=== PATIENT | female | born 1995 | race Caucasian/White ===

== ENCOUNTER 2017-03-27 01:25 | Inpatient (IN) | payer OTHER ==
[2017-03-27] MEDS ORDERED: morphine CARPU-JECT 2 MG/1 ML DISP.SYRIN IM ONE (02:07)
--- NOTE | 2017-03-27 02:07 | PDOC ---
History of Present Illness - General History Source: Patient Exam Limitations: No Limitations - History of Present Illness Initial Comments: 03/27/17 02:12 The patient is a 21 year old female with significant past medical history of sickle cell disease diagnosed as a young child, last transfusion summer 2015, and DVT (no longer on lovenox) who presents to the ED for sickle cell crisis. Patient reports she is compliant with her medications, but has had diffuse pain throughout. She also reports chills, but no fever. The patient denies diaphoresis, cough, SOB, chest pain, and palpitations. The patient denies abdominal pain, nausea, vomiting, and diarrhea. Allergies: ceftriaxone, ceftriaxone sodium, hydromorphone HCl, penicillins Social History: No alcohol, tobacco, or drug use reported. Past Surgical History: Cholecystectomy PCP: Dr. Phu Crow <Noy Swenson - Last Filed: 03/27/17 02:12> - General History Source: Patient <Kermit Babcock - Last Filed: 03/27/17 19:16> - General Chief Complaint: Pain, Acute Stated Complaint: PAIN Time Seen by Provider: 03/27/17 02:03 Past History <Noy Swenson - Last Filed: 03/27/17 02:12> - Past Medical History Anemia: Yes (sickle cell) Asthma: No Cancer: No Cardiac Disorders: No CVA: No COPD: No Dementia: No Diabetes: No Dialysis: No GI Disorders: No Disorders: No HTN: No Hypercholesterolemia: No HIV: No Kidney Stones: No Liver Disease: No Suicide Attempt (Hx): No Seizures: No Thyroid Disease: No - Surgical History Abdominal Surgery: No Appendectomy: No Cardiac Surgery: No Cholecystectomy: Yes Lung Surgery: No Neurologic Surgery: No - Reproductive History Spontaneous : 2 - Immunization History Immunization Up to Date: Yes - Psycho/Social/Smoking Cessation Hx Anxiety: No Suicidal Ideation: No Smoking Status: No Smoking History: Current every day smoker Years of Tobacco Use: 0 Have you smoked in the past 12 months: Yes Number of Cigarettes Smoked Daily: 10 Information on smoking cessation initiated: No Hx Alcohol Use: Yes Drug/Substance Use Hx: Yes Substance Use Type: None Hx Substance Use Treatment: No <Kermit Babcock - Last Filed: 03/27/17 19:16> - Past Medical History Allergies/Adverse Reactions: Allergies Allergy/AdvReac Type Severity Reaction Status Date / Time ceftriaxone Allergy Verified 03/27/17 02:05 ceftriaxone sodium Allergy rash Verified 03/27/17 02:05 [From Rocephin] redness hydromorphone HCl Allergy Rash Verified 03/27/17 02:05 [From Dilaudid] Penicillins Allergy Rash Verified 03/27/17 02:05 Home Medications: Ambulatory Orders Hydroxyurea [Hydrea] 1,000 mg PO DAILY 03/13/16 Multivitamins [Multivit ([facility] Formulary)] 1 tab PO DAILY #30 tab 09/02/16 Folic Acid - 1 mg PO DAILY tablet 10/11/16 Gabapentin [Neurontin -] 600 mg PO Q6HPO 30 Days 10/11/16 Levofloxacin [Levaquin -] 500 mg PO DAILY #4 tablet 10/11/16 Oxycodone HCl [Roxicodone -] 5 mg PO Q8H PRN 3 Days MDD 3 10/11/16 Review of Systems - Review of Systems Able to Perform ROS?: Yes Comments:: 03/27/17 02:13 CONSTITUTIONAL: +chills Absent: fever, no fatigue EYES: Absent: visual changes ENT: Absent: ear pain, no sore throat CARDIOVASCULAR: Absent: chest pain, no palpitations RESPIRATORY: Absent: cough, no SOB GI: Absent: abdominal pain, no nausea, no vomiting, no constipation, no diarrhea GENITOURINARY: Absent: dysuria, no frequency, no hematuria MUSCULOSKELETAL: +diffuse pain throughout the body SKIN: Absent: rash NEURO: Absent: headache <Bharrat,Noy - Last Filed: 03/27/17 02:12> *Physical Exam - Vital Signs Last Vital Signs Temp Pulse Resp BP Pulse Ox 98.2 F 89 18 117/64 98 03/27/17 02:01 03/27/17 02:01 03/27/17 02:01 03/27/17 02:01 03/27/17 02:01 - Physical Exam Comments: 03/27/17 02:13 GENERAL: Well-appearing, well-nourished. No apparent distress. HEENT: Normocephalic, atraumatic. PERRL, EOM intact. CARDIOVASCULAR: Normal S1, S2. Regular rate and rhythm. PULMONARY: Clear to auscultation bilaterally. ABDOMEN: Soft, non-distended, non-tender. EXTREMITIES: Normal ROM in all four extremities. No gross deformities. SKIN: Warm, dry. No rash NEUROLOGICAL: No focal neurological deficits. <Noy Swenson - Last Filed: 03/27/17 02:12> - Vital Signs Last Vital Signs Temp Pulse Resp BP Pulse Ox 98.2 F 89 18 117/64 98 03/27/17 02:01 03/27/17 02:01 03/27/17 02:01 03/27/17 02:01 03/27/17 02:01 <Kermit Babcock - Last Filed: 03/27/17 19:16> ED Treatment Course - LABORATORY CBC & Chemistry Diagram: 03/27/17 08:45 03/27/17 08:45 <Kermit Babcock - Last Filed: 03/27/17 19:16> Medical Decision Making - Medical Decision Making 03/27/17 19:16 Dr. Babcock: The scribe's documentation has been prepared under my direction and personally reviewed by me in its entirery. I confirm that the note above accurately reflects all work, treatment, procedures, and medical decision making performed by me. <Kermit Babcock - Last Filed: 03/27/17 19:16> *DC/Admit/Observation/Transfer - Attestations Scribe Attestion: 03/27/17 02:13 Documentation prepared by Noy Swenson, acting as medical specialist for Kermit Babcock MD/. <Noy Swenson - Last Filed: 03/27/17 02:12> - Discharge Dispostion Admit: Yes <Kermit Babcock - Last Filed: 03/27/17 19:16> Diagnosis at time of Disposition: Sickle cell crisis, Sickle cell pain crisis - Discharge Dispostion Condition at time of disposition: Fair - Referrals
[2017-03-27] MEDS ORDERED: SODIUM CHLORIDE 1,000 ML IV STA (02:08)
[2017-03-27] MEDS ORDERED: morphine CARPU-JECT 4 MG/1 ML DISP.SYRIN ONE ×3 (02:15→07:30)
[2017-03-27 02:59] LABS: MCH 30.2 pg (25.7-33.7); MCHC 33.4 g/dl (32.0-36.0); MEAN CELL VOLUME 90.3 fl (80-96); MEAN PLT VOLUME 7.2 fl (7.5-11.1); PLATELET COUNT 638 K/MM3 (134-434); WHITE BLOOD COUNT 21.3 K/mm3 (4.0-10.0)
[2017-03-27 03:13] LABS: INR 1.21 (0.82-1.09); PROTHROMBIN TIME (PATIENT) 13.4 SEC (9.98-11.88)
[2017-03-27 03:17] LABS: ALBUMIN 4.4 g/dl (3.4-5.0); ANION GAP 15 (8-16); BILIRUBIN,TOTAL 2.8 mg/dL (0.2-1.0); CALCIUM 8.9 mg/dL (8.5-10.1); CO2 21 mmol/L (21-32); CREATININE 0.6 mg/dL (0.55-1.02); GLUCOSE,RANDOM 113 mg/dL (74-106); SGPT/ALT 61 U/L (12-78)
[2017-03-27 03:18] LABS: ALK PHOS 127 U/L (45-117)
[2017-03-27 03:21] LABS: SGOT/AST 43 U/L (15-37)
[2017-03-27] MEDS ORDERED: morphine CARPU-JECT 2 MG/1 ML DISP.SYRIN IVPUSH ONE (03:28)
[2017-03-27] MEDS ORDERED: morphine CARPU-JECT 2 MG/1 ML DISP.SYRIN ONE (03:43)
[2017-03-27] MEDS ORDERED: LIDOCAINE 2.5%/PRILOCAINE 2.5% (5 Gram/TUBE) TP ONE (04:02)
[2017-03-27] MEDS ORDERED: DEXTROSE 5%-0.45% SALINE 1,000 ML IV SCH (04:45)
--- NOTE | 2017-03-27 04:49 | HP ---
Addendum entered and electronically signed by Estefani Russell RES 03/27/17 05: 58: A/P -leukocytosis 21.3 likely reactive due to spleninc sequestration (very high retic) -monitor cbc, ua Original Note: CHIEF COMPLAINT: "it hurts to walk" PCP: Dr Crow This is a 20 yo F with PMH of sickle cell disease, multiple crises, acute chest syndrome 10/20 s/p exchange transfusion through port, who presents due to sickle cell crisis with diffuse bone pain. Reports diffuse, worsening body/bone pain x 10 days, flank pain, abd pain, escalated to the point where its it too painful to walk. Denies chest pain, cough or sob. Denies f/c, h/a, dysuria, diarrhea, ocnstipation, melena, hematochezia, easy bleeding or bruising, numbness or paresthesia. ER course was notable for: (1) labs (2) cxr (3) benadryl, 1 L ns, morphine Recent Travel: denies PAST MEDICAL HISTORY: Sickle cell disease diagnosed as a young child, exchange transfusion 10/08/16 h/o DVT (no longer on lovenox) 2 spontaneous abortions PAST SURGICAL HISTORY: Cholecystectomy Social History: Smoking: current smoker Alcohol: denies Drugs: denies Allergies ceftriaxone Allergy (Verified 03/27/17 02:05) ceftriaxone sodium [From Rocephin] Allergy (Verified 03/27/17 02:05) rash redness hydromorphone HCl [From Dilaudid] Allergy (Verified 03/27/17 02:05) Rash Penicillins Allergy (Verified 03/27/17 02:05) Rash HOME MEDICATIONS: Home Medications Medication Instructions Recorded Hydroxyurea [Hydrea] 1,000 mg PO DAILY 03/13/16 Multivitamins [Multivit ([facility] 1 tab PO DAILY #30 tab 09/02/16 Formulary)] Folic Acid - 1 mg PO DAILY tablet 10/11/16 Gabapentin [Neurontin -] 600 mg PO Q6HPO 30 Days 10/11/16 Levofloxacin [Levaquin -] 500 mg PO DAILY #4 tablet 10/11/16 Oxycodone HCl [Roxicodone -] 5 mg PO Q8H PRN 3 Days MDD 3 10/11/16 REVIEW OF SYSTEMS CONSTITUTIONAL: Absent: fever, chills, diaphoresis, generalized weakness HEENT: Absent: rhinorrhea, nasal congestion, throat pain, throat swelling CARDIOVASCULAR: Absent: chest pain, syncope, palpitations, irregular heart rate, lightheadedness , peripheral edema RESPIRATORY: Absent: cough, shortness of breath, dyspnea with exertion, orthopnea, wheezing, stridor, hemoptysis GASTROINTESTINAL: Absent: nausea, vomiting, diarrhea, constipation, melena, hematochezia GENITOURINARY: Absent: dysuria, hematuria MUSCULOSKELETAL: Absent: joint swelling SKIN: Absent: rash, itching, pallor HEMATOLOGIC/IMMUNOLOGIC: Absent: easy bleeding, easy bruising, lymphadenopathy, frequent infections ENDOCRINE: Absent: unexplained weight gain, unexplained weight loss, heat intolerance, cold intolerance NEUROLOGIC: Absent: headache, focal weakness or paresthesias, dizziness PSYCHIATRIC: Absent: anxiety, depression PHYSICAL EXAMINATION Vital Signs - 24 hr 03/27/17 03/27/17 01:45 02:01 Temperature 98.2 F Pulse Rate 89 Respiratory 18 Rate Blood Pressure 117/64 O2 Sat by Pulse 98 98 Oximetry (%) GENERAL: Awake, alert, and fully oriented, in no acute distress. HEAD: Normal with no signs of trauma. EYES: Pupils equal, round and reactive to light, extraocular movements intact, sclera anicteric, conjunctiva clear. No lid lag. EARS, NOSE, THROAT: Moist mucous membranes. NECK: supple without lymphadenopathy, JVD, or masses. LUNGS: Breath sounds equal, clear to auscultation bilaterally. No wheezes, and no crackles. No accessory muscle use. HEART: Regular rate and rhythm, normal S1 and S2 ABDOMEN: Soft, mildly diffusely nontender, not distended, normoactive bowel sounds, no guarding, no rebound, no masses. slight hepatomegaly and splenomegaly. MUSCULOSKELETAL: diffuse tenderness UPPER EXTREMITIES: 2+ pulses, warm, well-perfused. No cyanosis. No clubbing. No peripheral edema. LOWER EXTREMITIES: 2+ pulses, warm, well-perfused. No calf tenderness. No peripheral edema. NEUROLOGICAL: Cranial nerves II-XII grossly intact. Normal speech. PSYCHIATRIC: Cooperative. Good eye contact. Appropriate mood and affect. SKIN: Warm, dry Laboratory Results - last 24 hr 03/27/17 03/27/17 03/27/17 01:45 02:45 02:45 WBC 21.3 H D RBC 3.04 L Hgb 9.2 L Hct 27.4 L MCV 90.3 MCHC 33.4 RDW 21.0 H D Plt Count 638 H D MPV 7.2 L Neutrophils % Y Lymphocytes % Y Retic Count 11.49 H* D INR 1.21 H Sodium 143 Potassium 3.9 Chloride 107 Carbon Dioxide 21 Anion Gap 15 BUN 8 D Creatinine 0.6 Creat Clearance w eGFR > 60 Random Glucose 113 H D Calcium 8.9 Total Bilirubin 2.8 H D AST 43 H ALT 61 D Alkaline Phosphatase 127 H D Total Protein 8.0 D Albumin 4.4 D Serum , Qual 03/27/17 02:45 WBC RBC Hgb Hct MCV MCHC RDW Plt Count MPV Neutrophils % Lymphocytes % Retic Count INR Sodium Potassium Chloride Carbon Dioxide Anion Gap BUN Creatinine Creat Clearance w eGFR Random Glucose Calcium Total Bilirubin AST ALT Alkaline Phosphatase Total Protein Albumin Serum , Qual Negative ASSESSMENT/PLAN: This is a 20 yo F with PMH of sickle cell disease, multiple crises, acute chest syndrome 10/20 s/p exchange transfusion through port, who presents due to sickle cell crisis with diffuse bone pain. Sickle Cell Crisis -hgb drop from 11 baseline to 9.2 -retic 11.49, likely splenic sequestration, LFTs mildly elevated, below baseine , unlikely hepatic sequestration -s/p 1L bolus NS -D51/2NS @125 to avoid hypernatremia in sickle cell patient -morphine 4mg Q4H PNR -continue home Hydroxyurea 1g POd -folic acid, multivitamins -continue home gabapentin 600 q 6 -hold home effexor 5 q 6 -daily AM CXR to monitor for appearance of acute chest up to at lest 48 hr s/p admission -Lovenox to address hypercoagulable state risk -Dr Morrow consult FEN D51/2NS @125 lytes stable regular diet Jax Dispo: admit med kehinde Problem List - Problem (1) Sickle cell crisis Code(s): D57.00 - HB-SS DISEASE WITH CRISIS, UNSPECIFIED (2) Sickle cell pain crisis Code(s): D57.00 - HB-SS DISEASE WITH CRISIS, UNSPECIFIED (3) Sickle cell anemia Code(s): D57.1 - SICKLE-CELL DISEASE WITHOUT CRISIS Qualifiers: Sickle-cell associated disorders: with unspecified crisis Qualified Code(s): D57.00 - Hb-SS disease with crisis, unspecified; D57.0 - Hb-SS disease with crisis Visit type - Emergency Visit Emergency Visit: Yes ED Registration Date: 03/27/17 Care time: The patient presented to the Emergency Department on the above date and was hospitalized for further evaluation of their emergent condition. - New Patient This patient is new to me today: Yes Date on this admission: 03/27/17 - Critical Care Critical Care patient: No
--- NOTE | 2017-03-27 05:49 | PN ---
Teaching Attending Note Name of Resident: Estefani Russell ATTENDING PHYSICIAN STATEMENT I saw and evaluated the patient. I reviewed the resident's note and discussed the case with the resident. I agree with the resident's findings and plan as documented. SUBJECTIVE: 21 year old female with history of SS disease presents c/o 3 day history of generalized pain 10/10 in intensity . PAST MEDICAL HISTORY: Sickle cell disease Acute chest syndrome 2016 Exchange transfusion DVT PAST SURGICAL HISTORY: Cholecystectomy Social History: Smoking: current smoker Alcohol: denies Drugs: denies Allergies ceftriaxone Allergy (Verified 03/27/17 02:05) ceftriaxone sodium [From Rocephin] Allergy (Verified 03/27/17 02:05) rash redness hydromorphone HCl [From Dilaudid] Allergy (Verified 03/27/17 02:05) Rash Penicillins Allergy (Verified 03/27/17 02:05) Rash HOME MEDICATIONS: Home Medications Medication Instructions Recorded Hydroxyurea [Hydrea] 1,000 mg PO DAILY 03/13/16 Multivitamins [Multivit ([facility] 1 tab PO DAILY #30 tab 09/02/16 Formulary)] Folic Acid - 1 mg PO DAILY tablet 10/11/16 Gabapentin [Neurontin -] 600 mg PO Q6HPO 30 Days 10/11/16 Levofloxacin [Levaquin -] 500 mg PO DAILY #4 tablet 10/11/16 Oxycodone HCl [Roxicodone -] 5 mg PO Q8H PRN 3 Days MDD 3 10/11/16 OBJECTIVE: Vital Signs Temperature 98.2 F 03/27/17 02:01 Pulse Rate 89 03/27/17 02:01 Respiratory Rate 18 03/27/17 02:01 Blood Pressure 117/64 03/27/17 02:01 O2 Sat by Pulse Oximetry (%) 98 03/27/17 02:01 LUNGS: Breath sounds equal, clear to auscultation bilaterally. No wheezes, and no crackles. No accessory muscle use. HEART: Regular rate and rhythm, normal S1 and S2 ABDOMEN: Soft, mildly diffusely nontender, not distended, normoactive bowel sounds, no guarding, no rebound, no masses. slight hepatomegaly and splenomegaly. MUSCULOSKELETAL: diffuse tenderness UPPER EXTREMITIES: 2+ pulses, warm, well-perfused. No cyanosis. No clubbing. No peripheral edema. LOWER EXTREMITIES: 2+ pulses, warm, well-perfused. No calf tenderness. No peripheral edema. Abnormal Lab Results 03/27/17 03/27/17 03/27/17 01:45 02:45 02:45 WBC 21.3 H D RBC 3.04 L Hgb 9.2 L Hct 27.4 L RDW 21.0 H D Plt Count 638 H D MPV 7.2 L Retic Count 11.49 H* D INR 1.21 H Random Glucose 113 H D Total Bilirubin 2.8 H D AST 43 H Alkaline Phosphatase 127 H D CXR - no acute pathology ASSESSMENT AND PLAN: 1. Acute SS pain crisis in a patient with SS disease - HB is stable. - IVF - Incentive spirometry - Monitor LDH, Retic count -c/w hydrea and folic acid - PPX Lovenox 2. Leukocytosis - likely reactive however infection can not be excluded - UA - monitor CBC -if no improvement - consider other sources 3. DVT ppx - Lvenox SC
[2017-03-27 07:24] LABS: ANISOCYTOSIS 2+; MICROCYTOSIS 1+; POIKILOCYTOSIS 2+
[2017-03-27] MEDS: morphine CARPU-JECT 4 MG/1 ML DISP.SYRIN IVPUSH PRN ×5 (07:32→22:45)
[2017-03-27 09:07] LABS: BASOPHIL 0.7 % (0-2.0); EOSINOPHIL 1.8 % (0-4.5); MCH 31.1 pg (25.7-33.7); MCHC 34.5 g/dl (32.0-36.0); MEAN PLT VOLUME 7.3 fl (7.5-11.1); NEUTROPHILS 53.8 % (42.8-82.8); PLATELET COUNT 567 K/MM3 (134-434); RDW 21.8 % (11.6-15.6); WHITE BLOOD COUNT 16.1 K/mm3 (4.0-10.0)
[2017-03-27] MEDS ORDERED: FOLIC ACID 1 MG TABLET (FP) ONE (09:19)
[2017-03-27] MEDS ORDERED: ENOXAPARIN NA (PORCINE) 40 MG/0.4 ML DISP.SYRIN SQ ONE (09:20)
[2017-03-27] MEDS: FOLIC ACID 1 MG TABLET (FP) PO SCH (09:23)
[2017-03-27] MEDS: ENOXAPARIN NA (PORCINE) 40 MG/0.4 ML DISP.SYRIN SQ SCH (09:24)
[2017-03-27 09:26] LABS: INR 1.18 (0.82-1.09)
[2017-03-27 09:29] LABS: ACTIVATED PTT 23.3 SECONDS (26.9-34.4)
[2017-03-27 09:34] LABS: ALBUMIN 3.7 g/dl (3.4-5.0); ANION GAP 7 (8-16); BILIRUBIN,TOTAL 6.3 mg/dL (0.2-1.0); CALCIUM 8.1 mg/dL (8.5-10.1); CO2 26 mmol/L (21-32); GLUCOSE,RANDOM 89 mg/dL (74-106); PHOSPHOROUS 4.1 mg/dL (2.5-4.9); SGOT/AST 247 U/L (15-37); TOT PROT 6.7 g/dl (6.4-8.2)
[2017-03-27 09:35] LABS: ALK PHOS 188 U/L (45-117); CREATININE 0.6 mg/dL (0.55-1.02); SGPT/ALT 163 U/L (12-78)
[2017-03-27] MEDS: HYDROXYUREA 500 MG CAPSULE PO SCH (10:16)
[2017-03-27] MEDS: MULTIVITAMINS (DAILY MVI) TABLET (FP) PO SCH (10:16)
[2017-03-27] MEDS: DEXTROSE 5%-0.45% SALINE 1,000 ML IV SCH ×2 (10:34→17:30)
[2017-03-27 11:22] VITALS: BMI 24.3
[2017-03-27 12:39] LABS: POLYCHROMASIA 2+
[2017-03-27 12:40] LABS: ANISOCYTOSIS 3+; HYPOCHROMIA 1+; MICROCYTOSIS 2+; POIKILOCYTOSIS 1+; TARGET CELLS FEW
[2017-03-27] MEDS ORDERED: PT OWN MED DRAWER 7, Y5N ONE (18:31)
--- NOTE | 2017-03-27 21:32 | PN ---
Progress Note (short form) - Note Progress Note: Consult dictated 21 year old followed at [facility] by Dr. Crow. On hydrea 1000 mg daily. Previously monthly transfusions, but states she has not had transfusions since she left [facility] in 10/20 with acute chest syndrome and after exchange transfusion. Prior history includes DVT of LLE. Presents now with 3 days of severe pain especially involving LE's. Has right hip pains. Has negative chest X-ray, but some pain on deep inspiration on left side. Had increase in LFT's including bilirubin with sono revealing hepatomegaly ( prior cholecystectomy) ON IV hydration, analgesics, folate , hydrea. To monitor CBC, retics. To obtain Duplex LE's. To add levoquin.
--- NOTE | 2017-03-27 23:35 | CONS ---
DATE OF CONSULTATION: 03/27/2017 HISTORY OF PRESENT ILLNESS: This is a 21-year-old with sickle cell disease who comes in with several days of sever pain, especially in her lower extremities. The patient has been hospitalized multiple times in the past. In 2016, she underwent exchange transfusion. Previously, she has been followed by Dr. Crow at [facility]. She had been transfused frequently, once monthly, but states that since her exchange transfusion, she only was seen once by Dr. Crow during her hospitalization. PAST MEDICAL HISTORY: Includes DVT of the left lower extremity and cholecystectomy. SOCIAL HISTORY: The patient smokes. ALLERGIES: Include CEFTRIAXONE and PENICILLIN. PENICILLIN causes a rash. HYDROMORPHONE causes a rash. CEFTRIAXONE causes a rash. MEDICINES: Include Hydrea. The patient states she does not take folic acid. The patient states she is on gabapentin 600 q. 6 h and the patient states she is on morphine long-acting 15 mg twice a day. REVIEW OF SYSTEMS: Denies headaches, diplopia, epistaxis, dysphagia. States she has some difficulty with deep inspiration. No chest pain. No nausea, vomiting, diarrhea. No dysuria. Last period March 05. Severe bone pain. Right hip pain. PHYSICAL EXAMINATION: Vital Signs: Currently, BP 103/71, pulse 71, respiratory 16, afebrile. HEENT: [place]. EOM intact. Oropharynx unremarkable. Lungs: Relatively clear. Cardiac: RSR. Breasts: No dominant masses. Abdomen: Mild tenderness in the right upper quadrant. Fullness right upper quadrant. Minimum tenderness in the left upper quadrant. Lower Extremities: Tenderness to palpation. LABORATORY STUDIES: WBC 21,000 and 16,000. Hematocrit 27 and 24. Platelets 638 and 567,000. Reticulocyte count 11.99%. INR 1.18. Chemistry is 142, 4.1, 109, 26. Creatinine 0.6. Bilirubin 6.3. AST 247. ALT 163. Alkaline phosphatase 188. Chest x-ray: No acute infiltrate. Sonogram of right upper quadrant: Nonrevealing. test negative. IMPRESSION: Sickle cell crisis with bone pain. PLAN: Folic acid, morphine, IV hydration, Hydrea, Lovenox. If the pain persists, will add Levaquin. The patient has a history of DVT and has pain in the upper lateral right thigh. Requests Duplex, which we will order. Thank you. JORGE MENG M.D. [id number]
[2017-03-28] MEDS: morphine CARPU-JECT 4 MG/1 ML DISP.SYRIN IVPUSH PRN ×7 (02:31→22:59)
[2017-03-28 07:53] LABS: BASOPHIL 0.7 % (0-2.0); EOSINOPHIL 3.3 % (0-4.5); MCH 31.4 pg (25.7-33.7); MEAN CELL VOLUME 89.9 fl (80-96); MEAN PLT VOLUME 7.6 fl (7.5-11.1); NEUTROPHILS 63.1 % (42.8-82.8); PLATELET COUNT 555 K/MM3 (134-434); RDW 22.8 % (11.6-15.6); WHITE BLOOD COUNT 11.8 K/mm3 (4.0-10.0)
[2017-03-28] MEDS ORDERED: LEVOFLOXACIN 500 MG IVPB 100 ML IVPB ONE (08:00)
[2017-03-28 09:21] LABS: ALBUMIN 3.8 g/dl (3.4-5.0); ALK PHOS 241 U/L (45-117); ANION GAP 9 (8-16); BILIRUBIN,TOTAL 8.4 mg/dL (0.2-1.0); CALCIUM 8.5 mg/dL (8.5-10.1); CO2 23 mmol/L (21-32); CREATININE 0.6 mg/dL (0.55-1.02); GLUCOSE,RANDOM 89 mg/dL (74-106); SGPT/ALT 381 U/L (12-78); TOT PROT 6.7 g/dl (6.4-8.2)
[2017-03-28 09:22] LABS: SGOT/AST 430 U/L (15-37)
[2017-03-28] MEDS: FOLIC ACID 1 MG TABLET (FP) PO SCH (09:57)
[2017-03-28] MEDS: MULTIVITAMINS (DAILY MVI) TABLET (FP) PO SCH (09:57)
[2017-03-28] MEDS: HYDROXYUREA 500 MG CAPSULE PO SCH (10:00)
[2017-03-28] MEDS: ENOXAPARIN NA (PORCINE) 40 MG/0.4 ML DISP.SYRIN SQ SCH (10:04)
[2017-03-28 11:26] LABS: ANISOCYTOSIS 2+; POIKILOCYTOSIS 1+; POLYCHROMASIA 2+; TARGET CELLS 1+
[2017-03-28] MEDS: DEXTROSE 5%-0.45% SALINE 1,000 ML IV SCH ×2 (13:14→16:37)
--- NOTE | 2017-03-28 15:38 | PN ---
Progress Note (short form) - Note Progress Note: Subjective: The patient was seen and examined at the bedside, she has complaints of right hip pain and b/l lower extremity pain. Liver enzymes trending up, f/u GI consult, hepatitis panel panel Current Medications Generic Name Dose Route Start Last Admin Trade Name Freq PRN Reason Stop Dose Admin Enoxaparin Sodium 40 mg 03/27/17 10:00 03/28/17 10:04 Lovenox - SQ 40 mg DAILY MAYELA Administration Folic Acid 1 mg 03/27/17 10:00 03/28/17 09:57 Folic Acid - PO 1 mg DAILY MAYELA Administration Hydroxyurea 1,000 mg 03/27/17 10:00 03/28/17 10:00 Hydrea - PO 1,000 mg DAILY MAYELA Administration Dextrose/Sodium Chloride 1,000 mls @ 150 mls/hr 03/27/17 10:30 03/28/17 13:14 D5-1/2ns - IV 150 mls/hr ASDIR MAYELA Administration Levofloxacin 100 mls @ 100 mls/hr 03/29/17 10:00 Levaquin 500 Mg Premixed Ivpb - IVPB DAILY MAYELA Morphine Sulfate 4 mg 03/27/17 10:27 03/28/17 13:11 Morphine Injection - IVPUSH 4 mg Q3H PRN Administration PAIN Multivitamins/Minerals/Vitamin C 1 tab 03/27/17 10:00 03/28/17 09:57 Tab-A-Vit - PO 1 tab DAILY MAYELA Administration Objective: Vital Signs Period Temp Pulse Resp BP Sys/Oliveira Pulse Ox Last 24 Hr 98.3 F-98.4 F 66-88 16-20 90-103/46-62 Physical Exam: General: NAD, A&Ox3 Lungs: CTA bilaterally Heart: RRR, S1S2 Abd: Soft, non-tender, non-distended. Normoactive bowel sounds Ext: Warm, well-perfused. B/l lower extremity tenderness throughout. Right hip tenderness. Patient refused ROM Neuro: CN 2-12 intact CBCD WBC 11.8 K/mm3 (4.0-10.0) H 03/28/17 06:18 RBC 2.80 M/mm3 (3.60-5.2) L 03/28/17 06:18 Hgb 8.8 GM/dL (10.7-15.3) L 03/28/17 06:18 Hct 25.1 % (32.4-45.2) L 03/28/17 06:18 MCV 89.9 fl (80-96) 03/28/17 06:18 MCHC 35.0 g/dl (32.0-36.0) 03/28/17 06:18 RDW 22.8 % (11.6-15.6) H 03/28/17 06:18 Plt Count 555 K/MM3 (134-434) H 03/28/17 06:18 MPV 7.6 fl (7.5-11.1) 03/28/17 06:18 CMP Sodium 141 mmol/L (136-145) 03/28/17 06:18 Potassium 4.3 mmol/L (3.5-5.1) 03/28/17 06:18 Chloride 109 mmol/L (98-107) H 03/28/17 06:18 Carbon Dioxide 23 mmol/L (21-32) 03/28/17 06:18 Anion Gap 9 (8-16) 03/28/17 06:18 BUN 4 mg/dL (7-18) L D 03/28/17 06:18 Creatinine 0.6 mg/dL (0.55-1.02) 03/28/17 06:18 Creat Clearance w eGFR > 60 (>60) 03/28/17 06:18 Random Glucose 89 mg/dL (74-106) 03/28/17 06:18 Calcium 8.5 mg/dL (8.5-10.1) 03/28/17 06:18 Total Bilirubin 8.4 mg/dL (0.2-1.0) H D 03/28/17 06:18 AST 430 U/L (15-37) H D 03/28/17 06:18 ALT 381 U/L (12-78) H D 03/28/17 06:18 Alkaline Phosphatase 241 U/L (45-117) H D 03/28/17 06:18 Total Protein 6.7 g/dl (6.4-8.2) 03/28/17 06:18 Albumin 3.8 g/dl (3.4-5.0) 03/28/17 06:18 Assessment: This is a 20 year old woman with sickle cell disease (SS type on electrophoresis in 2012), acute chest syndrome 10/20 s/p exchange transfusion, DVT and cholecystectomy who presents to the ED with body/bone pain x10 days, back pain, right hip pain, difficulty ambulating. Plan: 1) Sickle cell crisis: - Previous admission with acute chest syndrome requiring exchange transfusion - Chest X-ray here negative for acute process - No evidence of splenic sequestration, no splenomegaly on exam, no hypovolemia (BP at baseline), Hgb stable and around baseline - Started on Levaquin empirically, will hold now given worsening LFT (discussed with Dr. Lagunas , leukocytosis on admission, now trending down, f/u UA - Hgb stable - Continue IV fluids - Continue folic acid - Continue Hydroxyurea - Continue multivitamin - Continue Morphine - Appreciate hematology consult 2) Transaminitis: - Elevated direct bilirubin - Hepatitis panel pending - Liver ultrasound with hepatomegaly and probable mild diffuse fatty infiltration of the liver - F/u MRCP to r/o biliary stones - F/u GI consult 3) Hx of DVT - Diagnosed in 2015, no long on anticoagulation - Patient complains of b/l lower extremity pain, ed thigh pain - B/l lower extremity doppler negative for DVT 4) F/E/N: - Regular diet - Monitor electrolytes 5) Prophylaxis: - Lovenox 40mg sq daily - OOB ambulating 6) Dispo: - Once condition improves CODE STATUS: FULL CODE Visit type - Emergency Visit Emergency Visit: Yes ED Registration Date: 03/27/17 Care time: The patient presented to the Emergency Department on the above date and was hospitalized for further evaluation of their emergent condition. - New Patient This patient is new to me today: Yes Date on this admission: 03/28/17 - Critical Care Critical Care patient: No
[2017-03-28] MEDS ORDERED: ONDANSETRON *ODT* 4 MG TABLET SL ONE (16:11)
--- NOTE | 2017-03-28 16:49 | CON.GI ---
Consult Consult Specialty:: GI Referred by:: Hospitalist Service Reason for Consultation:: Abnormnal liver chemistries - History of Present Illness Chief Complaint: "I had bone pain in my legs and right hip" History of Present Illness: 21F Admitted for evaluation of pain in legs and right hip. Called because liver chemistries are rising. In review of [facility] her liver chemistries including transaminases, alkaline phosphatase and bilirubin have been mildly elevated in the past. 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 This has led to multiple blood transfusions spanning from 1999. She denies any abdominal pain She denies any recent travel , known exposure to infectious hepatitides and her tattoos were placed at a tattoo parlor. She had a laparoscopic cholecystectomy several years prior and gives a history of gallstones. - History Source History Provided By: Patient, Medical Record Limitations to Obtaining History: No Limitations - Past Medical History ...LMP: 09/07/16 Heme/Onc: Yes: Sickle Cell Disease (with history of Sickle Cell Crisis, Acute Chest Syndrome) - Past Surgical History Past Surgical History: Yes: Cholecystectomy (laparoscopic, x 2) - Alcohol/Substance Use Hx Alcohol Use: No History of Substance Use: reports: None - Smoking History Smoking history: Never smoked Aproximately how many cigarettes per day: 10 - Social History Usual Living Arrangement: Alone ADL: Independent Occupation: Unemploued Place of : [facility] History of Recent Travel: No Home Medications - Allergies Allergies/Adverse Reactions: Allergies Allergy/AdvReac Type Severity Reaction Status Date / Time ceftriaxone Allergy Verified 03/27/17 02:05 ceftriaxone sodium Allergy rash Verified 03/27/17 02:05 [From Rocephin] redness hydromorphone HCl Allergy Rash Verified 03/27/17 02:05 [From Dilaudid] Penicillins Allergy Rash Verified 03/27/17 02:05 - Home Medications Home Medications: Ambulatory Orders Hydroxyurea [Hydrea] 1,000 mg PO DAILY 03/13/16 Multivitamins [Multivit ([facility] Formulary)] 1 tab PO DAILY #30 tab 09/02/16 Folic Acid - 1 mg PO DAILY tablet 10/11/16 Gabapentin [Neurontin -] 600 mg PO Q6HPO 30 Days 10/11/16 Levofloxacin [Levaquin -] 500 mg PO DAILY #4 tablet 10/11/16 Oxycodone HCl [Roxicodone -] 5 mg PO Q8H PRN 3 Days MDD 3 10/11/16 Family Disease History - Family Disease History Family Disease History: Other: Father (alive: sickle cell trait), Mother (alive : asthma, sickle cell trait, schizophrenia, ? liver problem), Brother (1, asthma ), Sister (1 w/ bipolar dz, asthma 1 w/ Sickle Cell Trait), Son ([place], sickle cell trait), Daughter (1 in infancy from necrotizing enterocolitis, sickle cell trait) Other Family History: No family history of colorectal cancer or other GI malignancy Review of Systems - Review of Systems Constitutional: reports: Weakness. denies: Fever Cardiovascular: reports: Chest Pain (pleuritic at bases bilaterally) Respiratory: denies: Cough, SOB Gastrointestinal: denies: Abdominal Pain Musculoskeletal: reports: Joint Pain Physical Exam-GI Vital Signs: Vital Signs Temperature 98.4 F 03/28/17 13:50 Pulse Rate 80 03/28/17 13:50 Respiratory Rate 16 03/28/17 13:50 Blood Pressure 102/54 03/28/17 13:50 O2 Sat by Pulse Oximetry (%) 96 03/28/17 09:00 Constitutional: Yes: Calm Eyes: Yes: Sclera Icterus Cardiovascular: Yes: Regular Rate and Rhythm, Murmur (2/6 systolic murmur) Respiratory: Yes: CTA Bilaterally Gastrointestinal Inspection: Yes: Scars (+ pelvic surgical scar). No: Distention ...Auscultate: Yes: Normoactive Bowel Sounds ...Palpate: Yes: Hepatomegaly, Tenderness (TTP RUQ). No: Splenomegaly ...Percussion: No: Tympanitic Edema: No Neurological: Yes: Alert, Oriented Labs: CBC, BMP 03/28/17 06:18 03/28/17 06:18 INR, PTT INR 1.18 (0.82-1.09) H 03/27/17 08:45 Imaging - Results Ultrasound: Report Reviewed (hepatomegaly, ? fatty liver, no biliary ductal dilatation) Problem List - Problems (1) Abnormal liver function tests Assessment/Plan: Presentation is not primarily RUQ pain, more of a secondary finding on exam and given her abnormal liver chemistries. Do not suspect Acute Hepatic Crisis. Also hepatic sequestration crisis unlikely as her H/H seems to be stable. Intrahepatic cholestasis in the setting of acute crisis is a possibility superimposed on a baseline underlying liver dysfunction, possibly from iron overload given her history. Would continue supportive measures, minimize hepatotoxic agents Screening for infectious hepatitis seems reasonable as well as further evaluation of her biliary and hepatic anatomy / vasculature with triple phase MRI/MRCP of abdomen with and without gadolinium. Check iron studies / ferritin Minimize hepatotoxic agents including antibiotics if feasible Check LDH AM labs Code(s): R79.89 - OTHER SPECIFIED ABNORMAL FINDINGS OF BLOOD CHEMISTRY
[2017-03-28] MEDS: SODIUM CHLORIDE 1,000 ML IV SCH (19:00)
[2017-03-28 19:11] LABS: URINE APPEARANCE CLEAR; URINE BILIRUBIN NEGATIVE (NEGATIVE); URINE BLOOD NEGATIVE (NEGATIVE); URINE COLOR DKYELLOW; URINE GLUCOSE (UA) NEGATIVE (NEGATIVE); URINE KETONE NEGATIVE (NEGATIVE); URINE LEUK ESTERASE NEGATIVE (NEGATIVE); URINE NITRITE NEGATIVE (NEGATIVE); URINE PROTEIN NEGATIVE (NEGATIVE); URINE UROBILINOGEN 4.0 E.U/dl E.U./dl (0.2-1.0)
--- NOTE | 2017-03-28 21:15 | PN ---
Progress Note (short form) - Note Progress Note: patient seen and examined c/o pain, mostly rt. hip and other bones Last Vital Signs Temp Pulse Resp BP Pulse Ox 98.8 F 94 H 18 101/58 96 03/28/17 19:32 03/28/17 19:32 03/28/17 19:32 03/28/17 19:32 03/28/17 09:00 Cor: RSR, No murmurs, No gallops Lungs: Clear to P&A Abd: Soft, Normal bowel sounds, No organomegaly Ext:No significant edema Skin: No rashes, Integument intact Abnormal Lab Results 03/27/17 03/28/17 03/28/17 08:45 06:18 06:18 WBC 11.8 H RBC 2.80 L Hgb 8.8 L Hct 25.1 L RDW 22.8 H Plt Count 555 H Retic Count 14.46 H* D Chloride 109 H BUN 4 L D Total Bilirubin 8.4 H D Direct Bilirubin AST 430 H D ALT 381 H D Alkaline Phosphatase 241 H D Urine Urobilinogen Crossmatch See Detail 03/28/17 03/28/17 03/28/17 11:14 18:30 21:30 WBC 17.3 H D RBC 2.96 L Hgb 9.2 L Hct 27.1 L RDW 21.7 H Plt Count 467 H Retic Count Chloride BUN Total Bilirubin Direct Bilirubin 5.3 H D AST ALT Alkaline Phosphatase Urine Urobilinogen 4.0 e.u/dl H Crossmatch Active Medications Generic Name Dose Route Start Last Admin Trade Name Freq PRN Reason Stop Dose Admin Diphenhydramine HCl 12.5 mg 03/28/17 21:13 Benadryl Injection - IVPB Q8H PRN DRY SKIN Enoxaparin Sodium 40 mg 03/27/17 10:00 03/28/17 10:04 Lovenox - SQ 40 mg DAILY MAYELA Administration Folic Acid 1 mg 03/27/17 10:00 03/28/17 09:57 Folic Acid - PO 1 mg DAILY MAYELA Administration Hydroxyurea 1,000 mg 03/27/17 10:00 03/28/17 10:00 Hydrea - PO 1,000 mg DAILY MAYELA Administration Sodium Chloride 1,000 mls @ 150 mls/hr 03/28/17 17:15 03/28/17 19:00 Normal Saline - IV 150 mls/hr ASDIR MAYELA Administration Morphine Sulfate 4 mg 03/27/17 10:27 03/28/17 22:59 Morphine Injection - IVPUSH 4 mg Q3H PRN Administration PAIN Multivitamins/Minerals/Vitamin C 1 tab 03/27/17 10:00 03/28/17 09:57 Tab-A-Vit - PO 1 tab DAILY MAYELA Administration a/p 21 y/o with sickle cell crisis pain crisis abnormal LFTs--? cholestasis f/u mrcp iv hydration/pain control/folic acid monitor lfts benadryl for iytching incentive spirometry dvt prophylaxis f/u cultures f/u LDH/retic AVN of rt. hip--ortho consult will follow
[2017-03-28 22:07] LABS: BASOPHIL 0.8 % (0-2.0); EOSINOPHIL 2.2 % (0-4.5); MCHC 33.9 g/dl (32.0-36.0); MEAN CELL VOLUME 91.4 fl (80-96); NEUTROPHILS 71.2 % (42.8-82.8); RDW 21.7 % (11.6-15.6); WHITE BLOOD COUNT 17.3 K/mm3 (4.0-10.0)
[2017-03-28 22:41] LABS: MEAN PLT VOLUME 8.3 fl (7.5-11.1); PLATELET COUNT 467 K/MM3 (134-434)
[2017-03-28 22:43] LABS: ANISOCYTOSIS 2+; PLATELET COMMENT2 NO CLUMPING NOTED; PLATELET ESTIMATE SLT INCREASED (NORMAL); POIKILOCYTOSIS 1+; POLYCHROMASIA 1+
[2017-03-28 22:44] LABS: TARGET CELLS 1+
[2017-03-28 22:48] LABS: HOWELL-JOLLY BODIES SEEN
[2017-03-29] MEDS: SODIUM CHLORIDE 1,000 ML IV SCH ×3 (01:35→21:02)
[2017-03-29] MEDS: morphine CARPU-JECT 4 MG/1 ML DISP.SYRIN IVPUSH PRN ×4 (03:01→20:25)
[2017-03-29 07:51] LABS: BASOPHIL 0.6 % (0-2.0); EOSINOPHIL 3.9 % (0-4.5); MCH 31.8 pg (25.7-33.7); MCHC 35.2 g/dl (32.0-36.0); MEAN CELL VOLUME 90.3 fl (80-96); MEAN PLT VOLUME 7.3 fl (7.5-11.1); NEUTROPHILS 57.8 % (42.8-82.8); PLATELET COUNT 453 K/MM3 (134-434); RDW 22.5 % (11.6-15.6); WHITE BLOOD COUNT 12.2 K/mm3 (4.0-10.0)
[2017-03-29 08:29] LABS: ALBUMIN 3.3 g/dl (3.4-5.0); BILIRUBIN,DIRECT 2.6 mg/dL (0.0-0.2); BILIRUBIN,TOTAL 6.1 mg/dL (0.2-1.0); COCKROFT - GAULT 190.6125; CREATININE 0.4 mg/dL (0.55-1.02); TOT PROT 6.1 g/dl (6.4-8.2)
[2017-03-29 08:56] LABS: ACTIVATED PTT 21.1 SECONDS (26.9-34.4)
[2017-03-29 08:57] LABS: INR 1.2 (0.82-1.09); PROTHROMBIN TIME (PATIENT) 13.2 SEC (9.98-11.88)
[2017-03-29] MEDS: MULTIVITAMINS (DAILY MVI) TABLET (FP) PO SCH (09:08)
[2017-03-29] MEDS: HYDROXYUREA 500 MG CAPSULE PO SCH (09:08)
[2017-03-29] MEDS: FOLIC ACID 1 MG TABLET (FP) PO SCH (09:08)
[2017-03-29] MEDS: ENOXAPARIN NA (PORCINE) 40 MG/0.4 ML DISP.SYRIN SQ SCH (09:08)
[2017-03-29] MEDS ORDERED: LEVOFLOXACIN 500 MG IVPB 100 ML IVPB SCH (10:00)
--- NOTE | 2017-03-29 13:15 | PN ---
Progress Note (short form) - Note Progress Note: patient seen and examined c/o pain, mostly rt. hip and other bones Last Vital Signs Temp Pulse Resp BP Pulse Ox 98.3 F 68 20 105/53 95 03/29/17 14:25 03/29/17 14:25 03/29/17 14:25 03/29/17 14:25 03/28/17 21:00 Cor: RSR, No murmurs, No gallops Lungs: Clear to P&A Abd: Soft, Normal bowel sounds, No organomegaly Ext:No significant edema Skin: No rashes, Integument intact Abnormal Lab Results 03/27/17 03/28/17 03/28/17 08:45 18:30 21:30 WBC 17.3 H D RBC 2.96 L Hgb 9.2 L Hct 27.1 L RDW 21.7 H Plt Count 467 H MPV Retic Count INR PTT (Actin FS) Chloride BUN Creatinine Calcium Total Bilirubin Direct Bilirubin AST ALT Alkaline Phosphatase LD Total Total Protein Albumin Urine Urobilinogen 4.0 e.u/dl H Crossmatch See Detail 03/29/17 03/29/17 03/29/17 06:30 06:30 06:30 WBC 12.2 H RBC 2.46 L Hgb 7.8 L D Hct 22.2 L D RDW 22.5 H Plt Count 453 H MPV 7.3 L D Retic Count 14.04 H* INR PTT (Actin FS) Chloride 109 H BUN 5 L D Creatinine 0.4 L D Calcium 8.0 L Total Bilirubin 6.1 H D Direct Bilirubin 2.6 H D AST 149 H D ALT 282 H D Alkaline Phosphatase 237 H LD Total 343 H D Total Protein 6.1 L Albumin 3.3 L Urine Urobilinogen Crossmatch 03/29/17 06:30 WBC RBC Hgb Hct RDW Plt Count MPV Retic Count INR 1.20 H PTT (Actin FS) 21.1 L Chloride BUN Creatinine Calcium Total Bilirubin Direct Bilirubin AST ALT Alkaline Phosphatase LD Total Total Protein Albumin Urine Urobilinogen Crossmatch Home Medication List Medication Instructions Recorded Confirmed Type Hydroxyurea [Hydrea] 1,000 mg PO DAILY 03/13/16 03/27/17 History Active Medications Generic Name Dose Route Start Last Admin Trade Name Freq PRN Reason Stop Dose Admin Diphenhydramine HCl 12.5 mg 03/28/17 21:13 03/29/17 10:59 Benadryl Injection - IVPB 12.5 mg Q8H PRN Administration DRY SKIN Enoxaparin Sodium 40 mg 03/27/17 10:00 03/29/17 09:08 Lovenox - SQ 40 mg DAILY MAYELA Administration Folic Acid 1 mg 03/27/17 10:00 03/29/17 09:08 Folic Acid - PO 1 mg DAILY MAYELA Administration Hydroxyurea 1,000 mg 03/27/17 10:00 03/29/17 09:08 Hydrea - PO 1,000 mg DAILY MAYELA Administration Sodium Chloride 1,000 mls @ 150 mls/hr 03/28/17 17:15 03/29/17 09:08 Normal Saline - IV 150 mls/hr ASDIR MAYELA Administration Morphine Sulfate 4 mg 03/27/17 10:27 03/29/17 13:21 Morphine Injection - IVPUSH 4 mg Q3H PRN Administration PAIN Multivitamins/Minerals/Vitamin C 1 tab 03/27/17 10:00 03/29/17 09:08 Tab-A-Vit - PO 1 tab DAILY MAYELA Administration a/p 21 y/o with sickle cell crisis pain crisis abnormal LFTs--? cholestasis f/u mrcp iv hydration/pain control/folic acid monitor lfts benadryl for iytching incentive spirometry dvt prophylaxis transfuse PRBCs for cholestasis and crisis AVN of rt. hip--ortho consult will follow
--- NOTE | 2017-03-29 15:44 | PN ---
Physical Exam: SUBJECTIVE: Patient seen and examined. She c/o of gross body pain worsening whenever she moves, the morphine doesn't hold with movement OBJECTIVE: Vital Signs Period Temp Pulse Resp BP Sys/[place] Pulse Ox Last 24 Hr 98.2 F-98.8 F 68-94 18-20 90-113/53-66 95 PE Neuro: alert, awake, cn 2-12intact Pulm: distant, clear, catches breath d/t pain CV: s1 s2 rrr no mrg Abd: s nt nd + bs Ext: warm, no le edema Msk: R hip tenderness Laboratory Results - last 24 hr 03/28/17 03/29/17 03/29/17 21:30 06:30 06:30 WBC 17.3 H D 12.2 H RBC 2.96 L 2.46 L Hgb 9.2 L 7.8 L D Hct 27.1 L 22.2 L D MCV 91.4 90.3 MCHC 33.9 35.2 RDW 21.7 H 22.5 H Plt Count 467 H 453 H MPV 8.3 7.3 L D Neutrophils % 71.2 57.8 Lymphocytes % 21.4 D 31.1 D Monocytes % 4.4 6.6 Eosinophils % 2.2 3.9 Basophils % 0.8 0.6 Platelet Estimate Slt increased Platelet Comment No clumping noted Polychromasia 1+ Poikilocytosis 1+ Anisocytosis 2+ Sickle Cells 1+ Target Cells 1+ [place] [employer] Bodies Seen Retic Count INR PTT (Actin FS) Fibrinogen Sodium 140 Potassium 4.3 Chloride 109 H Carbon Dioxide 21 Anion Gap 10 BUN 5 L D Creatinine 0.4 L D Random Glucose 78 Calcium 8.0 L Total Bilirubin 6.1 H D Direct Bilirubin 2.6 H D AST 149 H D ALT 282 H D Alkaline Phosphatase 237 H LD Total 343 H D Total Protein 6.1 L Albumin 3.3 L Urine Color Urine Appearance Urine pH Ur Specific [place] Urine Protein Urine Glucose (UA) Urine Ketones Urine Blood Urine Nitrite Urine Bilirubin Urine Urobilinogen Ur Leukocyte Esterase Hepatitis A IgM Ab Hep Bs Antigen Hep B Core IgM Ab Hepatitis C Ab (EIA) Blood Type Antibody Screen Crossmatch 03/29/17 03/29/17 03/29/17 06:30 06:30 06:30 WBC RBC Hgb Hct MCV MCHC RDW Plt Count MPV Neutrophils % Lymphocytes % Monocytes % Eosinophils % Basophils % Platelet Estimate Platelet Comment Polychromasia Poikilocytosis Anisocytosis Sickle Cells Target Cells [place] Bodies Retic Count 14.04 H* INR 1.20 H PTT (Actin FS) 21.1 L Fibrinogen 342.0 Sodium Potassium Chloride Carbon Dioxide Anion Gap BUN Creatinine Random Glucose Calcium Total Bilirubin Cancelled Direct Bilirubin Cancelled AST Cancelled ALT Cancelled Alkaline Phosphatase Cancelled LD Total Total Protein Cancelled Albumin Cancelled Urine Color Urine Appearance Urine pH Ur Specific [place] Urine Protein Urine Glucose (UA) Urine Ketones Urine Blood Urine Nitrite Urine Bilirubin Urine Urobilinogen Ur Leukocyte Esterase Hepatitis A IgM Ab Hep Bs Antigen Hep B Core IgM Ab Hepatitis C Ab (EIA) Blood Type Antibody Screen Crossmatch Active Medications Generic Name Dose Route Start Last Admin Trade Name Freq PRN Reason Stop Dose Admin Diphenhydramine HCl 12.5 mg 03/28/17 21:13 03/29/17 10:59 Benadryl Injection - IVPB 12.5 mg Q8H PRN Administration DRY SKIN Enoxaparin Sodium 40 mg 03/27/17 10:00 03/29/17 09:08 Lovenox - SQ 40 mg DAILY MAYELA Administration Folic Acid 1 mg 03/27/17 10:00 03/29/17 09:08 Folic Acid - PO 1 mg DAILY MAYELA Administration Hydroxyurea 1,000 mg 03/27/17 10:00 03/29/17 09:08 Hydrea - PO 1,000 mg DAILY MAYELA Administration Sodium Chloride 1,000 mls @ 150 mls/hr 03/28/17 17:15 03/29/17 09:08 Normal Saline - IV 150 mls/hr ASDIR MAYELA Administration Morphine Sulfate 4 mg 03/27/17 10:27 03/29/17 13:21 Morphine Injection - IVPUSH 4 mg Q3H PRN Administration PAIN Multivitamins/Minerals/Vitamin C 1 tab 03/27/17 10:00 03/29/17 09:08 Tab-A-Vit - PO 1 tab DAILY MAYELA Administration Imaging: - Liver ultrasound with hepatomegaly and probable mild diffuse fatty infiltration of the liver Assessment: 20 year old woman with sickle cell disease (SS type on electrophoresis in 2012), acute chest syndrome 10/20 s/p exchange transfusion, DVT and cholecystectomy admitted with body/bone pain x10 days, back pain, right hip pain, difficulty ambulating. Plan: 1. Sickle cell crisis - No evidence of splenic sequestration - Retic count essentially unchanged - Continue to hold levaquin, wbc down trending, UA negative - Continue IV fluids - Continue folic acid - Continue Hydroxyurea - Continue multivitamin - Continue Morphine q3 2. Transaminitis - Abd MRI shows iron deposition of liver and spleen, no hepatic lesions to suggest HCC, no pancreaticobiliary dilation - Direct bili, LFT's and alk phos improved today 3. Avascular necrosis of R femoral head - MRI to further evaluate injury - Appreciate ortho consult 4. Hx of DVT - Diagnosed in 2016, no long on anticoagulation - B/l lower extremity doppler negative for DVT 5. Ppx - Lovenox 40mg sq daily - OOB ambulating/PT WBAT Visit type - Emergency Visit Emergency Visit: Yes ED Registration Date: 03/27/17 Care time: The patient presented to the Emergency Department on the above date and was hospitalized for further evaluation of their emergent condition. - New Patient This patient is new to me today: No - Critical Care Critical Care patient: No
--- NOTE | 2017-03-29 15:46 | CON.ORTH ---
Consult Consult Specialty:: Orthopedics Reason for Consultation:: R hip pain - History of Present Illness Chief Complaint: Right hip pain History of Present Illness: 21 y/o female with a history of sickle cell anemia admitted for evaluation of right hip pain. The patient states that she has been having pain to the lateral and posterior hip for several months, worsened over the past few weeks. The patient denies trauma/falls/injury. No back pain, paresthesias, saddle anesthesia, fever, chills. No other complaints. - History Source History Provided By: Patient Limitations to Obtaining History: No Limitations - Past Medical History ...LMP: 09/07/16 Heme/Onc: Yes: Sickle Cell Disease - Past Surgical History Past Surgical History: Yes: Cholecystectomy (laparoscopic, x 2) - Alcohol/Substance Use Hx Alcohol Use: No History of Substance Use: reports: None - Smoking History Smoking history: Never smoked Have you smoked in the past 12 months: Yes Aproximately how many cigarettes per day: 10 - Social History Usual Living Arrangement: Alone ADL: Independent Occupation: Unemploued History of Recent Travel: No Home Medications - Allergies Allergies/Adverse Reactions: Allergies Allergy/AdvReac Type Severity Reaction Status Date / Time ceftriaxone Allergy Verified 03/27/17 02:05 ceftriaxone sodium Allergy rash Verified 03/27/17 02:05 [From Rocephin] redness hydromorphone HCl Allergy Rash Verified 03/27/17 02:05 [From Dilaudid] Penicillins Allergy Rash Verified 03/27/17 02:05 - Home Medications Home Medications: Ambulatory Orders Hydroxyurea [Hydrea] 1,000 mg PO DAILY 03/13/16 Multivitamins [Multivit ([facility] Formulary)] 1 tab PO DAILY #30 tab 09/02/16 Folic Acid - 1 mg PO DAILY tablet 10/11/16 Gabapentin [Neurontin -] 600 mg PO Q6HPO 30 Days 10/11/16 Levofloxacin [Levaquin -] 500 mg PO DAILY #4 tablet 10/11/16 Oxycodone HCl [Roxicodone -] 5 mg PO Q8H PRN 3 Days MDD 3 10/11/16 Family Disease History - Family Disease History Family Disease History: Other: Father (alive: sickle cell trait), Mother (alive : asthma, sickle cell trait, schizophrenia, ? liver problem), Brother (1, asthma ), Sister (1 w/ bipolar dz, asthma 1 w/ Sickle Cell Trait), Son ([place], sickle cell trait), Daughter (1 in infancy from necrotizing enterocolitis, sickle cell trait) Other Family History: No family history of colorectal cancer or other GI malignancy Review of Systems - Review of Systems Constitutional: reports: No Symptoms Eyes: reports: No Symptoms HENT: reports: No Symptoms Neck: reports: No Symptoms Cardiovascular: reports: No Symptoms Respiratory: reports: No Symptoms Gastrointestinal: reports: No Symptoms Genitourinary: reports: No Symptoms Musculoskeletal: reports: Joint Pain (Right hip pain) Neurological: reports: No Symptoms Physical Exam for Ortho Vital Signs: Vital Signs Temperature 98.3 F 03/29/17 14:25 Pulse Rate 68 03/29/17 14:25 Respiratory Rate 20 03/29/17 14:25 Blood Pressure 105/53 03/29/17 14:25 O2 Sat by Pulse Oximetry (%) 95 03/28/17 21:00 Constitutional: Yes: Well Nourished, No Distress, Calm Neck: Yes: WNL, Supple, Trachea Midline Cardiovascular: Yes: WNL, Regular Rate and Rhythm Respiratory: Yes: WNL, Regular Extremities: Yes: WNL Integumentary: Yes: WNL Neurological: Yes: WNL, Alert, Oriented Psychiatric: Yes: WNL, Alert, Oriented Labs: CBC, BMP 03/29/17 06:30 03/29/17 06:30 INR, PTT INR 1.20 (0.82-1.09) H 03/29/17 06:30 Fibrinogen 342.0 mg/dL (238-498) 03/29/17 06:30 - Lower Extremity Hip: Yes: Right, Decreased ROM, Pain, Other (Tender over the greater trochanter. No tenderness anteriorly over the hip. Decreased ROM secondary to pain. Negative impingement. Negative MAHIN. 5/5 hip flexion, abduction, adduction. EHL/FHL intact. NVID.). No: Ecchymosis, Swelling - Affected Extremity Motor Strength: 5/5: Right Leg Peripheral Pulses: 2+ Left Doralis Pedis, 2+ Right Dorsalis Pedis Neuro/Vascular Assessment: Yes: Warm, [place], Normal Sensation Imaging - Results X-ray: Report Reviewed, Image Reviewed, Other (Right hip radiographs suggestive of chronic AVN) Problem List - Problems (1) Avascular necrosis of right femoral head Code(s): M87.051 - IDIOPATHIC ASEPTIC NECROSIS OF RIGHT FEMUR Assessment/Plan 21 y/o female with a h/o sickle cell disease admitted with right AVN of the femoral head -reviewed today's findings with the patient -we will obtain an MRI to further assess the degree of injury -will follow up on results -recommend PT and protective weight bearing
[2017-03-29] MEDS ORDERED: ACETAMINOPHEN 325 MG TABLET (FP) PO ONE (17:05)
--- NOTE | 2017-03-29 17:25 | PN ---
GI Progress Note Subjective: No acute events + diffuse pain complaints some RUQ discomfort - Objective Vital Signs: Vital Signs Temperature 98.3 F 03/29/17 14:25 Pulse Rate 68 03/29/17 14:25 Respiratory Rate 20 03/29/17 14:25 Blood Pressure 105/53 03/29/17 14:25 O2 Sat by Pulse Oximetry (%) 95 03/28/17 21:00 Constitutional: Calm Eyes: Yes: Sclera Icterus Cardiovascular: Yes: Regular Rate and Rhythm Respiratory: Yes: CTA Bilaterally Gastrointestinal Inspection: No: Distention ...Auscultate: Yes: Normoactive Bowel Sounds ...Palpate: No: Tenderness Edema: No Neurological: Yes: Alert, Oriented Labs: CBC, BMP 03/29/17 06:30 03/29/17 06:30 INR, PTT INR 1.20 (0.82-1.09) H 03/29/17 06:30 Fibrinogen 342.0 mg/dL (238-498) 03/29/17 06:30 Hepatic Panel Total Bilirubin 6.1 mg/dL (0.2-1.0) H D 03/29/17 06:30 Direct Bilirubin 2.6 mg/dL (0.0-0.2) H D 03/29/17 06:30 AST 149 U/L (15-37) H D 03/29/17 06:30 ALT 282 U/L (12-78) H D 03/29/17 06:30 Alkaline Phosphatase 237 U/L (45-117) H 03/29/17 06:30 Albumin 3.3 g/dl (3.4-5.0) L 03/29/17 06:30 Laboratory Tests 03/29/17 06:30 LD Total 343 H D Laboratory Tests 03/28/17 10:00 Hepatitis A IgM Ab Negative Hep Bs Antigen Negative Hep B Core IgM Ab Negative Hepatitis C Ab (EIA) <0.1 - ....Imaging MRI: Report Reviewed (No dilated ducts however poor MRCP images. signal changes in liver c/w iron overload) Problem List - Problems (1) Abnormal liver function tests Assessment/Plan: Some improvement. would think that if biliary obstruction causing this LFT abnormality there would be some ductal dilatation. Suspect secondary to sickle crisis, possibly cholestasis Check parvovirus B19 If further LFT elevation, further serologic w/u Monitor coags Code(s): R79.89 - OTHER SPECIFIED ABNORMAL FINDINGS OF BLOOD CHEMISTRY
[2017-03-29] MEDS ORDERED: ACETAMINOPHEN 325 MG TABLET (FP) ONE (20:52)
[2017-03-30] MEDS: morphine CARPU-JECT 4 MG/1 ML DISP.SYRIN IVPUSH PRN ×5 (01:10→21:34)
[2017-03-30] MEDS: SODIUM CHLORIDE 1,000 ML IV SCH ×3 (05:45→18:19)
[2017-03-30 08:55] LABS: BASOPHIL 0.9 % (0-2.0); EOSINOPHIL 4.9 % (0-4.5); MCH 31.7 pg (25.7-33.7); MCHC 35.1 g/dl (32.0-36.0); MEAN CELL VOLUME 90.3 fl (80-96); MEAN PLT VOLUME 7.3 fl (7.5-11.1); NEUTROPHILS 42.9 % (42.8-82.8); PLATELET COUNT 457 K/MM3 (134-434); RDW 22.8 % (11.6-15.6); WHITE BLOOD COUNT 11.1 K/mm3 (4.0-10.0)
[2017-03-30] MEDS: HYDROXYUREA 500 MG CAPSULE PO SCH (09:26)
[2017-03-30] MEDS: FOLIC ACID 1 MG TABLET (FP) PO SCH (09:26)
[2017-03-30] MEDS: MULTIVITAMINS (DAILY MVI) TABLET (FP) PO SCH ×2 (09:26→09:36)
[2017-03-30] MEDS: ENOXAPARIN NA (PORCINE) 40 MG/0.4 ML DISP.SYRIN SQ SCH (09:26)
[2017-03-30 09:50] LABS: ALBUMIN 3.4 g/dl (3.4-5.0); ALK PHOS 289 U/L (45-117); ANION GAP 10 (8-16); BILIRUBIN,TOTAL 4.6 mg/dL (0.2-1.0); CALCIUM 8.1 mg/dL (8.5-10.1); CO2 23 mmol/L (21-32); CREATININE 0.5 mg/dL (0.55-1.02); GLUCOSE,RANDOM 88 mg/dL (74-106); LDH 285 U/L (84-246); SGOT/AST 112 U/L (15-37); SGPT/ALT 220 U/L (12-78); TOT PROT 6.6 g/dl (6.4-8.2)
[2017-03-30 10:01] LABS: FERRITIN 2199.059 ng/ml (6.9-282.5)
[2017-03-30] MEDS ORDERED: morphine CARPU-JECT 2 MG/1 ML DISP.SYRIN IVPUSH ONE (11:58)
--- NOTE | 2017-03-30 14:16 | PN ---
Physical Exam: SUBJECTIVE: Patient seen and examined. She complaints of bone pain and wants pain medication. She did stand briefly with PT Events: - Unable to receive blood, access lost/pt hard stick - Liver enzymes improving OBJECTIVE: Vital Signs Period Temp Pulse Resp BP Sys/Oliveira Pulse Ox Last 24 Hr 97.7 F-98.5 F 67-83 18-22 100-110/46-63 95 PE Gen: weak appearing Neuro: alert, awake, cn 2-12intact Pulm: distant, + NC CV: s1 s2 rrr no mrg Abd: s nt nd + bs Ext: warm, no le edema Msk: R hip tenderness/ bone tenderness Laboratory Results - last 24 hr 03/27/17 03/29/17 03/30/17 08:45 06:30 08:37 WBC RBC Hgb Hct MCV MCHC RDW Plt Count MPV Neutrophils % Lymphocytes % Monocytes % Eosinophils % Basophils % Retic Count Haptoglobin < 10 L Sodium 141 Potassium 3.8 Chloride 108 H Carbon Dioxide 23 Anion Gap 10 BUN 7 D Creatinine 0.5 L D Creat Clearance w eGFR > 60 Random Glucose 88 Calcium 8.1 L Ferritin 2199.059 H Total Bilirubin 4.6 H D AST 112 H D ALT 220 H D Alkaline Phosphatase 289 H D LD Total 285 H Total Protein 6.6 Albumin 3.4 Blood Type B POSITIVE Antibody Screen Negative Crossmatch See Detail 03/30/17 08:37 WBC 11.1 H RBC 2.41 L Hgb 7.7 L Hct 21.8 L MCV 90.3 MCHC 35.1 RDW 22.8 H Plt Count 457 H MPV 7.3 L Neutrophils % 42.9 D Lymphocytes % 41.7 H D Monocytes % 9.6 Eosinophils % 4.9 H Basophils % 0.9 Retic Count 9.99 H D Haptoglobin Sodium Potassium Chloride Carbon Dioxide Anion Gap BUN Creatinine Creat Clearance w eGFR Random Glucose Calcium Ferritin Total Bilirubin AST ALT Alkaline Phosphatase LD Total Total Protein Albumin Blood Type Antibody Screen Crossmatch Active Medications Generic Name Dose Route Start Last Admin Trade Name Freq PRN Reason Stop Dose Admin Diphenhydramine HCl 12.5 mg 03/28/17 21:13 03/30/17 13:41 Benadryl Injection - IVPB 12.5 mg Q8H PRN Administration DRY SKIN Enoxaparin Sodium 40 mg 03/27/17 10:00 03/30/17 09:26 Lovenox - SQ 40 mg DAILY MAYELA Administration Folic Acid 1 mg 03/27/17 10:00 03/30/17 09:26 Folic Acid - PO 1 mg DAILY MAYELA Administration Hydroxyurea 1,000 mg 03/27/17 10:00 03/30/17 09:26 Hydrea - PO 1,000 mg DAILY MAYELA Administration Sodium Chloride 1,000 mls @ 150 mls/hr 03/28/17 17:15 03/30/17 13:45 Normal Saline - IV 150 mls/hr ASDIR MAYELA Administration Morphine Sulfate 4 mg 03/27/17 10:27 03/30/17 09:32 Morphine Injection - IVPUSH 4 mg Q3H PRN Administration PAIN Multivitamins/Minerals/Vitamin C 1 tab 03/27/17 10:00 03/30/17 09:36 Tab-A-Vit - PO Not Given DAILY MAYELA Imaging: - Liver ultrasound with hepatomegaly and probable mild diffuse fatty infiltration of the liver Microbiology 03/28/17 18:30 Urine Culture - Final Urine - Urine Clean Catch NO GROWTH OBTAINED 03/28/17 21:15 Blood Culture - Preliminary Blood - Peripheral Venous NO GROWTH OBTAINED AFTER 24 HOURS, INCUBATION TO CONTINUE FOR 4 DAYS. 03/28/17 19:20 Blood Culture - Preliminary Blood - Peripheral Venous NO GROWTH OBTAINED AFTER 24 HOURS, INCUBATION TO CONTINUE FOR 4 DAYS. 03/28/17 19:30 Blood Culture - Preliminary Blood - Peripheral Venous NO GROWTH OBTAINED AFTER 24 HOURS, INCUBATION TO CONTINUE FOR 4 DAYS. Assessment: 20 year old female with sickle cell disease (SS type on electrophoresis in 2012), acute chest syndrome 10/20 s/p exchange transfusion, DVT and cholecystectomy admitted with body/bone pain x10 days, back pain, right hip pain, difficulty ambulating. Plan: 1. Sickle cell crisis - Retic count improved - Haptaglobin low - WBC near baseline - Continue IV fluids - Continue folic acid - Continue Hydroxyurea - Continue multivitamin - Continue Morphine q3 - Awaiting port culture - Avoid picc line until r/o infection - Once obtain line EJ vs PIV in IR, give 1unit packed cells 2. Transaminitis - Improving - Abd MRI shows iron deposition of liver and spleen, no hepatic lesions to suggest HCC, no pancreaticobiliary dilation 3. Avascular necrosis of R femoral head - MRI shows small right hip joint effusion, and avascular necrosis - Awaiting ortho input and recs 4. Hx of DVT - Diagnosed in 2016, no longer on anticoagulation - B/l lower extremity doppler negative for DVT 5. Ppx - Lovenox 40mg sq daily - OOB ambulating/PT WBAT Visit type - Emergency Visit Emergency Visit: Yes ED Registration Date: 03/27/17 Care time: The patient presented to the Emergency Department on the above date and was hospitalized for further evaluation of their emergent condition. - New Patient This patient is new to me today: No - Critical Care Critical Care patient: No
[2017-03-30] MEDS ORDERED: PORTA CATH FLUSH 10 ML IVPUSH PRN (16:00)
--- NOTE | 2017-03-30 16:27 | PN ---
GI Progress Note Subjective: GI NOte: Still with abdominal pain but LFTs are dropping. Does not want me to scale down her diet. - Objective Vital Signs: Vital Signs Temperature 98.3 F 03/30/17 15:23 Pulse Rate 70 03/30/17 15:23 Respiratory Rate 18 03/30/17 15:23 Blood Pressure 103/42 03/30/17 15:23 O2 Sat by Pulse Oximetry (%) 95 03/30/17 09:00 CBC,CMP WBC 11.1 K/mm3 (4.0-10.0) H 03/30/17 08:37 RBC 2.41 M/mm3 (3.60-5.2) L 03/30/17 08:37 Hgb 7.7 GM/dL (10.7-15.3) L 03/30/17 08:37 Hct 21.8 % (32.4-45.2) L 03/30/17 08:37 MCV 90.3 fl (80-96) 03/30/17 08:37 MCHC 35.1 g/dl (32.0-36.0) 03/30/17 08:37 RDW 22.8 % (11.6-15.6) H 03/30/17 08:37 Plt Count 457 K/MM3 (134-434) H 03/30/17 08:37 MPV 7.3 fl (7.5-11.1) L 03/30/17 08:37 Neutrophils % 42.9 % (42.8-82.8) D 03/30/17 08:37 Lymphocytes % 41.7 % (8-40) H D 03/30/17 08:37 Monocytes % 9.6 % (3.8-10.2) 03/30/17 08:37 Eosinophils % 4.9 % (0-4.5) H 03/30/17 08:37 Basophils % 0.9 % (0-2.0) 03/30/17 08:37 Band Neutrophils 2.0 % (0-10) D 03/27/17 02:45 Platelet Estimate Slt increased (NORMAL) 03/28/17 21:30 Platelet Comment Few giant plts 03/28/17 21:30 Platelet Comment No clumping noted 03/28/17 21:30 Polychromasia 1+ 03/28/17 21:30 Hypochromic-Microcytic 1+ 03/27/17 08:45 Poikilocytosis 1+ 03/28/17 21:30 Anisocytosis 2+ 03/28/17 21:30 Microcytosis 2+ 03/27/17 08:45 Macrocytosis 1+ 03/27/17 08:45 Sickle Cells 1+ 03/28/17 21:30 Target Cells 1+ 03/28/17 21:30 [place] Bodies Seen 03/28/17 21:30 Retic Count 9.99 % (0.5-1.5) H D 03/30/17 08:37 Haptoglobin < 10 mg/dL (34-200) L 03/29/17 06:30 Sodium 141 mmol/L (136-145) 03/30/17 08:37 Potassium 3.8 mmol/L (3.5-5.1) 03/30/17 08:37 Chloride 108 mmol/L (98-107) H 03/30/17 08:37 Carbon Dioxide 23 mmol/L (21-32) 03/30/17 08:37 Anion Gap 10 (8-16) 03/30/17 08:37 BUN 7 mg/dL (7-18) D 03/30/17 08:37 Creatinine 0.5 mg/dL (0.55-1.02) L D 03/30/17 08:37 Creat Clearance w eGFR > 60 (>60) 03/30/17 08:37 Random Glucose 88 mg/dL (74-106) 03/30/17 08:37 Calcium 8.1 mg/dL (8.5-10.1) L 03/30/17 08:37 Phosphorus 4.1 mg/dL (2.5-4.9) D 03/27/17 08:45 Magnesium 2.0 mg/dL (1.8-2.4) 03/27/17 08:45 Ferritin 2199.059 ng/ml (6.9-282.5) H 03/30/17 08:37 Total Bilirubin 4.6 mg/dL (0.2-1.0) H D 03/30/17 08:37 Direct Bilirubin 2.6 mg/dL (0.0-0.2) H D 03/29/17 06:30 AST 112 U/L (15-37) H D 03/30/17 08:37 ALT 220 U/L (12-78) H D 03/30/17 08:37 Alkaline Phosphatase 289 U/L (45-117) H D 03/30/17 08:37 LD Total 285 U/L (84-246) H 03/30/17 08:37 Total Protein 6.6 g/dl (6.4-8.2) 03/30/17 08:37 Albumin 3.4 g/dl (3.4-5.0) 03/30/17 08:37 Serum , Qual Negative 03/27/17 02:45 Constitutional: Anxious Eyes: Yes: Sclera Icterus ...Auscultate: Yes: Normoactive Bowel Sounds ...Palpate: Yes: Soft, Other (nontender) Labs: CBC, BMP 03/30/17 08:37 03/30/17 08:37 INR, PTT INR 1.20 (0.82-1.09) H 03/29/17 06:30 Fibrinogen 342.0 mg/dL (238-498) 03/29/17 06:30 Laboratory Tests 03/30/17 03/30/17 08:37 08:37 WBC 11.1 H Hgb 7.7 L Total Bilirubin 4.6 H D AST 112 H D ALT 220 H D Alkaline Phosphatase 289 H D LD Total 285 H Assessment/Plan Abdominal pain and elevated LFTs related to sickle cell crisis. Dr Bae will be covering this weekend. Please call him as needed. Case discussed with Dr Lagunas.
[2017-03-30] MEDS ORDERED: ACETAMINOPHEN 325 MG TABLET (FP) PO PRN (16:50)
--- NOTE | 2017-03-30 23:27 | PN ---
Progress Note (short form) - Note Progress Note: patient seen and examined c/o pain, all over worst painc crisis ever per patient pain in the chest, RUQ Last Vital Signs Temp Pulse Resp BP Pulse Ox 98.0 F 72 18 103/50 95 03/31/17 06:00 03/31/17 06:00 03/31/17 06:00 03/31/17 06:00 03/30/17 21:00 Cor: RSR, No murmurs, No gallops Lungs: Clear to P&A Abd: Soft, Normal bowel sounds, No organomegaly Ext:No significant edema Skin: No rashes, Integument intact Abnormal Lab Results 03/27/17 03/30/17 03/31/17 08:45 08:37 08:42 RBC 3.18 L D Hgb 10.2 L D Hct 27.9 L D MCHC 36.5 H RDW 20.3 H D Plt Count 460 H MPV 7.4 L TIBC 202 L Crossmatch See Detail a/p 21 y/o with sickle cell crisis pain crisis abnormal LFTs--? benign cholestasis ? sicle crisis in the liver transfuse 2units PRBCs today PORT accessed by IR iv hydration/pain control/folic acid monitor lfts benadryl for itching incentive spirometry dvt prophylaxis f/u cultures f/u LDH/retic decrease iv fluids AVN of rt. hip--ortho consult will follow
[2017-03-31] MEDS: SODIUM CHLORIDE 1,000 ML IV SCH ×4 (03:37→20:03)
[2017-03-31 08:10] LABS: SERUM IRON 96 ug/dL (27-159); TOTAL IRON BINDING CAPACITY 202 ug/dL (250-450); UIBC 106 ug/dL (131-425)
[2017-03-31 09:08] LABS: BASOPHIL 1.1 % (0-2.0); EOSINOPHIL 3.8 % (0-4.5); MCH 32.1 pg (25.7-33.7); MCHC 36.5 g/dl (32.0-36.0); MEAN CELL VOLUME 87.8 fl (80-96); MEAN PLT VOLUME 7.4 fl (7.5-11.1); NEUTROPHILS 57.4 % (42.8-82.8); PLATELET COUNT 460 K/MM3 (134-434); RDW 20.3 % (11.6-15.6); WHITE BLOOD COUNT 9.7 K/mm3 (4.0-10.0)
[2017-03-31] MEDS ORDERED: PT OWN MED DRAWER 7, Y5N ONE (09:18)
[2017-03-31] MEDS: MULTIVITAMINS (DAILY MVI) TABLET (FP) PO SCH (09:20)
[2017-03-31] MEDS: FOLIC ACID 1 MG TABLET (FP) PO SCH (09:20)
[2017-03-31] MEDS: morphine CARPU-JECT 4 MG/1 ML DISP.SYRIN IVPUSH PRN ×3 (09:21→18:55)
[2017-03-31] MEDS: ENOXAPARIN NA (PORCINE) 40 MG/0.4 ML DISP.SYRIN SQ SCH (09:21)
[2017-03-31] MEDS: HYDROXYUREA 500 MG CAPSULE PO SCH (09:21)
[2017-03-31 11:31] LABS: ALBUMIN 3.6 g/dl (3.4-5.0); ANION GAP 8 (8-16); BILIRUBIN,TOTAL 3.8 mg/dL (0.2-1.0); CALCIUM 8.7 mg/dL (8.5-10.1); CO2 24 mmol/L (21-32); CREATININE 0.5 mg/dL (0.55-1.02); GLUCOSE,RANDOM 86 mg/dL (74-106); SGPT/ALT 183 U/L (12-78); TOT PROT 6.8 g/dl (6.4-8.2)
[2017-03-31 11:39] LABS: ALK PHOS 289 U/L (45-117); SGOT/AST 78 U/L (15-37)
--- NOTE | 2017-03-31 12:34 | PN ---
Physical Exam: SUBJECTIVE: Patient seen and examined. She appears improved today. She still complains of bone pain. She is watching TV and laughing. States her port was placed when she was 12 and has had an attack every 2 weeks to 1 month since then. OBJECTIVE: Vital Signs Period Temp Pulse Resp BP Sys/Oliveira Pulse Ox Last 24 Hr 98.0 F-98.6 F 60-73 18-18 94-120/42-62 95 PE Neuro: alert, awake, cn 2-12intact Pulm: distant, no cough no sob CV: s1 s2 rrr no mrg, RCW port dressing cdi Abd: s nt nd + bs Ext: warm, no le edema Msk: R hip tenderness/ bone tenderness Laboratory Results - last 24 hr 03/27/17 03/30/17 03/31/17 08:45 08:37 08:42 WBC 9.7 RBC 3.18 L D Hgb 10.2 L D Hct 27.9 L D MCV 87.8 MCHC 36.5 H RDW 20.3 H D Plt Count 460 H MPV 7.4 L Neutrophils % 57.4 D Lymphocytes % 29.2 D Monocytes % 8.5 Eosinophils % 3.8 Basophils % 1.1 Sodium Potassium Chloride Carbon Dioxide Anion Gap BUN Creatinine Creat Clearance w eGFR Random Glucose Calcium Iron 96 TIBC 202 L Iron Saturation 48 Total Bilirubin AST ALT Alkaline Phosphatase Total Protein Albumin Blood Type B POSITIVE Antibody Screen Negative Crossmatch See Detail 03/31/17 08:42 WBC RBC Hgb Hct MCV MCHC RDW Plt Count MPV Neutrophils % Lymphocytes % Monocytes % Eosinophils % Basophils % Sodium 142 Potassium 4.4 Chloride 110 H Carbon Dioxide 24 Anion Gap 8 BUN 7 Creatinine 0.5 L Creat Clearance w eGFR > 60 Random Glucose 86 Calcium 8.7 Iron TIBC Iron Saturation Total Bilirubin 3.8 H AST 78 H D ALT 183 H Alkaline Phosphatase 289 H Total Protein 6.8 Albumin 3.6 Blood Type Antibody Screen Crossmatch Active Medications Generic Name Dose Route Start Last Admin Trade Name Freq PRN Reason Stop Dose Admin Acetaminophen 325 mg 03/30/17 16:50 03/30/17 16:57 Tylenol - PO 325 mg Q6H PRN Administration FEVER OR PAIN Diphenhydramine HCl 12.5 mg 03/28/17 21:13 03/31/17 11:49 Benadryl Injection - IVPB 12.5 mg Q8H PRN Administration DRY SKIN Enoxaparin Sodium 40 mg 03/27/17 10:00 03/31/17 09:21 Lovenox - SQ 40 mg DAILY MAYELA Administration Folic Acid 1 mg 03/27/17 10:00 03/31/17 09:20 Folic Acid - PO 1 mg DAILY MAYELA Administration Hydroxyurea 1,000 mg 03/27/17 10:00 03/31/17 09:21 Hydrea - PO 1,000 mg DAILY MAYELA Administration IV Flush 10 ml 03/30/17 16:00 Elvis-Cath Flush IVPUSH PRN PRN FLUSH Sodium Chloride 1,000 mls @ 75 mls/hr 03/31/17 10:47 03/31/17 11:49 Normal Saline - IV 75 mls/hr ASDIR MAYELA Administration Morphine Sulfate 4 mg 03/27/17 10:27 03/31/17 09:21 Morphine Injection - IVPUSH 4 mg Q3H PRN Administration PAIN Multivitamins/Minerals/Vitamin C 1 tab 03/27/17 10:00 03/31/17 09:20 Tab-A-Vit - PO Not Given DAILY MAYELA Imaging: - Abd MRI shows iron deposition of liver and spleen, no hepatic lesions to suggest HCC, no pancreaticobiliary dilation Assessment: 20 year old female with sickle cell disease (SS type on electrophoresis in 2012), acute chest syndrome 10/20 s/p exchange transfusion, DVT and cholecystectomy admitted with body/bone pain x10 days, back pain, right hip pain, difficulty ambulating. Plan: 1. Sickle cell crisis - Transfused 2uprbc 03/30 with appropriate rise - Continue IV fluids 75cc/hr - Continue folic acid - Continue Hydroxyurea - Continue multivitamin - Continue Morphine q3 - Pre giles port cx no growth - Child port re fastened by IR, will need adult port in future 2. Transaminitis - d/t possible hepatic sequestration - Improving, alk phos no change 3. Avascular necrosis of R femoral head - MRI shows small right hip joint effusion, and avascular necrosis - Awaiting ortho input and recs 4. Hx of DVT - Diagnosed in 2015, no longer on anticoagulation - B/l lower extremity doppler negative for DVT 5. Ppx - Lovenox 40mg sq daily - OOB ambulating/PT WBAT Visit type - Emergency Visit Emergency Visit: Yes ED Registration Date: 03/27/17 Care time: The patient presented to the Emergency Department on the above date and was hospitalized for further evaluation of their emergent condition. - New Patient This patient is new to me today: No - Critical Care Critical Care patient: No
--- NOTE | 2017-03-31 15:08 | PN ---
Progress Note (short form) - Note Progress Note: Pt comf in bed states pain with any ambulation PE AFVSS RLE mild pain with ROM hip no pain at knee, ankle calves soft NT NVID MRI images and report reviewed. 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 AP R Hip avascular necrosis -I had an extended discussion with Cuca about her hip problem -we reviewed what AVN is and how it is related to sickle cell disease -discussed that this can lead to early degeneration of the hip joint and need for hip replacement -that being said, too early for surgery at this point -discussed that the younger she is at the time of hip replacement, the earlier she will need revision -recommend PT, TTWB to minimize stress on the hip joint -given that there is already collapse, generally core decompression surgery is not helpful -may follow up in the office as an outpatient
[2017-03-31 16:15] LABS: PARV B19 IGG 4.3 index (0.0-0.8); PARV B19 IGM 0.2 index (0.0-0.8)
--- NOTE | 2017-03-31 21:29 | PN ---
Progress Note (short form) - Note Progress Note: Patient seen in follow up. No events overnight. Ongoing diffuse pain - predominantly knees. Red cells 2 units yesterday. Meds reviewed. Acetaminophen (Tylenol -) 325 mg PO Q6H PRN PRN Reason: FEVER OR PAIN Last Admin: 03/30/17 16:57 Dose: 325 mg Diphenhydramine HCl (Benadryl Injection -) 12.5 mg IVPB Q8H PRN PRN Reason: DRY SKIN Last Admin: 03/31/17 20:00 Dose: 12.5 mg Enoxaparin Sodium (Lovenox -) 40 mg SQ DAILY [facility] Last Admin: 03/31/17 09:21 Dose: 40 mg Folic Acid (Folic Acid -) 1 mg PO DAILY [facility] Last Admin: 03/31/17 09:20 Dose: 1 mg Hydroxyurea (Hydrea -) 1,000 mg PO DAILY [facility] Last Admin: 03/31/17 09:21 Dose: 1,000 mg IV Flush (Elvis-Cath Flush) 10 ml IVPUSH PRN PRN PRN Reason: FLUSH Sodium Chloride (Normal Saline -) 1,000 mls @ 75 mls/hr IV ASDIR [facility] Last Admin: 03/31/17 20:03 Dose: 75 mls/hr Morphine Sulfate (Morphine Injection -) 4 mg IVPUSH Q3H PRN PRN Reason: PAIN Last Admin: 03/31/17 18:55 Dose: 4 mg Multivitamins/Minerals/Vitamin C (Tab-A-Vit -) 1 tab PO DAILY [facility] Last Admin: 03/31/17 09:20 Dose: Not Given On examination: Last Vital Signs Temp Pulse Resp BP Pulse Ox 98.2 F 63 20 104/67 95 03/31/17 14:37 03/31/17 14:37 03/31/17 14:37 03/31/17 14:37 03/30/17 21:00 General: In no acute distress. Oropharyngeal: No signs mucosal hemorrhage, no mucosal lesions. Extremities: Mild pallor and icterus, no pedal edema. Chest:good air entry bilaterally, clear. Abdomen: Soft, not distended, no palpable organomegaly, no masses. Neuro: Alert and oriented, non-focal. CVS: Normal sinus rhythm, S1, S2, no gallop or murmur. Skin: No rash. Labs reviewed: CBC, BMP 03/31/17 08:42 03/31/17 08:42 Assessment: SSD with crisis. Hepatopathy previously with elevated ALP and transaminases - now resolving. (S/ p cholecystectomy) S/P 2 units RBC yesterday. Continue present management - analagesia/hydration. Monitor liver enzymes.
[2017-04-01] MEDS: morphine CARPU-JECT 4 MG/1 ML DISP.SYRIN IVPUSH PRN ×6 (00:25→21:49)
[2017-04-01] MEDS: FOLIC ACID 1 MG TABLET (FP) PO SCH (09:22)
[2017-04-01] MEDS: HYDROXYUREA 500 MG CAPSULE PO SCH (09:22)
[2017-04-01] MEDS: ENOXAPARIN NA (PORCINE) 40 MG/0.4 ML DISP.SYRIN SQ SCH (09:22)
[2017-04-01] MEDS: MULTIVITAMINS (DAILY MVI) TABLET (FP) PO SCH (09:23)
[2017-04-01 09:25] LABS: BASOPHIL 1.2 % (0-2.0); EOSINOPHIL 4.3 % (0-4.5); MCH 31.5 pg (25.7-33.7); MCHC 35.6 g/dl (32.0-36.0); MEAN CELL VOLUME 88.4 fl (80-96); MEAN PLT VOLUME 7.1 fl (7.5-11.1); NEUTROPHILS 45.8 % (42.8-82.8); PLATELET COUNT 500 K/MM3 (134-434); RDW 20.5 % (11.6-15.6); WHITE BLOOD COUNT 11.8 K/mm3 (4.0-10.0)
[2017-04-01] MEDS: SODIUM CHLORIDE 1,000 ML IV SCH ×2 (10:26→23:28)
[2017-04-01 10:48] LABS: ANISOCYTOSIS 2+; HYPOCHROMIA FEW; PLATELET ESTIMATE INCREASED (NORMAL); POIKILOCYTOSIS 1+; POLYCHROMASIA FEW
[2017-04-01 10:49] LABS: MICROCYTOSIS 1+; TARGET CELLS 1+
--- NOTE | 2017-04-01 14:02 | PN ---
Progress Note (short form) - Note Progress Note: Patient seen in follow up. No events overnight. Ongoing diffuse pain - predominantly knees - but improved since yesterday. Meds reviewed. Current Medications Generic Name Dose Route Start Last Admin Trade Name Freq PRN Reason Stop Dose Admin Acetaminophen 325 mg 03/30/17 16:50 03/30/17 16:57 Tylenol - PO 325 mg Q6H PRN Administration FEVER OR PAIN Diphenhydramine HCl 12.5 mg 03/28/17 21:13 04/01/17 13:01 Benadryl Injection - IVPB 12.5 mg Q8H PRN Administration DRY SKIN Enoxaparin Sodium 40 mg 03/27/17 10:00 04/01/17 09:22 Lovenox - SQ 40 mg DAILY MAYELA Administration Folic Acid 1 mg 03/27/17 10:00 04/01/17 09:22 Folic Acid - PO 1 mg DAILY MAYELA Administration Hydroxyurea 1,000 mg 03/27/17 10:00 04/01/17 09:22 Hydrea - PO 1,000 mg DAILY MAYELA Administration IV Flush 10 ml 03/30/17 16:00 Elvis-Cath Flush IVPUSH PRN PRN FLUSH Sodium Chloride 1,000 mls @ 75 mls/hr 03/31/17 10:47 04/01/17 10:26 Normal Saline - IV 75 mls/hr ASDIR MAYELA Administration Morphine Sulfate 4 mg 03/27/17 10:27 04/01/17 12:23 Morphine Injection - IVPUSH 4 mg Q3H PRN Administration PAIN Multivitamins/Minerals/Vitamin C 1 tab 03/27/17 10:00 04/01/17 09:23 Tab-A-Vit - PO Not Given DAILY MAYELA On examination: Last Vital Signs Temp Pulse Resp BP Pulse Ox 97.7 F 92 H 16 134/72 95 04/01/17 10:00 04/01/17 10:00 04/01/17 10:00 04/01/17 10:00 03/30/17 21:00 General: In no acute distress. Oropharyngeal: No signs mucosal hemorrhage, no mucosal lesions. Extremities: Mild pallor and icterus, no pedal edema. Chest:good air entry bilaterally, clear. Abdomen: Soft, not distended, no palpable organomegaly, no masses. Neuro: Alert and oriented, non-focal. CVS: Normal sinus rhythm, S1, S2, no gallop or murmur. Skin: No rash. Labs reviewed: CBC, BMP 04/01/17 08:40 03/31/17 08:42 Assessment: SSD with crisis. Hepatopathy previously with elevated ALP and transaminases - now resolving. (S/ p cholecystectomy - remote) S/P 2 units RBC 2 days ago - Hb stable - and retic count coming down. Continue present management - analagesia/hydration. Monitor liver enzymes.
--- NOTE | 2017-04-01 15:57 | PN ---
Physical Exam: SUBJECTIVE: Patient seen and examined. She states her pain is mostly her chest, hip and knees. Although she is breathing with more east today. OBJECTIVE: Vital Signs Period Temp Pulse Resp BP Sys/Oliveira Pulse Ox Last 24 Hr 97.7 F-98.5 F 58-92 16-20 102-134/65-72 PE Neuro: alert, awake, cn 2-12intact Pulm: CTAB CV: s1 s2 rrr no mrg, RCW port dressing cdi Abd: s nt nd + bs Ext: warm, no le edema Msk: knee tenderness Laboratory Results - last 24 hr 03/30/17 04/01/17 08:37 08:40 WBC 11.8 H RBC 3.33 L Hgb 10.5 L Hct 29.4 L MCV 88.4 MCHC 35.6 RDW 20.5 H Plt Count 500 H MPV 7.1 L Neutrophils % 45.8 D Lymphocytes % 42.5 H D Monocytes % 6.2 Eosinophils % 4.3 Basophils % 1.2 Platelet Estimate Increased Platelet Comment No clumping noted Polychromasia Few Hypochromic-Microcytic Few Poikilocytosis 1+ Anisocytosis 2+ Microcytosis 1+ Sickle Cells 2+ Target Cells 1+ Retic Count 7.05 H D Parvovirus B19 IgG Ab 4.3 H Parvovirus B19 IgM Ab 0.2 Active Medications Generic Name Dose Route Start Last Admin Trade Name Freq PRN Reason Stop Dose Admin Acetaminophen 325 mg 03/30/17 16:50 03/30/17 16:57 Tylenol - PO 325 mg Q6H PRN Administration FEVER OR PAIN Diphenhydramine HCl 12.5 mg 03/28/17 21:13 04/01/17 13:01 Benadryl Injection - IVPB 12.5 mg Q8H PRN Administration DRY SKIN Enoxaparin Sodium 40 mg 03/27/17 10:00 04/01/17 09:22 Lovenox - SQ 40 mg DAILY MAYELA Administration Folic Acid 1 mg 03/27/17 10:00 04/01/17 09:22 Folic Acid - PO 1 mg DAILY MAYELA Administration Hydroxyurea 1,000 mg 03/27/17 10:00 04/01/17 09:22 Hydrea - PO 1,000 mg DAILY MAYELA Administration IV Flush 10 ml 03/30/17 16:00 Elvis-Cath Flush IVPUSH PRN PRN FLUSH Sodium Chloride 1,000 mls @ 75 mls/hr 03/31/17 10:47 04/01/17 10:26 Normal Saline - IV 75 mls/hr ASDIR MAYELA Administration Morphine Sulfate 3 mg 04/01/17 15:09 Morphine Injection - IVPUSH Q3H PRN PAIN Multivitamins/Minerals/Vitamin C 1 tab 03/27/17 10:00 04/01/17 09:23 Tab-A-Vit - PO Not Given DAILY MAYELA Microbiology 03/29/17 22:14 Blood Culture - Preliminary Blood - Elvis Cath NO GROWTH OBTAINED AFTER 48 HOURS, INCUBATION TO CONTINUE FOR 3 DAYS. 03/28/17 21:15 Blood Culture - Preliminary Blood - Peripheral Venous NO GROWTH OBTAINED AFTER 72 HOURS, INCUBATION TO CONTINUE FOR 2 DAYS. 03/28/17 19:20 Blood Culture - Preliminary Blood - Peripheral Venous NO GROWTH OBTAINED AFTER 72 HOURS, INCUBATION TO CONTINUE FOR 2 DAYS. 03/28/17 19:30 Blood Culture - Preliminary Blood - Peripheral Venous NO GROWTH OBTAINED AFTER 72 HOURS, INCUBATION TO CONTINUE FOR 2 DAYS. 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 Assessment: 20 year old female with sickle cell disease (SS type on electrophoresis in 2012), acute chest syndrome 10/20 s/p exchange transfusion, DVT and cholecystectomy admitted with body/bone pain x10 days, back pain, right hip pain, difficulty ambulating. Plan: 1. Sickle cell crisis - Hgb stable - 2uprbc 03/30 - Continue IVF 75cc/hr - Continue folic acid - Continue Hydroxyurea - Continue multivitamin - Decrease Morphine 3mg q3 - Child port re fastened by IR, will need adult port in future 2. Transaminitis - Likely d/t hepatic sequestration - Continues to improve, alk phos same - Will trend 3. Acute on chroinic AVN of R femoral head - Per Ortho WBAT, crutches, too early for surgery at this time - Follow up as outpt, if in 2 months no improvement consider replacement 4. Hx of DVT - Diagnosed in 2015, no longer on anticoagulation - B/l lower extremity doppler negative for DVT 5. Ppx - Lovenox 40mg sq daily - OOB ambulating/PT WBAT Visit type - Emergency Visit Emergency Visit: Yes ED Registration Date: 03/27/17 Care time: The patient presented to the Emergency Department on the above date and was hospitalized for further evaluation of their emergent condition. - New Patient This patient is new to me today: No - Critical Care Critical Care patient: No
[2017-04-02] MEDS: morphine CARPU-JECT 4 MG/1 ML DISP.SYRIN IVPUSH PRN ×5 (05:42→23:50)
[2017-04-02 09:17] LABS: EOSINOPHIL 5.2 % (0-4.5); MCH 31.6 pg (25.7-33.7); MCHC 35.2 g/dl (32.0-36.0); MEAN CELL VOLUME 89.9 fl (80-96); MEAN PLT VOLUME 7.8 fl (7.5-11.1); NEUTROPHILS 50.9 % (42.8-82.8); PLATELET COUNT 512 K/MM3 (134-434); RDW 20.1 % (11.6-15.6); WHITE BLOOD COUNT 12.8 K/mm3 (4.0-10.0)
[2017-04-02 09:21] LABS: ALBUMIN 3.8 g/dl (3.4-5.0); ALK PHOS 235 U/L (45-117); ANION GAP 8 (8-16); BILIRUBIN,TOTAL 2.9 mg/dL (0.2-1.0); CALCIUM 8.8 mg/dL (8.5-10.1); CO2 26 mmol/L (21-32); CREATININE 0.5 mg/dL (0.55-1.02); GLUCOSE,RANDOM 94 mg/dL (74-106); SGOT/AST 49 U/L (15-37); SGPT/ALT 117 U/L (12-78)
[2017-04-02] MEDS: MULTIVITAMINS (DAILY MVI) TABLET (FP) PO SCH (10:05)
[2017-04-02] MEDS: FOLIC ACID 1 MG TABLET (FP) PO SCH (10:05)
[2017-04-02] MEDS: HYDROXYUREA 500 MG CAPSULE PO SCH (10:05)
[2017-04-02] MEDS: ENOXAPARIN NA (PORCINE) 40 MG/0.4 ML DISP.SYRIN SQ SCH (10:06)
[2017-04-02] MEDS: SODIUM CHLORIDE 1,000 ML IV SCH ×3 (10:18→22:14)
--- NOTE | 2017-04-02 15:20 | PN ---
Physical Exam: SUBJECTIVE: Patient seen and examined. She is smiling today. She says she is finally feeling better. It took her some time to move this AM d/t leg and hip pain, but she is wanting to walk with crutches and go home. Denies chest pain OBJECTIVE: Vital Signs Period Temp Pulse Resp BP Sys/Oliveira Pulse Ox Last 24 Hr 98.0 F-98.4 F 60-82 18-18 105-112/60-77 95 PE Neuro: alert, awake, cn 2-12intact Pulm: CTAB CV: s1 s2 rrr no mrg, RCW port dressing cdi Abd: s nt nd + bs Ext: warm, no le edema Msk: knee tenderness, R hip tenderness Laboratory Results - last 24 hr 04/02/17 04/02/17 08:38 08:38 WBC 12.8 H RBC 3.23 L Hgb 10.2 L Hct 29.0 L MCV 89.9 MCHC 35.2 RDW 20.1 H Plt Count 512 H MPV 7.8 Neutrophils % 50.9 Lymphocytes % 36.4 Monocytes % 6.5 Eosinophils % 5.2 H Basophils % 1.0 Sodium 140 Potassium 4.0 Chloride 106 Carbon Dioxide 26 Anion Gap 8 BUN 7 Creatinine 0.5 L Creat Clearance w eGFR > 60 Random Glucose 94 Calcium 8.8 Total Bilirubin 2.9 H D AST 49 H D ALT 117 H D Alkaline Phosphatase 235 H Total Protein 7.0 Albumin 3.8 Active Medications Generic Name Dose Route Start Last Admin Trade Name Freq PRN Reason Stop Dose Admin Acetaminophen 325 mg 03/30/17 16:50 03/30/17 16:57 Tylenol - PO 325 mg Q6H PRN Administration FEVER OR PAIN Diphenhydramine HCl 12.5 mg 03/28/17 21:13 04/02/17 08:55 Benadryl Injection - IVPB 12.5 mg Q8H PRN Administration DRY SKIN Enoxaparin Sodium 40 mg 03/27/17 10:00 04/02/17 10:06 Lovenox - SQ 40 mg DAILY MAYELA Administration Folic Acid 1 mg 03/27/17 10:00 04/02/17 10:05 Folic Acid - PO 1 mg DAILY MAYELA Administration Hydroxyurea 1,000 mg 03/27/17 10:00 04/02/17 10:05 Hydrea - PO 1,000 mg DAILY MAYELA Administration IV Flush 10 ml 03/30/17 16:00 Elvis-Cath Flush IVPUSH PRN PRN FLUSH Sodium Chloride 1,000 mls @ 75 mls/hr 03/31/17 10:47 04/02/17 10:18 Normal Saline - IV 75 mls/hr ASDIR AMYELA Administration Morphine Sulfate 3 mg 04/01/17 15:09 04/02/17 13:28 Morphine Injection - IVPUSH 3 mg Q3H PRN Administration PAIN Multivitamins/Minerals/Vitamin C 1 tab 03/27/17 10:00 04/02/17 10:05 Tab-A-Vit - PO Not Given DAILY MAYELA Imaging: - Abd MRI shows iron deposition of liver and spleen, no hepatic lesions to suggest HCC, no pancreaticobiliary dilation - R hip MRI: 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 Assessment: 20 year old female with sickle cell disease (SS type on electrophoresis in 2012), acute chest syndrome 10/20 s/p exchange transfusion, DVT and cholecystectomy admitted with body/bone pain x10 days, back pain, right hip pain, difficulty ambulating. Plan: 1. Sickle cell crisis - Continue IVF 75cc/hr - Continue folic acid - Continue Hydroxyurea - Continue multivitamin - Morphine 3mg q3 - 2uprbc 03/30 - Hgb stable - Per Dr. Lemon, pt to follow up at [facility] with MD who placed child port 2. Transaminitis - Likely d/t hepatic sequestration - Resolving 3. 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 Hx of DVT in 2016 - Not on home AC, no DVT here 5. Ppx - Lovenox 40mg sq daily - OOB ambulating/PT WBAT Dispo: - Pending PT tomorrow, hopeful for DC home Visit type - Emergency Visit Emergency Visit: Yes ED Registration Date: 03/27/17 Care time: The patient presented to the Emergency Department on the above date and was hospitalized for further evaluation of their emergent condition. - New Patient This patient is new to me today: No - Critical Care Critical Care patient: No
--- NOTE | 2017-04-02 17:57 | PN ---
Progress Note (short form) - Note Progress Note: patient seen and examined feels better anxious to go home Last Vital Signs Temp Pulse Resp BP Pulse Ox 98.4 F 60 18 105/60 95 04/02/17 10:00 04/02/17 10:00 04/02/17 10:00 04/02/17 10:00 04/02/17 09:00 Cor: RSR, No murmurs, No gallops Lungs: Clear to P&A Abd: Soft, Normal bowel sounds, No organomegaly Ext:No significant edema Skin: No rashes, Integument intact Abnormal Lab Results 03/27/17 04/02/17 04/02/17 08:45 08:38 08:38 WBC 12.8 H RBC 3.23 L Hgb 10.2 L Hct 29.0 L RDW 20.1 H Plt Count 512 H Eosinophils % 5.2 H Creatinine 0.5 L Total Bilirubin 2.9 H D AST 49 H D ALT 117 H D Alkaline Phosphatase 235 H Crossmatch See Detail Home Medication List Medication Instructions Recorded Confirmed Type Hydroxyurea [Hydrea] 1,000 mg PO DAILY 03/13/16 03/27/17 History Active Medications Generic Name Dose Route Start Last Admin Trade Name Freq PRN Reason Stop Dose Admin Acetaminophen 325 mg 03/30/17 16:50 03/30/17 16:57 Tylenol - PO 325 mg Q6H PRN Administration FEVER OR PAIN Diphenhydramine HCl 12.5 mg 03/28/17 21:13 04/02/17 08:55 Benadryl Injection - IVPB 12.5 mg Q8H PRN Administration DRY SKIN Enoxaparin Sodium 40 mg 03/27/17 10:00 04/02/17 10:06 Lovenox - SQ 40 mg DAILY MAYELA Administration Folic Acid 1 mg 03/27/17 10:00 04/02/17 10:05 Folic Acid - PO 1 mg DAILY MAYELA Administration Hydroxyurea 1,000 mg 03/27/17 10:00 04/02/17 10:05 Hydrea - PO 1,000 mg DAILY MAYELA Administration IV Flush 10 ml 03/30/17 16:00 Elvis-Cath Flush IVPUSH PRN PRN FLUSH Sodium Chloride 1,000 mls @ 75 mls/hr 03/31/17 10:47 04/02/17 10:35 Normal Saline - IV Not Given ASDIR MAYELA Morphine Sulfate 3 mg 04/01/17 15:09 04/02/17 17:03 Morphine Injection - IVPUSH 3 mg Q3H PRN Administration PAIN Multivitamins/Minerals/Vitamin C 1 tab 03/27/17 10:00 04/02/17 10:05 Tab-A-Vit - PO Not Given DAILY MAYELA a/p 21 y/o with sickle cell crisis pain crisis abnormal LFTs--? cholestasis s/p PRBCs 03/30 iv hydration/pain control/folic acid monitor lfts benadryl for iytching incentive spirometry dvt prophylaxis AVN of rt. hip--pain control/crutches/ortho f/u d/c planning out patient close f/u with primary camera mechanic Dr. Crow
[2017-04-03] MEDS: morphine CARPU-JECT 4 MG/1 ML DISP.SYRIN IVPUSH PRN ×2 (05:04→10:15)
[2017-04-03] MEDS: MULTIVITAMINS (DAILY MVI) TABLET (FP) PO SCH ×2 (10:17→10:31)
[2017-04-03] MEDS: FOLIC ACID 1 MG TABLET (FP) PO SCH (10:17)
[2017-04-03] MEDS: HYDROXYUREA 500 MG CAPSULE PO SCH (10:17)
[2017-04-03] MEDS: ENOXAPARIN NA (PORCINE) 40 MG/0.4 ML DISP.SYRIN SQ SCH (10:18)
[2017-04-03] MEDS: SODIUM CHLORIDE 1,000 ML IV SCH (10:50)
--- NOTE | 2017-04-03 14:43 | DS ---
Physical Exam: SUBJECTIVE: Patient seen and examined. She is feeling better today. She is ready to go home, pain tolerable. OBJECTIVE: Vital Signs Period Temp Pulse Resp BP Sys/Oliveira Pulse Ox Last 24 Hr 97.6 F-98.5 F 57-61 18-20 113-114/55-67 96 PE Neuro: alert, awake, cn 2-12intact Pulm: CTAB CV: s1 s2 rrr no mrg, RCW port dressing cdi Abd: s nt nd + bs Ext: warm, no le edema Msk: knee tenderness, R hip tenderness - improved Laboratory Results - last 24 hr 03/27/17 08:45 Blood Type B POSITIVE Antibody Screen Negative Crossmatch See Detail HOSPITAL COURSE: Date of Admission:03/27/17 Date of Discharge: 04/03/17 Minutes to complete discharge: 35 Discharge Summary Reason For Visit: SICKLE CELL CRISIS SICKLE CELL PAIN Current Active Problems Abnormal liver function tests (Acute) Avascular necrosis of right femoral head (Acute) Sickle cell crisis (Acute) Sickle cell pain crisis (Acute) Hospital Course: Initial Hospital Course: Briefly, this 20 year old female with PMH of sickle cell disease, multiple crises, acute chest syndrome 10/20 s/p exchange transfusion through port, presented with sickle cell crisis with diffuse bone pain. Reported diffuse, worsening body/bone pain x 10 days, flank pain, abd pain, escalated to the point where its it too painful to walk. 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 Subsequent Hospital Course/Progress Note/Discharge Summary by a/p: Assessment: 20 year old female with sickle cell disease (SS type on electrophoresis in 2012), acute chest syndrome 10/20 s/p exchange transfusion, DVT and cholecystectomy admitted with body/bone pain x10 days, back pain, right hip pain, difficulty ambulating. Plan: 1. Sickle cell crisis - Received continues fluids - Continue folic acid - Continue Hydroxyurea - Continue multivitamin - Morphine 3mg q3 - 2uprbc 03/30 - Hgb stable on discharge - Per Dr. Lemon, pt to follow up at [facility] with who placed child port, pt aware, Dr. Crow does her port care - Follow up this Friday 04/[address] Crow 2. Transaminitis - Likely d/t hepatic sequestration - Resolving 3. 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 Hx of DVT in 2016 - Not on home AC, no DVT here Dispo: - Home with family, above meds, and follow up - Pt aware and agree to above plan Condition: Fair - Instructions Diet, Activity, Other Instructions: Please return to the ED for any new, persistent, or worsening symptoms. Follow up with your engineering technical specialist this Sunday as scheduled Make sure he assess your port and flushes it as needed and gives you a pain management referral You will also need to discuss changing it to an adult port due to the fact it is not fastened to the chest wall, as discussed by Dr. Oconnor in IR The referral information for Ortho Dr. Harevy is enclosed however due to your sickle cell disease it will be better to have it done at at [facility]. Continue medications as directed and regularly Continue ambulating with crutches Referrals: Murphy Mares MD [Staff Physician] - Phu Crow MD [Primary Care Provider] - - Home Medications Comprehensive Discharge Medication List: Ambulatory Orders Hydroxyurea [Hydrea] 1,000 mg PO DAILY 03/13/16 Multivitamins [Multivit ([facility])] 1 tab PO DAILY #30 tab 09/02/16 Folic Acid - 1 mg PO DAILY tablet 10/11/16 Gabapentin [Neurontin -] 600 mg PO Q6HPO 30 Days 10/11/16 Oxycodone HCl 10 mg PO BID PRN #20 tablet MDD 2 04/03/17 This patient is new to me today: No Emergency Visit: Yes ED Registration Date: 03/27/17 Care time: The patient presented to the Emergency Department on the above date and was hospitalized for further evaluation of their emergent condition. Critical Care patient: No - Discharge Referral Referred to [facility] Med [facility].: No
[2017-04-03 19:57] VITALS: BP 115/61; PULSE 69; TEMP 98.2
== END 2017-04-03 16:32 | disposition home or self-care (01) | DRG 662 ==
LOC: JER 01:25 → JERBED 03:29 → J5S 09:54
PROVIDERS: ADMIT Internal Medicine; ATTEND Nurse Practitioner Acute Care
PROC: 30233N1 Transfusion of Nonautologous Red Blood Cells into Peripheral Vein, Percutaneous Approach (ICD-10-PCS; principal; 2017-03-30)
PROC: B518YZA Fluoroscopy of Superior Vena Cava using Other Contrast, Guidance (ICD-10-PCS; 2017-03-30)
DX: D57.00 Hb-SS disease with crisis, unspecified (principal); R74.0 Nonspecific elevation of levels of transaminase and lactic acid dehydrogenase [LDH]; M87.051 Idiopathic aseptic necrosis of right femur; R79.89 Other specified abnormal findings of blood chemistry; D72.829 Elevated white blood cell count, unspecified; K83.1 Obstruction of bile duct; E83.111 Hemochromatosis due to repeated red blood cell transfusions; R16.2 Hepatomegaly with splenomegaly, not elsewhere classified
CPT/HCPCS: 36415; 36430; 36598; 71010-TC; 73502-TC-RT; 73721-RT-TC; 74183-TC; 76705-TC; 80048; 80053; 80074; 80076; 81003; 82248; 82728; 83010; 83540; 83550; 83615; 83735; 84100; 84703; 85025; 85044; 85384; 85610; 85730; 86747; 86850; 86900; 86901; 86922; 87040; 87086; 93970-TC; 94010; 97116-GP; 97161-GP; 99282-25; A9576; J8999; P9038; P9058

== ENCOUNTER 2017-11-12 09:17 | Inpatient (IN) | payer OTHER ==
[2017-11-12] MEDS ORDERED: morphine SULFATE 4 MG/ML VIAL IVPUSH ONE (09:33)
--- NOTE | 2017-11-12 09:37 | PDOC ---
History of Present Illness - General History Source: Patient Exam Limitations: No Limitations - History of Present Illness Initial Comments: 11/12/17 10:15 The patient is a 22 year old female, with a significant past medical history of Sickle Cell Disease, DVT (on Lovenox), AVN of R femoral head who presents to the emergency department for sickle cell crisis. Patient reports diffuse acute pain in her bones, 10/10 in severity which began last night. Patient reports pain is exacerbated with movement and has worsened this morning. Patient also endorses sharp, midsternal chest pain, 10/10 in severity with no associated symptoms. Patient has been compliant with multivitamins. Patient notes last sickle cell crisis in September 2017. Patient denies headache or dizziness. Patient denies fever, chills, abdominal pain, nausea, vomit, diarrhea or constipation. Patient denies dysuria, frequency , urgency or hematuria. Patient denies sick contacts or recent travel. Allergies: ceftriaxone, ceftriaxone sodium, hydromorphone HCl, penicillins Past surgical history: Cholecystectomy Social history: No alcohol, tobacco, or drug use reported. PCP: Dr. Phu Crow <Shannan Lowery - Last Filed: 11/12/17 10:47> - General History Source: Patient Exam Limitations: No Limitations <Anant Aguiar - Last Filed: 11/12/17 11:54> - General Stated Complaint: SICKLE CELL CRISI Time Seen by Provider: 11/12/17 09:25 Past History <Shannan Lowery - Last Filed: 11/12/17 10:47> - Past Medical History Anemia: Yes (sickle cell) Asthma: No Cancer: No Cardiac Disorders: No CVA: No COPD: No Dementia: No Diabetes: No Dialysis: No GI Disorders: No Disorders: No HTN: No Hypercholesterolemia: No Kidney Stones: No Liver Disease: No Seizures: No Thyroid Disease: No - Surgical History Abdominal Surgery: No Appendectomy: No Cardiac Surgery: No Cholecystectomy: Yes Lung Surgery: No Neurologic Surgery: No - Reproductive History Spontaneous : 2 - Immunization History Immunization Up to Date: Yes - Suicide/Smoking/Psychosocial Hx Smoking Status: No Smoking History: Never smoked Years of Tobacco Use: 0 Have you smoked in the past 12 months: Yes Number of Cigarettes Smoked Daily: 10 Hx Alcohol Use: No Drug/Substance Use Hx: Yes Substance Use Type: None Hx Substance Use Treatment: No <Anant Aguiar - Last Filed: 11/12/17 11:54> - Past Medical History Allergies/Adverse Reactions: Allergies Allergy/AdvReac Type Severity Reaction Status Date / Time ceftriaxone Allergy Verified 11/12/17 09:41 ceftriaxone sodium Allergy rash Verified 11/12/17 09:41 [From Rocephin] redness hydromorphone HCl Allergy Rash Verified 11/12/17 09:41 [From Dilaudid] Penicillins Allergy Rash Verified 11/12/17 09:41 Home Medications: Ambulatory Orders Hydroxyurea [Hydrea] 1,000 mg PO DAILY 03/13/16 Gabapentin [Neurontin -] 600 mg PO Q6HPO 30 Days capsule 10/11/16 Oxycodone HCl 10 mg PO BID PRN #20 tablet MDD 2 04/03/17 Aspirin [ASA -] 81 mg PO DAILY 11/12/17 Cyclobenzaprine HCl 10 mg PO QID 11/12/17 Enoxaparin Sodium [Lovenox] 40 mg SQ BID 11/12/17 Review of Systems - Review of Systems Able to Perform ROS?: Yes Comments:: 11/12/17 10:15 GENERAL/CONSTITUTIONAL: No fever or chills. +Diffuse pain. HEAD, EYES, EARS, NOSE AND THROAT: No change in vision. No ear pain or discharge. No sore throat. CARDIOVASCULAR: No chest pain or shortness of breath. RESPIRATORY: No cough, wheezing, or hemoptysis. GASTROINTESTINAL: No nausea, vomiting, diarrhea or constipation. GENITOURINARY: No dysuria, frequency, or change in urination. MUSCULOSKELETAL: No joint or muscle swelling or pain. No neck or back pain. SKIN: No rash NEUROLOGIC: No headache, vertigo, loss of consciousness, or change in strength/ sensation. ENDOCRINE: No increased thirst. No abnormal weight change. HEMATOLOGIC/LYMPHATIC: No anemia, easy bleeding, or history of blood clots. ALLERGIC/IMMUNOLOGIC: No hives or skin allergy. <Shannan Lowery - Last Filed: 11/12/17 10:47> *Physical Exam - Vital Signs Last Vital Signs Temp Pulse Resp BP Pulse Ox 97.8 F 86 22 107/57 100 11/12/17 09:41 11/12/17 09:41 11/12/17 09:41 11/12/17 09:41 11/12/17 09:41 - Physical Exam Comments: 11/12/17 10:15 GENERAL: Awake, alert, and fully oriented, in no acute distress HEAD: No signs of trauma EYES: PERRLA, EOMI, sclera anicteric, conjunctiva clear ENT: Auricles normal inspection, hearing grossly normal, nares patent, oropharynx clear without exudates. Moist mucosa NECK: Normal ROM, supple, no lymphadenopathy, JVD, or masses LUNGS: Breath sounds equal, clear to auscultation bilaterally. No wheezes, and no crackles HEART: Regular rate and rhythm, normal S1 and S2, no murmurs, rubs or gallops ABDOMEN: Soft, nontender, normoactive bowel sounds. No guarding, no rebound. No masses EXTREMITIES: Normal range of motion, no edema. No clubbing or cyanosis. No cords, erythema, or tenderness NEUROLOGICAL: Cranial nerves II through XII intact. 5/5 strength in upper and lower extremities. No pronator drift. Sensation intact. No dysmetria. Rapid alternating movements intact. Heel to fiore intact. Normal speech, normal gait SKIN: Warm, Dry, normal turgor, no rashes or lesions noted. <Shannan Lowery - Last Filed: 11/12/17 10:47> Heart Score/ECG Review #1 ECG reviewed & interpreted by me at: 10:50 11/12/17 10:57 NSR 84, T wave flat III, avf, no std/dann, normal axis, normal intervals, QTC 475 msec <Anant Aguiar - Last Filed: 11/12/17 11:54> ED Treatment Course - LABORATORY CBC & Chemistry Diagram: 11/12/17 09:44 11/12/17 09:44 - Medications Given in the ED: ED Medications Discontinued Medications Generic Name Dose Route Start Last Admin Trade Name Freq PRN Reason Stop Dose Admin Diphenhydramine HCl 25 mg 11/12/17 09:50 11/12/17 10:00 Benadryl Injection - IVPB 11/12/17 09:51 25 mg ONCE ONE Administration Morphine Sulfate 4 mg 11/12/17 09:33 11/12/17 10:00 Morphine Sulfate IVPUSH 11/12/17 09:34 4 mg ONCE ONE Administration <Shannan Lowery - Last Filed: 11/12/17 10:47> - LABORATORY CBC & Chemistry Diagram: 11/12/17 09:44 11/12/17 09:44 - RADIOLOGY Radiology Studies Ordered: Category Date Time Status CHEST X-RAY PORTABLE* [RAD] Stat Radiology 11/12/17 09:33 Ordered <Anant Aguiar - Last Filed: 11/12/17 11:54> Medical Decision Making - Medical Decision Making 11/12/17 10:01 A portion of this note was documented by scribe services under my direction. I have reviewed the details of the note, within reason, and agree with the documentation with the following case summary and management plan written by me. Patient treated in the ED. Nursing notes are reviewed and incorporated into the medical decision-making. Vital signs reviewed. Peripheral IV access obtained by the nurse, laboratory studies are drawn and sent, reviewed and interpreted by myself. Vital Signs Temp Pulse Resp BP Pulse Ox 97.8 F 86 22 107/57 100 11/12/17 09:41 11/12/17 09:41 11/12/17 09:41 11/12/17 09:41 11/12/17 09:41 22-year-old female with past medical history of sickle cell disease, avascular necrosis of the right hip, prior DVT on lifelong Lovenox twice a day brought in by EMS for sickle cell crisis. Patient reports since yesterday of having diffuse bony pains consistent with her prior sickle cell crisis. Patient denies any fevers, shortness of breath or wheezing. Reports sternal pain and chest pain. States that the cold weather is likely exacerbating her sickle cell crisis. I have low suspicion for acute chest syndrome but given the chest pain, we'll obtain a chest x-ray. Labs, pain control and IV fluids. If the patient's pain is not improved, we'll need to consider admission to the hospital for sickle cell crisis. 11/12/17 11:53 CBC, BMP 11/12/17 09:44 11/12/17 09:44 CMP Sodium 141 mmol/L (136-145) 11/12/17 09:44 Potassium 4.0 mmol/L (3.5-5.1) 11/12/17 09:44 Chloride 110 mmol/L (98-107) H 11/12/17 09:44 Carbon Dioxide 24 mmol/L (21-32) 11/12/17 09:44 Anion Gap 7 (8-16) L 11/12/17 09:44 BUN 8 mg/dL (7-18) 11/12/17 09:44 Creatinine 0.5 mg/dL (0.55-1.02) L 11/12/17 09:44 Creat Clearance w eGFR > 60 (>60) 11/12/17 09:44 Random Glucose 87 mg/dL (74-106) 11/12/17 09:44 Calcium 8.3 mg/dL (8.5-10.1) L 11/12/17 09:44 Phosphorus 3.5 mg/dL (2.5-4.9) 11/12/17 09:44 Magnesium 2.4 mg/dL (1.8-2.4) 11/12/17 09:44 Total Bilirubin 2.9 mg/dL (0.2-1.0) H 11/12/17 09:44 AST 15 U/L (15-37) D 11/12/17 09:44 ALT 27 U/L (12-78) D 11/12/17 09:44 Alkaline Phosphatase 100 U/L (45-117) D 11/12/17 09:44 Creatine Kinase 29 IU/L (26-192) 11/12/17 09:44 Troponin I < 0.02 ng/ml (0.00-0.05) 11/12/17 09:44 Total Protein 7.3 g/dl (6.4-8.2) 11/12/17 09:44 Albumin 3.9 g/dl (3.4-5.0) 11/12/17 09:44 Serum , Qual Negative 11/12/17 09:44 Chest xray reviewed. No infiltrates. Pt continues to have pain. Will admit for sickle cell crisis. Case discussed with [facility] hospitalist. Case admitted to med/surg observation. Case discussed in detail with admitting physician including history, physical exam and ancillary studies. Admitting physician has assumed care for the patient, will follow all pending diagnostics and will complete the evaluation and treatment. <Anant Aguiar - Last Filed: 11/12/17 11:54> *DC/Admit/Observation/Transfer - Attestations Scribe Attestion: 11/12/17 10:15 Documentation prepared by Shannan Lowery, acting as medical records analyst for Anant Aguiar MD <Shannan Lowery - Last Filed: 11/12/17 10:47> - Discharge Dispostion Admit: Yes <Anant Aguiar - Last Filed: 11/12/17 11:54> Diagnosis at time of Disposition: Sickle cell crisis - Discharge Dispostion Condition at time of disposition: Stable - Referrals Referrals: Phu Crow MD [Primary Care Provider] - - Patient Instructions - Post Discharge Activity
[2017-11-12] MEDS ORDERED: morphine CARPU-JECT 10 MG/1 ML DISP.SYRIN ONE ×5 (09:48→17:42)
[2017-11-12] MEDS: SODIUM CHLORIDE 1,000 ML IV SCH ×2 (10:00→14:41)
[2017-11-12 10:21] LABS: BASO % 1.1 % (0-2.0); EOS % 2.1 % (0-4.5); HEMATOCRIT 28.8 % (32.4-45.2); HEMOGLOBIN 9.7 GM/dL (10.7-15.3); MCH 37.2 pg (25.7-33.7); MCHC 33.7 g/dl (32.0-36.0); MEAN CELL VOLUME 110.4 fl (80-96); MEAN PLT VOLUME 7.5 fl (7.5-11.1); MONO % 8.3 % (3.8-10.2); NEUT % 66.5 % (42.8-82.8); PLATELET COUNT 411 K/MM3 (134-434); RBC 2.61 M/mm3 (3.60-5.2); RDW 16.5 % (11.6-15.6); WHITE BLOOD COUNT 12.1 K/mm3 (4.0-10.0)
[2017-11-12 10:28] LABS: ADD RBC MORPHOLOGY YES
[2017-11-12 10:33] LABS: INR 1.07 (0.82-1.09); PROTHROMBIN TIME (PATIENT) 12.1 SEC (9.98-11.88)
[2017-11-12 10:35] LABS: ACTIVATED PTT 24.6 SECONDS (26.9-34.4)
[2017-11-12 10:39] LABS: ALBUMIN 3.9 g/dl (3.4-5.0); ANION GAP 7 (8-16); BLOOD UREA NITROGEN 8 mg/dL (7-18); CALCIUM 8.3 mg/dL (8.5-10.1); CHLORIDE 110 mmol/L (98-107); CO2 24 mmol/L (21-32); CREATININE 0.5 mg/dL (0.55-1.02); GLUCOSE,RANDOM 87 mg/dL (74-106); MAGNESIUM 2.4 mg/dL (1.8-2.4); PHOSPHOROUS 3.5 mg/dL (2.5-4.9); SGOT/AST 15 U/L (15-37); SGPT/ALT 27 U/L (12-78); SODIUM 141 mmol/L (136-145)
[2017-11-12 10:43] LABS: ALK PHOS 100 U/L (45-117); BILIRUBIN,TOTAL 2.9 mg/dL (0.2-1.0); TOT PROT 7.3 g/dl (6.4-8.2)
[2017-11-12] MEDS ORDERED: morphine CARPU-JECT 4 MG/1 ML DISP.SYRIN IVPUSH ONE ×2 (10:48→11:35)
[2017-11-12 11:13] LABS: ANISOCYTOSIS 1+; MACROCYTOSIS 2+
[2017-11-12 11:14] LABS: PLATELET ESTIMATE ADEQUATE; TARGET CELLS 1+
--- NOTE | 2017-11-12 12:13 | EKG ---
Test Reason : Blood Pressure : / mmHG Vent. Rate : 084 BPM Atrial Rate : 084 BPM P-R Int : 166 ms QRS Dur : 086 ms QT Int : 402 ms P-R-T Axes : 018 047 017 degrees QTc Int : 475 ms NORMAL SINUS RHYTHM NONSPECIFIC T WAVE ABNORMALITY PROLONGED QT ABNORMAL ECG WHEN COMPARED WITH ECG OF 08-OCT-2016 23:40, NO SIGNIFICANT CHANGE WAS FOUND Confirmed by TIGRE ROWLEY MD ([id number]) on 11/12/2017 12:13:06 PM Referred By: Confirmed By:TIGRE ROWLEY MD
--- NOTE | 2017-11-12 13:35 | HP ---
CHIEF COMPLAINT: sickle cell crisis PCP: Dr. 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 The patient reports that the pain started last night and has progressively worsened and this morning she was not able to get out of bed. The patient reports the pain to be similar to her sickle cell pain in the past. She denies any chest pain, cough, fever, chills, urinary symptoms, dizziness, headache. ER course was notable for: (1) WBC 12.1, Hgb 9.7, Hct 28.8 (2) Retic count 7.45 (3) 97.8, pulse 86, bp 107/57, resp 22, O2 on RA 100% (4) Chest X-ray with no evidence of active pulmonary disease Recent Travel: denies PAST MEDICAL HISTORY: as above PAST SURGICAL HISTORY: as above Social History: Smoking: denies Alcohol: denies Drugs: denies Family History: Allergies ceftriaxone Allergy (Verified 11/12/17 09:41) ceftriaxone sodium [From Rocephin] Allergy (Verified 11/12/17 09:41) rash redness hydromorphone HCl [From Dilaudid] Allergy (Verified 11/12/17 09:41) Rash Penicillins Allergy (Verified 11/12/17 09:41) Rash HOME MEDICATIONS: Home Medications Medication Instructions Recorded Hydroxyurea [Hydrea] 1,000 mg PO DAILY 03/13/16 Gabapentin [Neurontin -] 600 mg PO Q6HPO 30 Days capsule 10/11/16 Oxycodone HCl 10 mg PO BID PRN #20 tablet MDD 2 04/03/17 Aspirin [ASA -] 81 mg PO DAILY 11/12/17 Cyclobenzaprine HCl 10 mg PO QID 11/12/17 Enoxaparin Sodium [Lovenox] 40 mg SQ BID 11/12/17 REVIEW OF SYSTEMS CONSTITUTIONAL: Absent: fever, chills, diaphoresis, generalized weakness, malaise, loss of appetite, weight change HEENT: Absent: rhinorrhea, nasal congestion, throat pain, throat swelling, difficulty swallowing, mouth swelling, ear pain, eye pain, visual changes CARDIOVASCULAR: Absent: chest pain, syncope, palpitations, irregular heart rate , lightheadedness, peripheral edema RESPIRATORY: Absent: cough, shortness of breath, dyspnea with exertion, orthopnea, wheezing, stridor, hemoptysis GASTROINTESTINAL:Absent: abdominal pain, abdominal distension, nausea, vomiting , diarrhea, constipation, melena, hematochezia GENITOURINARY: Absent: dysuria, frequency, urgency, hesitancy, hematuria, flank pain, genital pain MUSCULOSKELETAL: b/l lower extremity and upper extremity pain and lower back pain that started yesterday evening. Absent: joint swelling, neck pain SKIN: Absent: rash, itching, pallor HEMATOLOGIC/IMMUNOLOGIC: Absent: easy bleeding, easy bruising, lymphadenopathy, frequent infections ENDOCRINE:Absent: unexplained weight gain, unexplained weight loss, heat intolerance, cold intolerance NEUROLOGIC: Absent: headache, focal weakness or paresthesias, dizziness, unsteady gait, seizure, mental status changes, bladder or bowel incontinence PSYCHIATRIC: Absent: anxiety, depression, suicidal or homicidal ideation, hallucinations. PHYSICAL EXAMINATION Vital Signs - 24 hr 11/12/17 11/12/17 11/12/17 09:41 11:19 12:53 Temperature 97.8 F Pulse Rate 86 Pulse Rate [ 87 Radial] Respiratory 22 20 Rate Blood Pressure 107/57 Blood Pressure 121/72 [Right Arm] O2 Sat by Pulse 100 100 98 Oximetry (%) GENERAL: Awake, alert, and fully oriented, in no acute distress. HEAD: Normal with no signs of trauma. EYES: Pupils equal, round and reactive to light, extraocular movements intact, sclera anicteric, conjunctiva clear. No lid lag. EARS, NOSE, THROAT: Ears normal, nares patent, oropharynx clear without exudates. Moist mucous membranes. NECK: Normal range of motion, supple without lymphadenopathy, JVD, or masses. LUNGS: Breath sounds equal, clear to auscultation bilaterally. No wheezes, and no crackles. No accessory muscle use. HEART: Regular rate and rhythm, normal S1 and S2 without murmur, rub or gallop. ABDOMEN: Soft, nontender, not distended, normoactive bowel sounds, no guarding, no rebound, no masses. No hepatomegaly or splenomegaly. MUSCULOSKELETAL: Normal range of motion at all joints. No bony deformities or tenderness. No CVA tenderness. UPPER EXTREMITIES: 2+ pulses, warm, well-perfused. No cyanosis. No clubbing. No peripheral edema. LOWER EXTREMITIES: 2+ pulses, warm, well-perfused. No calf tenderness. No peripheral edema. NEUROLOGICAL: Cranial nerves II-XII intact. Normal speech. Normal gait. PSYCHIATRIC: Cooperative. Good eye contact. Appropriate mood and affect. SKIN: Warm, dry, normal turgor, no rashes or lesions noted, normal capillary refill. Laboratory Results - last 24 hr 11/12/17 11/12/17 11/12/17 09:44 09:44 09:44 WBC 12.1 H RBC 2.61 L Hgb 9.7 L Hct 28.8 L MCV 110.4 H MCH 37.2 H D MCHC 33.7 RDW 16.5 H D Plt Count 411 MPV 7.5 Neutrophils % 66.5 D Lymphocytes % 22.0 D Monocytes % 8.3 Eosinophils % 2.1 Basophils % 1.1 Platelet Estimate Adequate Polychromasia 1+ Anisocytosis 1+ Macrocytosis 2+ Target Cells 1+ Retic Count PT with INR 12.10 H INR 1.07 PTT (Actin FS) 24.6 L Sodium Potassium Chloride Carbon Dioxide Anion Gap BUN Creatinine Creat Clearance w eGFR Random Glucose Calcium Phosphorus Magnesium Total Bilirubin AST ALT Alkaline Phosphatase Creatine Kinase Troponin I Total Protein Albumin Serum , Qual Negative 11/12/17 11/12/17 09:44 10:05 WBC RBC Hgb Hct MCV MCH MCHC RDW Plt Count MPV Neutrophils % Lymphocytes % Monocytes % Eosinophils % Basophils % Platelet Estimate Polychromasia Anisocytosis Macrocytosis Target Cells Retic Count 7.45 H PT with INR INR PTT (Actin FS) Sodium 141 Potassium 4.0 Chloride 110 H Carbon Dioxide 24 Anion Gap 7 L BUN 8 Creatinine 0.5 L Creat Clearance w eGFR > 60 Random Glucose 87 Calcium 8.3 L Phosphorus 3.5 Magnesium 2.4 Total Bilirubin 2.9 H AST 15 D ALT 27 D Alkaline Phosphatase 100 D Creatine Kinase 29 Troponin I < 0.02 Total Protein 7.3 Albumin 3.9 Serum , Qual Assessment: This is a 22 year old female with PMHx of 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 Plan: 1) Sickle cell crisis: - Chest X-ray here negative for acute process - No evidence of splenic sequestration, no splenomegaly on exam, no hypovolemia (BP at baseline), Hgb stable and around baseline - Retic count noted - Continue IV fluids - Continue folic acid - Continue Hydroxyurea - Continue multivitamin - Continue Morphine - Continue Gabapentin - Continue ASA - F/u hematology consult 3) Hx of DVT - Diagnosed in 2009, 2015, patient reports she is on Lovenox 40mg sq bid 4) F/E/N: - Regular diet - Monitor electrolytes 5) Prophylaxis: - Lovenox 40mg sq bid (home dosing) - OOB ambulating 6) Dispo: - Once condition improves CODE STATUS: FULL CODE Visit type - Emergency Visit Emergency Visit: Yes ED Registration Date: 11/13/17 Care time: The patient presented to the Emergency Department on the above date and was hospitalized for further evaluation of their emergent condition. - New Patient This patient is new to me today: Yes Date on this admission: 11/13/17 - Critical Care Critical Care patient: No
[2017-11-12] MEDS: FOLIC ACID 1 MG TABLET (FP) PO SCH (14:42)
[2017-11-12] MEDS: morphine CARPU-JECT 10 MG/1 ML DISP.SYRIN IVPUSH PRN ×3 (15:01→22:05)
[2017-11-12] MEDS ORDERED: CYCLOBENZAPRINE HCL 10 MG TABLET (FP) ONE (16:03)
[2017-11-12] MEDS: CYCLOBENZAPRINE HCL 10 MG TABLET (FP) PO SCH ×3 (16:12→21:12)
--- NOTE | 2017-11-12 18:21 | CONSULT ---
Consult - text type - Consultation Consultation Note: This is a 22 year old female with PMHx of 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 The patient reports that the pain started last night and has progressively worsened and this morning she was not able to get out of bed. The patient reports the pain to be similar to her sickle cell pain in the past. She denies any chest pain, cough, fever, chills, urinary symptoms, dizziness, headache. ER course was notable for: (1) WBC 12.1, Hgb 9.7, Hct 28.8 (2) Retic count 7.45 (3) 97.8, pulse 86, bp 107/57, resp 22, O2 on RA 100% (4) Chest X-ray with no evidence of active pulmonary disease Recent Travel: denies PAST MEDICAL HISTORY: as above PAST SURGICAL HISTORY: as above Social History: Smoking: denies Alcohol: denies Drugs: denies Family History: Allergies ceftriaxone Allergy (Verified 11/12/17 09:41) ceftriaxone sodium [From Rocephin] Allergy (Verified 11/12/17 09:41) rash redness hydromorphone HCl [From Dilaudid] Allergy (Verified 11/12/17 09:41) Rash Penicillins Allergy (Verified 11/12/17 09:41) Rash HOME MEDICATIONS: Home Medications Medication Instructions Recorded Hydroxyurea [Hydrea] 1,000 mg PO DAILY 03/13/16 Gabapentin [Neurontin -] 600 mg PO Q6HPO 30 Days capsule 10/11/16 Oxycodone HCl 10 mg PO BID PRN #20 tablet MDD 2 04/03/17 Aspirin [ASA -] 81 mg PO DAILY 11/12/17 Cyclobenzaprine HCl 10 mg PO QID 11/12/17 Enoxaparin Sodium [Lovenox] 40 mg SQ BID 11/12/17 PHYSICAL EXAMINATION Last Vital Signs Temp Pulse Resp BP Pulse Ox 98.2 F 104 H 18 121/73 97 11/12/17 14:49 11/12/17 18:56 11/12/17 18:56 11/12/17 18:56 11/12/17 18:56 Cor: RSR, No murmurs, No gallops Lungs: Clear to P&A Abd: Soft, Normal bowel sounds, No organomegaly Ext:No significant edema Abnormal Lab Results 11/12/17 11/12/17 11/12/17 09:44 09:44 09:44 WBC 12.1 H RBC 2.61 L Hgb 9.7 L Hct 28.8 L MCV 110.4 H MCH 37.2 H D RDW 16.5 H D Retic Count PT with INR 12.10 H PTT (Actin FS) 24.6 L Chloride 110 H Anion Gap 7 L Creatinine 0.5 L Calcium 8.3 L Total Bilirubin 2.9 H 11/12/17 10:05 WBC RBC Hgb Hct MCV MCH RDW Retic Count 7.45 H PT with INR PTT (Actin FS) Chloride Anion Gap Creatinine Calcium Total Bilirubin Home Medication List Medication Instructions Recorded Confirmed Type Hydroxyurea [Hydrea] 1,000 mg PO DAILY 03/13/16 11/12/17 History Aspirin [ASA -] 81 mg PO DAILY 11/12/17 11/12/17 History Cyclobenzaprine HCl 10 mg PO QID 11/12/17 11/12/17 History Enoxaparin Sodium [Lovenox] 40 mg SQ BID 11/12/17 11/12/17 History Active Medications Generic Name Dose Route Start Last Admin Trade Name Freq PRN Reason Stop Dose Admin Aspirin 81 mg 11/13/17 10:00 Asa - PO DAILY MAYELA Cyclobenzaprine HCl 10 mg 11/12/17 14:00 11/12/17 21:12 Flexeril - PO 10 mg QID MAYELA Administration Enoxaparin Sodium 40 mg 11/12/17 22:00 11/12/17 21:12 Lovenox - SQ 40 mg BID MAYELA Administration Folic Acid 1 mg 11/12/17 13:00 11/12/17 14:42 Folic Acid - PO 1 mg DAILY MAYELA Administration Gabapentin 600 mg 11/12/17 18:00 11/12/17 18:58 Neurontin - PO 600 mg Q6HPO MAYELA Administration Hydroxyurea 1,000 mg 11/13/17 10:00 Hydrea - PO DAILY MAYELA Sodium Chloride 1,000 mls @ 125 mls/hr 11/12/17 09:45 11/12/17 10:00 Normal Saline - IV 125 mls/hr ASDIR MAYELA Administration Sodium Chloride 1,000 mls @ 150 mls/hr 11/12/17 12:30 11/12/17 14:41 Normal Saline - IV 150 mls/hr ASDIR MAYELA Administration Morphine Sulfate 3 mg 11/12/17 12:30 11/12/17 22:05 Morphine Injection - IVPUSH 3 mg Q4H PRN Administration PAIN Multivitamins/Minerals/Vitamin C 1 tab 11/13/17 10:00 Tab-A-Vit - PO DAILY MAYELA Assessment: This is a 22 year old female with PMHx of 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 Plan: 1) Sickle cell crisis: - Chest X-ray here negative for acute process Hgb 9.7 agree with fluids/pain control/spirometry/folic acid f/u with Dr. Crow as outpatient monitor clinical course/ CBC 2 Hx of DVT - Diagnosed in 2015, patient reports she is on Lovenox 40mg sq bid
[2017-11-12] MEDS: GABAPENTIN 300 MG CAPSULE (FP) PO SCH ×2 (18:58→23:19)
[2017-11-12 19:00] VITALS: BMI 26.4
[2017-11-12] MEDS: ENOXAPARIN NA (PORCINE) 40 MG/0.4 ML DISP.SYRIN SQ SCH (21:12)
[2017-11-12] MEDS ORDERED: ONDANSETRON 4 MG/2 ML VIAL IVPUSH ONE (23:15)
[2017-11-13] MEDS: morphine CARPU-JECT 10 MG/1 ML DISP.SYRIN IVPUSH PRN ×6 (01:40→21:46)
[2017-11-13] MEDS: SODIUM CHLORIDE 1,000 ML IV SCH ×3 (02:30→17:38)
[2017-11-13] MEDS: GABAPENTIN 300 MG CAPSULE (FP) PO SCH ×4 (06:12→17:38)
[2017-11-13 08:18] LABS: BASO % 0.9 % (0-2.0); EOS % 2.2 % (0-4.5); LYMPH % 43.7 % (8-40); MCH 36.8 pg (25.7-33.7); MCHC 33.2 g/dl (32.0-36.0); MEAN CELL VOLUME 111.1 fl (80-96); MEAN PLT VOLUME 7.3 fl (7.5-11.1); MONO % 7.7 % (3.8-10.2); NEUT % 45.5 % (42.8-82.8); PLATELET COUNT 377 K/MM3 (134-434); RBC 2.43 M/mm3 (3.60-5.2); RDW 18.4 % (11.6-15.6); WHITE BLOOD COUNT 12.3 K/mm3 (4.0-10.0)
[2017-11-13 08:34] LABS: ALBUMIN 3.6 g/dl (3.4-5.0); ANION GAP 6 (8-16); BLOOD UREA NITROGEN 6 mg/dL (7-18); CHLORIDE 110 mmol/L (98-107); CO2 25 mmol/L (21-32); CREATININE 0.5 mg/dL (0.55-1.02); GLUCOSE,RANDOM 85 mg/dL (74-106); MAGNESIUM 2.2 mg/dL (1.8-2.4); POTASSIUM 4.3 mmol/L (3.5-5.1); SGOT/AST 31 U/L (15-37); SGPT/ALT 43 U/L (12-78); SODIUM 141 mmol/L (136-145)
[2017-11-13 08:36] LABS: ALK PHOS 89 U/L (45-117); BILIRUBIN,TOTAL 3.1 mg/dL (0.2-1.0); PHOSPHOROUS 4.2 mg/dL (2.5-4.9); TOT PROT 6.3 g/dl (6.4-8.2)
[2017-11-13] MEDS: ENOXAPARIN NA (PORCINE) 40 MG/0.4 ML DISP.SYRIN SQ SCH ×2 (09:48→21:46)
[2017-11-13] MEDS: HYDROXYUREA 500 MG CAPSULE PO SCH (09:48)
[2017-11-13] MEDS: CYCLOBENZAPRINE HCL 10 MG TABLET (FP) PO SCH ×4 (09:48→21:46)
[2017-11-13] MEDS: ASPIRIN 81 MG CHEWABLE TABLETS PO SCH (09:48)
[2017-11-13] MEDS: FOLIC ACID 1 MG TABLET (FP) PO SCH (09:48)
[2017-11-13] MEDS: MULTIVITAMINS (DAILY MVI) TABLET (FP) PO SCH (09:48)
[2017-11-13] MEDS ORDERED: ENOXAPARIN NA (PORCINE) 40 MG/0.4 ML DISP.SYRIN SQ SCH (10:00)
[2017-11-13 11:06] LABS: URINE APPEARANCE SLCLOUDY; URINE BILIRUBIN NEGATIVE (NEGATIVE); URINE BLOOD 2+ (NEGATIVE); URINE COLOR YELLOW; URINE GLUCOSE (UA) NEGATIVE (NEGATIVE); URINE KETONE NEGATIVE (NEGATIVE); URINE NITRITE NEGATIVE (NEGATIVE); URINE PROTEIN NEGATIVE (NEGATIVE); URINE UROBILINOGEN NEGATIVE mg/dL (0.2-1.0)
[2017-11-13 11:15] LABS: URINE LEUK ESTERASE 2+ (NEGATIVE)
[2017-11-13 11:21] LABS: EPI CELLS RARE /HPF (FEW); URINE MUCUS RARE
--- NOTE | 2017-11-13 12:27 | PN ---
Progress Note (short form) - Note Progress Note: Patient seen and examined this am. She feels a little bit better than yesterday but continues to have intermittent pain in the right hip. Labs reviewed, stable. Cor: RSR, No murmurs, No gallops Lungs: Clear to P&A Abd: Soft, Normal bowel sounds, No organomegaly Ext:No significant edema Temp Pulse Resp BP Pulse Ox 98.1 F 77 18 101/59 96 11/13/17 05:20 11/13/17 05:20 11/13/17 05:20 11/13/17 05:20 11/13/17 04:00 CBC, BMP 11/13/17 07:30 11/13/17 07:30 Current Medications Generic Name Dose Route Start Last Admin Trade Name Freq PRN Reason Stop Dose Admin Aspirin 81 mg 11/13/17 10:00 11/13/17 09:48 Asa - PO 81 mg DAILY MAYELA Administration Cyclobenzaprine HCl 10 mg 11/12/17 14:00 11/13/17 09:48 Flexeril - PO 10 mg QID MAYELA Administration Enoxaparin Sodium 40 mg 11/12/17 22:00 11/13/17 09:48 Lovenox - SQ 40 mg BID MAYELA Administration Folic Acid 1 mg 11/12/17 13:00 11/13/17 09:48 Folic Acid - PO 1 mg DAILY MAYELA Administration Gabapentin 600 mg 11/12/17 18:00 11/13/17 12:11 Neurontin - PO 600 mg Q6HPO MAYELA Administration Hydroxyurea 1,000 mg 11/13/17 10:00 11/13/17 09:48 Hydrea - PO 1,000 mg DAILY MAYELA Administration Sodium Chloride 1,000 mls @ 125 mls/hr 11/12/17 09:45 11/13/17 09:49 Normal Saline - IV Not Given ASDIR MAYELA Sodium Chloride 1,000 mls @ 150 mls/hr 11/12/17 12:30 11/13/17 02:30 Normal Saline - IV 150 mls/hr ASDIR MAYELA Administration Morphine Sulfate 3 mg 11/12/17 12:30 11/13/17 09:46 Morphine Injection - IVPUSH 3 mg Q4H PRN Administration PAIN Multivitamins/Minerals/Vitamin C 1 tab 11/13/17 10:00 01/09/18 09:48 Tab-A-Vit - PO 1 tab DAILY MAYELA Administration Sickle cell crisis: agree with fluids/pain control/spirometry/folic acid/hydrea decrease the fluid rate to 100 f/u with Dr. Crow as outpatient Monitor hemolysis labs has OP f.u with ortho for AVN and also has an upcoming SCT evaluation at [facility] Hx of DVT Diagnosed in 2009, 2015, patient reports she is on Lovenox 40mg sq bid
--- NOTE | 2017-11-13 14:22 | PN ---
Progress Note (short form) - Note Progress Note: Subjective: The patient was seen and examined at the bedside, she now reports left lower chest pain. F/u EKG, cardiac profile, chest x-ray Patient reports her pain is "under control" Current Medications Generic Name Dose Route Start Last Admin Trade Name Freq PRN Reason Stop Dose Admin Aspirin 81 mg 11/13/17 10:00 11/13/17 09:48 Asa - PO 81 mg DAILY MAYELA Administration Cyclobenzaprine HCl 10 mg 11/12/17 14:00 11/13/17 09:48 Flexeril - PO 10 mg QID MAYELA Administration Enoxaparin Sodium 40 mg 11/12/17 22:00 11/13/17 09:48 Lovenox - SQ 40 mg BID MAYELA Administration Folic Acid 1 mg 11/12/17 13:00 11/13/17 09:48 Folic Acid - PO 1 mg DAILY MAYELA Administration Gabapentin 600 mg 11/12/17 18:00 11/13/17 12:11 Neurontin - PO 600 mg Q6HPO MAYELA Administration Hydroxyurea 1,000 mg 11/13/17 10:00 11/13/17 09:48 Hydrea - PO 1,000 mg DAILY MAYELA Administration Sodium Chloride 1,000 mls @ 125 mls/hr 11/12/17 09:45 11/13/17 09:49 Normal Saline - IV Not Given ASDIR MAYELA Sodium Chloride 1,000 mls @ 150 mls/hr 11/12/17 12:30 11/13/17 02:30 Normal Saline - IV 150 mls/hr ASDIR MAYELA Administration Morphine Sulfate 3 mg 11/12/17 12:30 11/13/17 13:31 Morphine Injection - IVPUSH 3 mg Q4H PRN Administration PAIN Multivitamins/Minerals/Vitamin C 1 tab 11/13/17 10:00 11/13/17 09:48 Tab-A-Vit - PO 1 tab DAILY MAYELA Administration Objective: Vital Signs Period Temp Pulse Resp BP Sys/Oliveira Pulse Ox Last 24 Hr 98.1 F-98.5 F 77-104 14-18 101-121/58-74 96-97 Physical Exam: General: NAD, A&Ox3 Lungs: CTA bilaterally Heart: RRR, S1S2 Abd: Soft, non-tender, non-distended. Normoactive bowel sounds Ext: Warm, well-perfused. 2+ DP/PT bilaterally Neuro: CN 2-12 intact CBCD WBC 12.3 K/mm3 (4.0-10.0) H 11/13/17 07:30 RBC 2.43 M/mm3 (3.60-5.2) L 11/13/17 07:30 Hgb 9.0 GM/dL (10.7-15.3) L 11/13/17 07:30 Hct 27.0 % (32.4-45.2) L 11/13/17 07:30 MCV 111.1 fl (80-96) H 11/13/17 07:30 MCHC 33.2 g/dl (32.0-36.0) 11/13/17 07:30 RDW 18.4 % (11.6-15.6) H D 11/13/17 07:30 Plt Count 377 K/MM3 (134-434) 11/13/17 07:30 MPV 7.3 fl (7.5-11.1) L 11/13/17 07:30 CMP Sodium 141 mmol/L (136-145) 11/13/17 07:30 Potassium 4.3 mmol/L (3.5-5.1) 11/13/17 07:30 Chloride 110 mmol/L (98-107) H 11/13/17 07:30 Carbon Dioxide 25 mmol/L (21-32) 11/13/17 07:30 Anion Gap 6 (8-16) L 11/13/17 07:30 BUN 6 mg/dL (7-18) L D 11/13/17 07:30 Creatinine 0.5 mg/dL (0.55-1.02) L 11/13/17 07:30 Creat Clearance w eGFR > 60 (>60) 11/13/17 07:30 Random Glucose 85 mg/dL (74-106) 11/13/17 07:30 Calcium 8.0 mg/dL (8.5-10.1) L 11/13/17 07:30 Total Bilirubin 3.1 mg/dL (0.2-1.0) H 11/13/17 07:30 AST 31 U/L (15-37) D 11/13/17 07:30 ALT 43 U/L (12-78) D 11/13/17 07:30 Alkaline Phosphatase 89 U/L (45-117) 11/13/17 07:30 Total Protein 6.3 g/dl (6.4-8.2) L 11/13/17 07:30 Albumin 3.6 g/dl (3.4-5.0) 11/13/17 07:30 CARDIAC ENZYMES Creatine Kinase 29 IU/L (26-192) 11/12/17 09:44 Troponin I < 0.02 ng/ml (0.00-0.05) 11/12/17 09:44 Assessment: This is a 22 year old female with PMHx of 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 Plan: 1) Sickle cell crisis: - Chest X-ray here negative for acute process - No evidence of splenic sequestration, no splenomegaly on exam, no hypovolemia (BP at baseline) - Continue to monitor Hgb - Continue IV fluids - Continue folic acid - Continue Hydroxyurea - Continue multivitamin - Continue Morphine - Continue Gabapentin - Continue ASA - Appreciate hematology consult 2) Chest pain: - New onset, patient reports intermitted, sharp, left lower chest pain - F/u cardiac profile - F/u EKG - F/u repeat chest x-ray 3) Hx of DVT - Diagnosed in 2009, 2015, patient reports she is on Lovenox 40mg sq bid - Lower extremity doppler negative for DVT 4) F/E/N: - Regular diet - Monitor electrolytes 5) Prophylaxis: - Lovenox 40mg sq bid (home dosing) - OOB ambulating 6) Dispo: - Requires continued inpatient care CODE STATUS: FULL CODE Visit type - Emergency Visit Emergency Visit: Yes ED Registration Date: 11/13/17 Care time: The patient presented to the Emergency Department on the above date and was hospitalized for further evaluation of their emergent condition. - New Patient This patient is new to me today: No - Critical Care Critical Care patient: No
--- NOTE | 2017-11-13 15:10 | EKG ---
Test Reason : Blood Pressure : / mmHG Vent. Rate : 088 BPM Atrial Rate : 088 BPM P-R Int : 164 ms QRS Dur : 084 ms QT Int : 378 ms P-R-T Axes : 034 050 040 degrees QTc Int : 457 ms NORMAL SINUS RHYTHM NONSPECIFIC T WAVE ABNORMALITY ABNORMAL ECG WHEN COMPARED WITH ECG OF 12-NOV-2017 10:48, NO SIGNIFICANT CHANGE WAS FOUND Confirmed by Charles Metzger MD ([id number]) on 11/13/2017 3:10:26 PM Referred By: Walter LOVE Confirmed By:Charles Metzger MD
[2017-11-14] MEDS: GABAPENTIN 300 MG CAPSULE (FP) PO SCH ×4 (01:00→18:12)
[2017-11-14] MEDS: morphine CARPU-JECT 10 MG/1 ML DISP.SYRIN IVPUSH PRN ×5 (01:01→23:56)
[2017-11-14] MEDS: SODIUM CHLORIDE 1,000 ML IV SCH ×5 (01:55→18:41)
[2017-11-14 09:07] LABS: ALBUMIN 3.5 g/dl (3.4-5.0); CHLORIDE 109 mmol/L (98-107); POTASSIUM 4.5 mmol/L (3.5-5.1); SODIUM 141 mmol/L (136-145)
[2017-11-14 09:12] LABS: EOS % 3.3 % (0-4.5); HEMATOCRIT 28.6 % (32.4-45.2); HEMOGLOBIN 9.5 GM/dL (10.7-15.3); LYMPH % 33.6 % (8-40); MCH 37.3 pg (25.7-33.7); MCHC 33.2 g/dl (32.0-36.0); MEAN CELL VOLUME 112.3 fl (80-96); MEAN PLT VOLUME 8.2 fl (7.5-11.1); MONO % 6.6 % (3.8-10.2); NEUT % 55.5 % (42.8-82.8); PLATELET COUNT 334 K/MM3 (134-434); RBC 2.55 M/mm3 (3.60-5.2); RDW 18.5 % (11.6-15.6); WHITE BLOOD COUNT 13.6 K/mm3 (4.0-10.0)
[2017-11-14 09:13] LABS: ALK PHOS 95 U/L (45-117); ANION GAP 8 (8-16); BLOOD UREA NITROGEN 6 mg/dL (7-18); CALCIUM 8.5 mg/dL (8.5-10.1); CO2 24 mmol/L (21-32); CREATININE 0.5 mg/dL (0.55-1.02); GLUCOSE,RANDOM 79 mg/dL (74-106); LDH 260 U/L (84-246); SGOT/AST 32 U/L (15-37); SGPT/ALT 47 U/L (12-78); TOT PROT 6.5 g/dl (6.4-8.2)
[2017-11-14] MEDS: HYDROXYUREA 500 MG CAPSULE PO SCH (10:05)
[2017-11-14] MEDS: FOLIC ACID 1 MG TABLET (FP) PO SCH (10:05)
[2017-11-14] MEDS: CYCLOBENZAPRINE HCL 10 MG TABLET (FP) PO SCH ×5 (10:05→21:36)
[2017-11-14] MEDS: MULTIVITAMINS (DAILY MVI) TABLET (FP) PO SCH (10:05)
[2017-11-14] MEDS: ASPIRIN 81 MG CHEWABLE TABLETS PO SCH (10:05)
[2017-11-14] MEDS: ENOXAPARIN NA (PORCINE) 40 MG/0.4 ML DISP.SYRIN SQ SCH ×2 (10:06→21:36)
[2017-11-14] MEDS ORDERED: PT OWN MED DRAWER 7, Y5N ONE (13:50)
[2017-11-14] MEDS: LEVOFLOXACIN 500 MG IVPB 500 MG/100 ML BAG IVPB SCH (16:13)
--- NOTE | 2017-11-14 18:02 | PN ---
Progress Note (short form) - Note Progress Note: Subjective: The patient was seen and examined at the bedside, she now reports left lower chest pain. F/u EKG, cardiac profile, chest x-ray Patient reports her pain is "under control" Current Medications Generic Name Dose Route Start Last Admin Trade Name Freq PRN Reason Stop Dose Admin Aspirin 81 mg 11/13/17 10:00 11/13/17 09:48 Asa - PO 81 mg DAILY MAYELA Administration Cyclobenzaprine HCl 10 mg 11/12/17 14:00 11/13/17 09:48 Flexeril - PO 10 mg QID MAYELA Administration Enoxaparin Sodium 40 mg 11/12/17 22:00 11/13/17 09:48 Lovenox - SQ 40 mg BID MAYELA Administration Folic Acid 1 mg 11/12/17 13:00 11/13/17 09:48 Folic Acid - PO 1 mg DAILY MAYELA Administration Gabapentin 600 mg 11/12/17 18:00 11/13/17 12:11 Neurontin - PO 600 mg Q6HPO MAYELA Administration Hydroxyurea 1,000 mg 11/13/17 10:00 11/13/17 09:48 Hydrea - PO 1,000 mg DAILY MAYELA Administration Sodium Chloride 1,000 mls @ 125 mls/hr 11/12/17 09:45 11/13/17 09:49 Normal Saline - IV Not Given ASDIR MAYELA Sodium Chloride 1,000 mls @ 150 mls/hr 11/12/17 12:30 11/13/17 02:30 Normal Saline - IV 150 mls/hr ASDIR MAYELA Administration Morphine Sulfate 3 mg 11/12/17 12:30 11/13/17 13:31 Morphine Injection - IVPUSH 3 mg Q4H PRN Administration PAIN Multivitamins/Minerals/Vitamin C 1 tab 11/13/17 10:00 11/13/17 09:48 Tab-A-Vit - PO 1 tab DAILY MAYELA Administration Objective: Vital Signs Period Temp Pulse Resp BP Sys/Oliveira Pulse Ox Last 24 Hr 98.1 F-98.5 F 77-104 14-18 101-121/58-74 96-97 Physical Exam: General: NAD, A&Ox3 Lungs: CTA bilaterally Heart: RRR, S1S2 Abd: Soft, non-tender, non-distended. Normoactive bowel sounds Ext: Warm, well-perfused. 2+ DP/PT bilaterally Neuro: CN 2-12 intact CBCD WBC 13.6 K/mm3 (4.0-10.0) H 11/14/17 06:30 RBC 2.55 M/mm3 (3.60-5.2) L 11/14/17 06:30 Hgb 9.5 GM/dL (10.7-15.3) L 11/14/17 06:30 Hct 28.6 % (32.4-45.2) L 11/14/17 06:30 MCV 112.3 fl (80-96) H 11/14/17 06:30 MCHC 33.2 g/dl (32.0-36.0) 11/14/17 06:30 RDW 18.5 % (11.6-15.6) H 11/14/17 06:30 Plt Count 334 K/MM3 (134-434) 11/14/17 06:30 MPV 8.2 fl (7.5-11.1) D 11/14/17 06:30 CMP Sodium 141 mmol/L (136-145) 11/14/17 06:30 Potassium 4.5 mmol/L (3.5-5.1) 11/14/17 06:30 Chloride 109 mmol/L (98-107) H 11/14/17 06:30 Carbon Dioxide 24 mmol/L (21-32) 11/14/17 06:30 Anion Gap 8 (8-16) 11/14/17 06:30 BUN 6 mg/dL (7-18) L 11/14/17 06:30 Creatinine 0.5 mg/dL (0.55-1.02) L 11/14/17 06:30 Creat Clearance w eGFR > 60 (>60) 11/14/17 06:30 Random Glucose 79 mg/dL (74-106) 11/14/17 06:30 Calcium 8.5 mg/dL (8.5-10.1) 11/14/17 06:30 Total Bilirubin 3.0 mg/dL (0.2-1.0) H 11/14/17 06:30 AST 32 U/L (15-37) 11/14/17 06:30 ALT 47 U/L (12-78) 11/14/17 06:30 Alkaline Phosphatase 95 U/L (45-117) 11/14/17 06:30 Total Protein 6.5 g/dl (6.4-8.2) 11/14/17 06:30 Albumin 3.5 g/dl (3.4-5.0) 11/14/17 06:30 CARDIAC ENZYMES Creatine Kinase 31 IU/L (26-192) 11/14/17 06:30 Troponin I < 0.02 ng/ml (0.00-0.05) 11/14/17 06:30 Vital Signs Period Temp Pulse Resp BP Sys/Oliveira Pulse Ox Last 24 Hr 97.8 F-99.1 F 79-102 18-20 94-111/47-60 95-96 Assessment: This is a 22 year old female with PMHx of 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 Plan: 1) Sickle cell crisis: - Chest X-ray here negative for acute process - No evidence of splenic sequestration, no splenomegaly on exam, no hypovolemia (BP at baseline) - Continue to monitor Hgb - Continue IV fluids - Continue folic acid - Continue Hydroxyurea - Continue multivitamin - Continue Morphine - Continue Gabapentin - Continue ASA - Appreciate hematology consult 2) Chest pain: - New onset, patient reports intermitted, sharp, left lower chest pain - F/u cardiac profile - F/u EKG - F/u repeat chest x-ray 3) Hx of DVT - Diagnosed in 2015, patient reports she is on Lovenox 40mg sq bid - Lower extremity doppler negative for DVT 4) F/E/N: - Regular diet - Monitor electrolytes 5) Prophylaxis: - Lovenox 40mg sq bid (home dosing) - OOB ambulating 6) Dispo: - Requires continued inpatient care CODE STATUS: FULL CODE
--- NOTE | 2017-11-14 18:47 | PN ---
Progress Note (short form) - Note Progress Note: Patient seen and examined this am. loosk and feels better than yesterday Labs reviewed, stable. Cor: RSR, No murmurs, No gallops Lungs: Clear to P&A Abd: Soft, Normal bowel sounds, No organomegaly Ext:No significant edema Last Vital Signs Temp Pulse Resp BP Pulse Ox 99.1 F 98 H 20 108/60 95 11/14/17 14:59 11/14/17 15:59 11/14/17 15:59 11/14/17 15:59 11/14/17 10:00 CBC, BMP 11/14/17 06:30 11/14/17 06:30 Current Medications Generic Name Dose Route Start Last Admin Trade Name Freq PRN Reason Stop Dose Admin Aspirin 81 mg 11/13/17 10:00 11/14/17 10:05 Asa - PO 81 mg DAILY MAYELA Administration Cyclobenzaprine HCl 10 mg 11/12/17 14:00 11/14/17 18:12 Flexeril - PO 10 mg QID MAYELA Administration Enoxaparin Sodium 40 mg 11/12/17 22:00 11/14/17 10:06 Lovenox - SQ 40 mg BID MAYELA Administration Folic Acid 1 mg 11/12/17 13:00 11/14/17 10:05 Folic Acid - PO 1 mg DAILY MAYELA Administration Gabapentin 600 mg 11/12/17 18:00 11/14/17 18:12 Neurontin - PO 600 mg Q6HPO MAYELA Administration Hydroxyurea 1,000 mg 11/13/17 10:00 11/14/17 10:05 Hydrea - PO 1,000 mg DAILY MAYELA Administration Sodium Chloride 1,000 mls @ 150 mls/hr 11/12/17 12:30 11/14/17 18:41 Normal Saline - IV 150 mls/hr ASDIR MAYELA Administration Levofloxacin 500 mg in 100 mls @ 100 mls/hr 11/14/17 16:00 11/14/17 16:13 Levaquin 500 Mg Premixed Ivpb - IVPB 100 mls/hr DAILY MAYELA Administration Morphine Sulfate 3 mg 11/14/17 15:00 11/14/17 16:07 Morphine Injection - IVPUSH 3 mg Q3H PRN Administration PAIN Multivitamins/Minerals/Vitamin C 1 tab 11/13/17 10:00 11/14/17 10:05 Tab-A-Vit - PO 1 tab DAILY MAYELA Administration Sickle cell crisis: agree with fluids/pain control/spirometry/folic acid/hydrea f/u with Dr. Crow as outpatient Monitor hemolysis labs , monitor vitakls has OP f.u with ortho for AVN and also has an upcoming SCT evaluation at [facility] Hx of DVT Diagnosed in 2009, 2015, patient reports she is on Lovenox 40mg sq bid requesting HIV to be tested.
[2017-11-14] MEDS ORDERED: ALBUTEROL SO4 2.5/IPRATROPIUM 0.5 INH SOL 3 ML VIAL.NEB. NEB ONE (20:17)
[2017-11-15] MEDS: GABAPENTIN 300 MG CAPSULE (FP) PO SCH ×5 (00:09→23:47)
[2017-11-15] MEDS: SODIUM CHLORIDE 1,000 ML IV SCH ×3 (01:10→14:34)
[2017-11-15] MEDS: morphine CARPU-JECT 10 MG/1 ML DISP.SYRIN IVPUSH PRN ×7 (03:27→23:46)
[2017-11-15 08:09] LABS: ALBUMIN 3.5 g/dl (3.4-5.0); ANION GAP 7 (8-16); BLOOD UREA NITROGEN 7 mg/dL (7-18); CALCIUM 8.1 mg/dL (8.5-10.1); CHLORIDE 109 mmol/L (98-107); CO2 24 mmol/L (21-32); CREATININE 0.6 mg/dL (0.55-1.02); GLUCOSE,RANDOM 94 mg/dL (74-106); LDH 215 U/L (84-246); POTASSIUM 4.1 mmol/L (3.5-5.1); SGOT/AST 31 U/L (15-37); SGPT/ALT 55 U/L (12-78); SODIUM 140 mmol/L (136-145)
[2017-11-15 08:11] LABS: ALK PHOS 104 U/L (45-117); BILIRUBIN,TOTAL 2.8 mg/dL (0.2-1.0); TOT PROT 6.7 g/dl (6.4-8.2)
[2017-11-15 08:29] LABS: HEMATOCRIT 26.4 % (32.4-45.2); HEMOGLOBIN 8.8 GM/dL (10.7-15.3); MCH 37.5 pg (25.7-33.7); MCHC 33.4 g/dl (32.0-36.0); MEAN CELL VOLUME 112.4 fl (80-96); MEAN PLT VOLUME 7.8 fl (7.5-11.1); PLATELET COUNT 370 K/MM3 (134-434); RBC 2.35 M/mm3 (3.60-5.2); RDW 17.8 % (11.6-15.6); RETICULOCYTES 10.72 % (0.5-1.5); WHITE BLOOD COUNT 13.2 K/mm3 (4.0-10.0)
[2017-11-15] MEDS: FOLIC ACID 1 MG TABLET (FP) PO SCH (10:13)
[2017-11-15] MEDS: LEVOFLOXACIN 500 MG IVPB 500 MG/100 ML BAG IVPB SCH (10:13)
[2017-11-15] MEDS: CYCLOBENZAPRINE HCL 10 MG TABLET (FP) PO SCH ×4 (10:13→21:55)
[2017-11-15] MEDS: HYDROXYUREA 500 MG CAPSULE PO SCH (10:13)
[2017-11-15] MEDS: ASPIRIN 81 MG CHEWABLE TABLETS PO SCH (10:13)
[2017-11-15] MEDS: MULTIVITAMINS (DAILY MVI) TABLET (FP) PO SCH (10:13)
[2017-11-15] MEDS: ENOXAPARIN NA (PORCINE) 40 MG/0.4 ML DISP.SYRIN SQ SCH ×2 (10:13→21:56)
--- NOTE | 2017-11-15 13:11 | PN ---
Progress Note (short form) - Note Progress Note: Patient seen and examined this am. appears comfortable than the past few days, continues to complain of pain.. Noted for a pain mgmt consult by primary [facility] O/E: General: NAD Cor: RSR, No murmurs, No gallops Lungs: Clear to P&A Abd: Soft, Normal bowel sounds, No organomegaly Ext:No significant edema Last Vital Signs Temp Pulse Resp BP Pulse Ox 98.0 F 84 18 100/54 97 11/15/17 05:56 11/15/17 05:56 11/15/17 05:56 11/15/17 05:56 11/14/17 21:00 CBC, BMP 11/15/17 06:50 11/15/17 06:50 Current Medications Generic Name Dose Route Start Last Admin Trade Name Freq PRN Reason Stop Dose Admin Aspirin 81 mg 11/13/17 10:00 11/15/17 10:13 Asa - PO 81 mg DAILY MAYELA Administration Cyclobenzaprine HCl 10 mg 11/12/17 14:00 11/15/17 10:13 Flexeril - PO 10 mg QID MAYELA Administration Enoxaparin Sodium 40 mg 11/12/17 22:00 11/15/17 10:13 Lovenox - SQ 40 mg BID MAYELA Administration Folic Acid 1 mg 11/12/17 13:00 11/15/17 10:13 Folic Acid - PO 1 mg DAILY MAYELA Administration Gabapentin 600 mg 11/12/17 18:00 11/15/17 07:09 Neurontin - PO 600 mg Q6HPO MAYELA Administration Hydroxyurea 1,000 mg 11/13/17 10:00 11/15/17 10:13 Hydrea - PO 1,000 mg DAILY MAYELA Administration Sodium Chloride 1,000 mls @ 150 mls/hr 11/12/17 12:30 11/15/17 07:10 Normal Saline - IV 150 mls/hr ASDIR MAYELA Administration Levofloxacin 500 mg in 100 mls @ 100 mls/hr 11/14/17 16:00 11/15/17 10:13 Levaquin 500 Mg Premixed Ivpb - IVPB 100 mls/hr DAILY MAYELA Administration Morphine Sulfate 3 mg 11/14/17 15:00 11/15/17 10:29 Morphine Injection - IVPUSH 3 mg Q3H PRN Administration PAIN Multivitamins/Minerals/Vitamin C 1 tab 11/13/17 10:00 11/15/17 10:13 Tab-A-Vit - PO 1 tab DAILY MAYELA Administration Sickle cell crisis: simple VOC crisis continue supportive care noted Hgb slightly down trended, will continue to monitor, rest of the parameters acceptable c/w hydrea f/u with Dr. Crow as outpatient pain mgmt to see her. has OP f.u with ortho for AVN and also has an upcoming SCT evaluation at [facility] Hx of DVT Diagnosed in 2009, 2015, patient reports she is on Lovenox 40mg sq bid
--- NOTE | 2017-11-15 19:59 | PN ---
Physical Exam: SUBJECTIVE: Patient seen and examined at bedside. Pain is concentrated mainly in legs. OBJECTIVE: Vital Signs Period Temp Pulse Resp BP Sys/Oliveira Pulse Ox Last 24 Hr 98.0 F-98.9 F 84-103 18-22 100-124/54-66 97-97 GENERAL: The patient is awake, alert, and fully oriented, in mild distress secondary to pain. LUNGS: Breath sounds equal, clear to auscultation bilaterally, no wheezes, no crackles, no accessory muscle use. HEART: Regular rate and rhythm, S1, S2 without murmur, rub or gallop. ABDOMEN: Soft, nontender, nondistended, normoactive bowel sounds, no guarding, no rebound. Palpable spleen. EXTREMITIES: 2+ pulses, warm, well-perfused, no edema. NEUROLOGICAL: Cranial nerves II through XII grossly intact. Normal speech, moves all extremities freely. Positions in bed without difficulty. SKIN: Warm, dry, normal turgor Laboratory Results - last 24 hr 11/15/17 11/15/17 11/15/17 06:50 06:50 06:50 WBC 13.2 H RBC 2.35 L Hgb 8.8 L Hct 26.4 L MCV 112.4 H MCH 37.5 H MCHC 33.4 RDW 17.8 H Plt Count 370 MPV 7.8 Retic Count 10.72 H* D Sodium 140 Potassium 4.1 Chloride 109 H Carbon Dioxide 24 Anion Gap 7 L BUN 7 Creatinine 0.6 Creat Clearance w eGFR > 60 Random Glucose 94 Calcium 8.1 L Total Bilirubin 2.8 H AST 31 ALT 55 Alkaline Phosphatase 104 LD Total 215 Total Protein 6.7 Albumin 3.5 HIV 1&2 Antibody Screen Negative HIV P24 Antigen Negative Active Medications Generic Name Dose Route Start Last Admin Trade Name Freq PRN Reason Stop Dose Admin Aspirin 81 mg 11/13/17 10:00 11/15/17 10:13 Asa - PO 81 mg DAILY [facility] Administration Cyclobenzaprine HCl 10 mg 11/12/17 14:00 11/15/17 18:06 Flexeril - PO 10 mg QID MAYELA Administration Enoxaparin Sodium 40 mg 11/12/17 22:00 11/15/17 10:13 Lovenox - SQ 40 mg BID MAYELA Administration Folic Acid 1 mg 11/12/17 13:00 11/15/17 10:13 Folic Acid - PO 1 mg DAILY MAYELA Administration Gabapentin 600 mg 11/12/17 18:00 11/15/17 18:06 Neurontin - PO 600 mg Q6HPO MAYELA Administration Hydroxyurea 1,000 mg 11/13/17 10:00 11/15/17 10:13 Hydrea - PO 1,000 mg DAILY MAYELA Administration Sodium Chloride 1,000 mls @ 150 mls/hr 11/12/17 12:30 11/15/17 14:34 Normal Saline - IV Not Given ASDIR MAYELA Levofloxacin 500 mg in 100 mls @ 100 mls/hr 11/14/17 16:00 11/15/17 10:13 Levaquin 500 Mg Premixed Ivpb - IVPB 100 mls/hr DAILY MAYELA Administration Morphine Sulfate 3 mg 11/14/17 15:00 11/15/17 16:10 Morphine Injection - IVPUSH 3 mg Q3H PRN Administration PAIN Multivitamins/Minerals/Vitamin C 1 tab 11/13/17 10:00 11/15/17 10:13 Tab-A-Vit - PO 1 tab DAILY MAYELA Administration ASSESSMENT/PLAN 22 year-old female with PMH significant for sickle cell disease (SS type on electrophoresis in 2012), acute chest syndrome 10/20 s/p exchange transfusion, and h/o DVT on Lovenox. Admitted for sickle cell crisis and UTI. Sickle cell crisis --spleen palpable on exam --retic count 10.72 --Hgb 8.8, stable --continue hydroxyurea, flexeril, IV fluids, morphine PRN, gabapentin --hematology following UTI --pyuria, culture pending --continue levofloxacin (day #2) Chest pain --troponins neg x 3 --serial ECGs not suggestive of ischemic event --likely related to sickle cell crisis H/o DVT --diagnosed in 2009, 2015, continue Lovenox 40mg BID --lower extremity doppler negative for DVT FEN Fluids: NS @ 150mL/hr Electrolytes: replete as indicated Nutrition: regular diet Daily physical therapy DVT prophylaxis: on full dose lovenox Dispo: continues to require inpatient care. Full code. Visit type - Emergency Visit Emergency Visit: Yes ED Registration Date: 11/13/17 Care time: The patient presented to the Emergency Department on the above date and was hospitalized for further evaluation of their emergent condition. - New Patient This patient is new to me today: Yes Date on this admission: 11/17/17 - Critical Care Critical Care patient: No
[2017-11-15] MEDS ORDERED: diphenhydrAMINE HCL 25 MG CAPSULE (FP) PO ONE (21:45)
[2017-11-16] MEDS: morphine CARPU-JECT 10 MG/1 ML DISP.SYRIN IVPUSH PRN ×6 (03:01→21:54)
[2017-11-16] MEDS: GABAPENTIN 300 MG CAPSULE (FP) PO SCH ×3 (06:15→18:05)
--- NOTE | 2017-11-16 09:43 | PN ---
Physical Exam: SUBJECTIVE: Patient seen and examined. Appears slightly more comfortable today. OBJECTIVE: Vital Signs Period Temp Pulse Resp BP Sys/Oliveira Pulse Ox Last 24 Hr 97.9 F-98.4 F 83-97 16-22 97-118/59-70 98 GENERAL: The patient is awake, alert, and fully oriented, in mild distress secondary to pain. LUNGS: Breath sounds equal, clear to auscultation bilaterally, no wheezes, no crackles, no accessory muscle use. HEART: Regular rate and rhythm, S1, S2 without murmur, rub or gallop. ABDOMEN: Soft, nontender, nondistended, normoactive bowel sounds, no guarding, no rebound. Palpable spleen. EXTREMITIES: 2+ pulses, warm, well-perfused, no edema. NEUROLOGICAL: Cranial nerves II through XII grossly intact. Normal speech, moves all extremities freely. Positions in bed without difficulty. SKIN: Warm, dry, normal turgor Laboratory Results - last 24 hr 11/15/17 06:50 HIV 1&2 Antibody Screen Negative HIV P24 Antigen Negative Active Medications Generic Name Dose Route Start Last Admin Trade Name Freq PRN Reason Stop Dose Admin Aspirin 81 mg 11/13/17 10:00 11/15/17 10:13 Asa - PO 81 mg DAILY MAYELA Administration Cyclobenzaprine HCl 10 mg 11/12/17 14:00 11/15/17 21:55 Flexeril - PO 10 mg QID MAYELA Administration Enoxaparin Sodium 40 mg 11/12/17 22:00 11/15/17 21:56 Lovenox - SQ 40 mg BID MAYELA Administration Folic Acid 1 mg 11/12/17 13:00 11/15/17 10:13 Folic Acid - PO 1 mg DAILY MAYELA Administration Gabapentin 600 mg 11/12/17 18:00 11/16/17 06:15 Neurontin - PO 600 mg Q6HPO MAYELA Administration Hydroxyurea 1,000 mg 11/13/17 10:00 11/15/17 10:13 Hydrea - PO 1,000 mg DAILY MAYELA Administration Sodium Chloride 1,000 mls @ 150 mls/hr 11/12/17 12:30 11/15/17 14:34 Normal Saline - IV Not Given ASDIR MAYELA Levofloxacin 500 mg in 100 mls @ 100 mls/hr 11/14/17 16:00 11/15/17 10:13 Levaquin 500 Mg Premixed Ivpb - IVPB 100 mls/hr DAILY MAYELA Administration Morphine Sulfate 3 mg 11/14/17 15:00 11/16/17 06:15 Morphine Injection - IVPUSH 3 mg Q3H PRN Administration PAIN Multivitamins/Minerals/Vitamin C 1 tab 11/13/17 10:00 11/15/17 10:13 Tab-A-Vit - PO 1 tab DAILY MAYELA Administration ASSESSMENT/PLAN: 22 year-old female with PMH significant for sickle cell disease (SS type on electrophoresis in 2012), acute chest syndrome 10/20 s/p exchange transfusion, and h/o DVT on Lovenox. Admitted for sickle cell crisis and UTI. Sickle cell crisis --spleen palpable on exam --retic count 10.72 --Hgb 8.6, stable --continue hydroxyurea, flexeril, IV fluids, morphine PRN, gabapentin --hematology following UTI --pyuria, culture pending --continue levofloxacin (day #2) Chest pain --troponins neg x 3 --serial ECGs not suggestive of ischemic event --likely related to sickle cell crisis H/o DVT --diagnosed in 2009, 2015, continue Lovenox 40mg BID --lower extremity doppler negative for DVT FEN Fluids: NS @ 150mL/hr Electrolytes: replete as indicated Nutrition: regular diet Daily physical therapy DVT prophylaxis: on full dose lovenox Dispo: continues to require inpatient care. Full code. Visit type - Emergency Visit Emergency Visit: Yes ED Registration Date: 11/13/17 Care time: The patient presented to the Emergency Department on the above date and was hospitalized for further evaluation of their emergent condition. - New Patient This patient is new to me today: No - Critical Care Critical Care patient: No
[2017-11-16] MEDS: HYDROXYUREA 500 MG CAPSULE PO SCH (11:19)
[2017-11-16] MEDS: CYCLOBENZAPRINE HCL 10 MG TABLET (FP) PO SCH ×4 (11:19→21:56)
[2017-11-16] MEDS: FOLIC ACID 1 MG TABLET (FP) PO SCH (11:19)
[2017-11-16] MEDS: ASPIRIN 81 MG CHEWABLE TABLETS PO SCH (11:19)
[2017-11-16] MEDS: ENOXAPARIN NA (PORCINE) 40 MG/0.4 ML DISP.SYRIN SQ SCH ×2 (11:20→21:57)
[2017-11-16] MEDS: LEVOFLOXACIN 500 MG IVPB 500 MG/100 ML BAG IVPB SCH (11:21)
--- NOTE | 2017-11-16 11:57 | PN ---
Progress Note (short form) - Note Progress Note: Patient seen and examined this am. feels about the same. O/E: General: NAD Cor: RSR, No murmurs, No gallops Lungs: Clear to P&A Abd: Soft, Normal bowel sounds, No organomegaly Ext:No significant edema Last Vital Signs Temp Pulse Resp BP Pulse Ox 98.7 F 91 H 20 109/60 98 11/16/17 10:00 11/16/17 10:00 11/16/17 10:00 11/16/17 10:00 11/15/17 21:00 Current Medications Generic Name Dose Route Start Last Admin Trade Name Freq PRN Reason Stop Dose Admin Aspirin 81 mg 11/13/17 10:00 11/16/17 11:19 Asa - PO 81 mg DAILY MAYELA Administration Cyclobenzaprine HCl 10 mg 11/12/17 14:00 11/16/17 11:19 Flexeril - PO 10 mg QID MAYELA Administration Enoxaparin Sodium 40 mg 11/12/17 22:00 11/16/17 11:20 Lovenox - SQ 40 mg BID MAYELA Administration Folic Acid 1 mg 11/12/17 13:00 11/16/17 11:19 Folic Acid - PO 1 mg DAILY MAYELA Administration Gabapentin 600 mg 11/12/17 18:00 11/16/17 06:15 Neurontin - PO 600 mg Q6HPO MAYELA Administration Hydroxyurea 1,000 mg 11/13/17 10:00 11/16/17 11:19 Hydrea - PO 1,000 mg DAILY MAYELA Administration Sodium Chloride 1,000 mls @ 150 mls/hr 11/12/17 12:30 11/15/17 14:34 Normal Saline - IV Not Given ASDIR MAYELA Levofloxacin 500 mg in 100 mls @ 100 mls/hr 11/14/17 16:00 11/16/17 11:21 Levaquin 500 Mg Premixed Ivpb - IVPB 100 mls/hr DAILY MAYELA Administration Morphine Sulfate 3 mg 11/14/17 15:00 11/16/17 10:19 Morphine Injection - IVPUSH 3 mg Q3H PRN Administration PAIN Multivitamins/Minerals/Vitamin C 1 tab 11/13/17 10:00 11/15/17 10:13 Tab-A-Vit - PO 1 tab DAILY MAYELA Administration Sickle cell crisis: simple VOC crisis hgb noted/retic count noted/bili is improving. AST 40 will continue close monitroing for now. T/S ordered for tomorrow labs for tomorrow ,to be considered for transfusion c/w hydrea, folate OP . also has SCT appt at [facility] Hx of DVT Diagnosed in 2009, 2015, patient reports she is on Lovenox 40mg sq bid
[2017-11-16 11:59] LABS: EOS % 3.6 % (0-4.5); HEMATOCRIT 25.8 % (32.4-45.2); HEMOGLOBIN 8.6 GM/dL (10.7-15.3); LYMPH % 39.2 % (8-40); MCH 37.7 pg (25.7-33.7); MCHC 33.4 g/dl (32.0-36.0); MEAN CELL VOLUME 112.7 fl (80-96); MEAN PLT VOLUME 7.9 fl (7.5-11.1); MONO % 9.4 % (3.8-10.2); NEUT % 46.8 % (42.8-82.8); PLATELET COUNT 388 K/MM3 (134-434); RBC 2.29 M/mm3 (3.60-5.2); RDW 17.2 % (11.6-15.6); WHITE BLOOD COUNT 11.2 K/mm3 (4.0-10.0)
[2017-11-16] MEDS: SODIUM CHLORIDE 1,000 ML IV SCH (12:28)
[2017-11-16 12:33] LABS: ALBUMIN 3.6 g/dl (3.4-5.0); ANION GAP 9 (8-16); BLOOD UREA NITROGEN 4 mg/dL (7-18); CALCIUM 8.3 mg/dL (8.5-10.1); CHLORIDE 105 mmol/L (98-107); CO2 26 mmol/L (21-32); CREATININE 0.4 mg/dL (0.55-1.02); GLUCOSE,RANDOM 80 mg/dL (74-106); MAGNESIUM 1.9 mg/dL (1.8-2.4); POTASSIUM 4.3 mmol/L (3.5-5.1); SGOT/AST 40 U/L (15-37); SGPT/ALT 57 U/L (12-78); SODIUM 140 mmol/L (136-145)
[2017-11-16 12:36] LABS: ALK PHOS 112 U/L (45-117); BILIRUBIN,TOTAL 1.9 mg/dL (0.2-1.0); TOT PROT 6.6 g/dl (6.4-8.2)
[2017-11-16] MEDS: MULTIVITAMINS (DAILY MVI) TABLET (FP) PO SCH (14:06)
[2017-11-17] MEDS: GABAPENTIN 300 MG CAPSULE (FP) PO SCH ×5 (01:00→23:48)
[2017-11-17] MEDS: morphine CARPU-JECT 10 MG/1 ML DISP.SYRIN IVPUSH PRN ×5 (01:35→20:51)
[2017-11-17] MEDS ORDERED: diphenhydrAMINE HCL 25 MG CAPSULE (FP) PO ONE (03:30)
[2017-11-17 07:21] LABS: BASO % 1.1 % (0-2.0); EOS % 4.6 % (0-4.5); HEMATOCRIT 26.1 % (32.4-45.2); HEMOGLOBIN 8.9 GM/dL (10.7-15.3); LYMPH % 48.4 % (8-40); MCH 38.2 pg (25.7-33.7); MCHC 34.1 g/dl (32.0-36.0); MEAN PLT VOLUME 7.4 fl (7.5-11.1); MONO % 6.5 % (3.8-10.2); NEUT % 39.4 % (42.8-82.8); PLATELET COUNT 382 K/MM3 (134-434); RBC 2.33 M/mm3 (3.60-5.2); RETICULOCYTES 10.81 % (0.5-1.5); WHITE BLOOD COUNT 11.5 K/mm3 (4.0-10.0)
[2017-11-17 07:49] LABS: ALBUMIN 3.5 g/dl (3.4-5.0); ANION GAP 8 (8-16); BLOOD UREA NITROGEN 5 mg/dL (7-18); CALCIUM 8.1 mg/dL (8.5-10.1); CHLORIDE 108 mmol/L (98-107); CO2 23 mmol/L (21-32); GLUCOSE,RANDOM 86 mg/dL (74-106); POTASSIUM 4.1 mmol/L (3.5-5.1); SODIUM 139 mmol/L (136-145)
[2017-11-17 07:55] LABS: ALK PHOS 107 U/L (45-117); BILIRUBIN,TOTAL 2.2 mg/dL (0.2-1.0); CREATININE 0.5 mg/dL (0.55-1.02); LDH 234 U/L (84-246); SGOT/AST 35 U/L (15-37); SGPT/ALT 56 U/L (12-78); TOT PROT 6.5 g/dl (6.4-8.2)
[2017-11-17] MEDS ORDERED: morphine CARPU-JECT 10 MG/1 ML DISP.SYRIN IVPUSH ONE (09:30)
[2017-11-17] MEDS ORDERED: PT OWN MED DRAWER 7, Y5N ONE (09:36)
[2017-11-17] MEDS: ENOXAPARIN NA (PORCINE) 40 MG/0.4 ML DISP.SYRIN SQ SCH ×2 (09:40→21:02)
[2017-11-17] MEDS: ASPIRIN 81 MG CHEWABLE TABLETS PO SCH (09:40)
[2017-11-17] MEDS: HYDROXYUREA 500 MG CAPSULE PO SCH (09:41)
[2017-11-17] MEDS: MULTIVITAMINS (DAILY MVI) TABLET (FP) PO SCH (09:41)
[2017-11-17] MEDS: CYCLOBENZAPRINE HCL 10 MG TABLET (FP) PO SCH ×4 (09:41→21:02)
[2017-11-17] MEDS: FOLIC ACID 1 MG TABLET (FP) PO SCH (09:41)
[2017-11-17] MEDS: SODIUM CHLORIDE 1,000 ML IV SCH ×2 (09:43→16:54)
[2017-11-17] MEDS: LEVOFLOXACIN 500 MG IVPB 500 MG/100 ML BAG IVPB SCH (09:44)
[2017-11-17] MEDS: POLYETHYLENE GLYCOL 3350 119 GM BTL PO SCH ×2 (12:16→21:05)
--- NOTE | 2017-11-17 12:33 | PN ---
Physical Exam: SUBJECTIVE: Patient seen and examined. Distressed. Woke up this morning with full body pain. Shared with Dr. Gauthier fears she might be . OBJECTIVE: Vital Signs Period Temp Pulse Resp BP Sys/Oliveira Pulse Ox Last 24 Hr 98.1 F-98.6 F 80-98 18-20 108-117/59-72 97 GENERAL: The patient is awake, alert, and fully oriented, in mild distress secondary to pain. LUNGS: Breath sounds equal, clear to auscultation bilaterally, no wheezes, no crackles, no accessory muscle use. HEART: Regular rate and rhythm, S1, S2 without murmur, rub or gallop. ABDOMEN: Soft, nontender, nondistended, normoactive bowel sounds, no guarding, no rebound. Palpable spleen. EXTREMITIES: 2+ pulses, warm, well-perfused, no edema. NEUROLOGICAL: Cranial nerves II through XII grossly intact. Normal speech, moves all extremities freely. Positions in bed without difficulty. SKIN: Warm, dry, normal turgor Laboratory Results - last 24 hr 11/16/17 11/17/17 11/17/17 10:40 07:00 07:00 WBC 11.5 H RBC 2.33 L Hgb 8.9 L Hct 26.1 L MCV 112.0 H MCH 38.2 H MCHC 34.1 RDW 18.0 H Plt Count 382 MPV 7.4 L Neutrophils % 39.4 L Lymphocytes % 48.4 H D Monocytes % 6.5 Eosinophils % 4.6 H Basophils % 1.1 Retic Count 10.81 H* Sodium 140 Potassium 4.3 Chloride 105 Carbon Dioxide 26 Anion Gap 9 BUN 4 L Creatinine 0.4 L Creat Clearance w eGFR > 60 Random Glucose 80 Calcium 8.3 L Magnesium 1.9 Total Bilirubin 1.9 H D AST 40 H D ALT 57 Alkaline Phosphatase 112 LD Total Total Protein 6.6 Albumin 3.6 Blood Type B POSITIVE Antibody Screen Negative 11/17/17 07:00 WBC RBC Hgb Hct MCV MCH MCHC RDW Plt Count MPV Neutrophils % Lymphocytes % Monocytes % Eosinophils % Basophils % Retic Count Sodium 139 Potassium 4.1 Chloride 108 H Carbon Dioxide 23 Anion Gap 8 BUN 5 L Creatinine 0.5 L Creat Clearance w eGFR > 60 Random Glucose 86 Calcium 8.1 L Magnesium Total Bilirubin 2.2 H AST 35 ALT 56 Alkaline Phosphatase 107 LD Total 234 Total Protein 6.5 Albumin 3.5 Blood Type Antibody Screen Active Medications Generic Name Dose Route Start Last Admin Trade Name Freq PRN Reason Stop Dose Admin Aspirin 81 mg 11/13/17 10:00 11/17/17 09:40 Asa - PO 81 mg DAILY MAYELA Administration Cyclobenzaprine HCl 10 mg 11/12/17 14:00 11/17/17 09:41 Flexeril - PO 10 mg QID MAYELA Administration Docusate Sodium 300 mg 11/17/17 22:00 Colace - PO HS MAYELA Enoxaparin Sodium 40 mg 11/12/17 22:00 11/17/17 09:40 Lovenox - SQ 40 mg BID MAYELA Administration Folic Acid 1 mg 11/12/17 13:00 11/17/17 09:41 Folic Acid - PO 1 mg DAILY MAYELA Administration Gabapentin 600 mg 11/12/17 18:00 11/17/17 12:15 Neurontin - PO 600 mg Q6HPO MAYELA Administration Hydroxyurea 1,000 mg 11/13/17 10:00 11/17/17 09:41 Hydrea - PO 1,000 mg DAILY MAYELA Administration Sodium Chloride 1,000 mls @ 150 mls/hr 11/12/17 12:30 11/17/17 09:43 Normal Saline - IV 150 mls/hr ASDIR MAYELA Administration Levofloxacin 500 mg in 100 mls @ 100 mls/hr 11/14/17 16:00 11/17/17 09:44 Levaquin 500 Mg Premixed Ivpb - IVPB 100 mls/hr DAILY MAYELA Administration Morphine Sulfate 3 mg 11/14/17 15:00 11/17/17 06:41 Morphine Injection - IVPUSH 3 mg Q3H PRN Administration PAIN Multivitamins/Minerals/Vitamin C 1 tab 11/13/17 10:00 11/17/17 09:41 Tab-A-Vit - PO 1 tab DAILY MAYELA Administration Polyethylene Glycol 17 gm 11/17/17 10:00 11/17/17 12:16 Miralax (For Daily Use) - PO Not Given BID [facility] Microbiology 11/14/17 15:45 Urine - Urine Clean Catch Urine Culture - Final Escherichia Coli ASSESSMENT/PLAN 22 year-old female with PMH significant for sickle cell disease (SS type on electrophoresis in 2012), acute chest syndrome 10/20 s/p exchange transfusion, and h/o DVT on Lovenox. Admitted for sickle cell crisis and UTI. Sickle cell crisis --retic count 10.81 --Hgb 8.9, stable --continue hydroxyurea, folate, flexeril, IV fluids, morphine PRN, gabapentin --hematology following E. coli UTI --continue levofloxacin (day #4) Chest pain --troponins neg x 3 --serial ECGs not suggestive of ischemic event --likely related to sickle cell crisis H/o DVT --diagnosed in 2009, 2015, continue Lovenox 40mg BID --lower extremity doppler negative for DVT r/o --Urine HCG qualitative ordered FEN Fluids: NS @ 150mL/hr Electrolytes: replete as indicated Nutrition: regular diet Daily physical therapy DVT prophylaxis: on full dose lovenox Dispo: continues to require inpatient care. Full code. Visit type - Emergency Visit Emergency Visit: Yes ED Registration Date: 11/13/17 Care time: The patient presented to the Emergency Department on the above date and was hospitalized for further evaluation of their emergent condition. - New Patient This patient is new to me today: No - Critical Care Critical Care patient: No
--- NOTE | 2017-11-17 12:58 | PN ---
Progress Note (short form) - Note Progress Note: Patient seen and examined this am. She has more pains today She is afraid she might be She has no other symptoms or signs of infection O/E: General: NAD Cor: RSR, No murmurs, No gallops Lungs: Clear to P&A Abd: Soft, Normal bowel sounds, No organomegaly Ext:No significant edema Vital Signs Period Temp Pulse Resp BP Sys/Oliveira Pulse Ox Last 24 Hr 98.1 F-98.6 F 80-98 18-20 108-117/59-72 97 Active Medications Generic Name Dose Route Start Last Admin Trade Name Freq PRN Reason Stop Dose Admin Aspirin 81 mg 11/13/17 10:00 11/17/17 09:40 Asa - PO 81 mg DAILY MAYELA Administration Cyclobenzaprine HCl 10 mg 11/12/17 14:00 11/17/17 09:41 Flexeril - PO 10 mg QID MAYELA Administration Docusate Sodium 300 mg 11/17/17 22:00 Colace - PO HS MAYELA Enoxaparin Sodium 40 mg 11/12/17 22:00 11/17/17 09:40 Lovenox - SQ 40 mg BID MAYELA Administration Folic Acid 1 mg 11/12/17 13:00 11/17/17 09:41 Folic Acid - PO 1 mg DAILY MAYELA Administration Gabapentin 600 mg 11/12/17 18:00 11/17/17 12:15 Neurontin - PO 600 mg Q6HPO MAYELA Administration Hydroxyurea 1,000 mg 11/13/17 10:00 11/17/17 09:41 Hydrea - PO 1,000 mg DAILY MAYELA Administration Sodium Chloride 1,000 mls @ 150 mls/hr 11/12/17 12:30 11/17/17 09:43 Normal Saline - IV 150 mls/hr ASDIR MAYELA Administration Levofloxacin 500 mg in 100 mls @ 100 mls/hr 11/14/17 16:00 11/17/17 09:44 Levaquin 500 Mg Premixed Ivpb - IVPB 100 mls/hr DAILY [facility]ELA Administration Morphine Sulfate 3 mg 11/14/17 15:00 11/17/17 06:41 Morphine Injection - IVPUSH 3 mg Q3H PRN Administration PAIN Multivitamins/Minerals/Vitamin C 1 tab 11/13/17 10:00 01/13/18 09:41 Tab-A-Vit - PO 1 tab DAILY MAYELA Administration Polyethylene Glycol 17 gm 11/17/17 10:00 11/17/17 12:16 Miralax (For Daily Use) - PO Not Given BID MAYELA CBC, BMP 11/17/17 07:00 11/17/17 07:00 Sickle cell crisis: simple VOC crisis hgb noted/retic count noted/bili is improving. AST 40 labs for tomorrow ,no need for transfusion c/w hydrea, folate on levofloxacin OP . also has SCT appt at [facility] Hx of DVT Diagnosed in 2009, 2015, patient reports she is on Lovenox 40mg sq bid
[2017-11-17] MEDS: DOCUSATE SODIUM 100 MG CAPSULE (FP) PO SCH (21:02)
[2017-11-18] MEDS: morphine CARPU-JECT 10 MG/1 ML DISP.SYRIN IVPUSH PRN ×4 (01:31→13:43)
[2017-11-18] MEDS: GABAPENTIN 300 MG CAPSULE (FP) PO SCH ×3 (06:41→18:14)
[2017-11-18 09:43] LABS: HEMATOCRIT 28.1 % (32.4-45.2); HEMOGLOBIN 9.5 GM/dL (10.7-15.3); LYMPH % 39.8 % (8-40); MCHC 33.8 g/dl (32.0-36.0); MEAN CELL VOLUME 112.5 fl (80-96); MEAN PLT VOLUME 7.4 fl (7.5-11.1); MONO % 5.5 % (3.8-10.2); NEUT % 49.7 % (42.8-82.8); PLATELET COUNT 413 K/MM3 (134-434); RDW 17.9 % (11.6-15.6)
[2017-11-18] MEDS: ASPIRIN 81 MG CHEWABLE TABLETS PO SCH (10:08)
[2017-11-18] MEDS: FOLIC ACID 1 MG TABLET (FP) PO SCH (10:08)
[2017-11-18] MEDS: CYCLOBENZAPRINE HCL 10 MG TABLET (FP) PO SCH ×4 (10:08→22:01)
[2017-11-18] MEDS: MULTIVITAMINS (DAILY MVI) TABLET (FP) PO SCH (10:09)
[2017-11-18] MEDS: HYDROXYUREA 500 MG CAPSULE PO SCH (10:09)
[2017-11-18] MEDS: LEVOFLOXACIN 500 MG IVPB 500 MG/100 ML BAG IVPB SCH (10:09)
[2017-11-18] MEDS: ENOXAPARIN NA (PORCINE) 40 MG/0.4 ML DISP.SYRIN SQ SCH ×2 (10:09→22:01)
[2017-11-18 10:11] LABS: ALBUMIN 3.9 g/dl (3.4-5.0); ANION GAP 6 (8-16); BILIRUBIN,TOTAL 2.1 mg/dL (0.2-1.0); BLOOD UREA NITROGEN 6 mg/dL (7-18); CALCIUM 8.3 mg/dL (8.5-10.1); CHLORIDE 106 mmol/L (98-107); CO2 28 mmol/L (21-32); CREATININE 0.6 mg/dL (0.55-1.02); GLUCOSE,RANDOM 94 mg/dL (74-106); MAGNESIUM 1.9 mg/dL (1.8-2.4); PHOSPHOROUS 4.3 mg/dL (2.5-4.9); SGOT/AST 47 U/L (15-37); SGPT/ALT 69 U/L (12-78); SODIUM 140 mmol/L (136-145); TOT PROT 7.2 g/dl (6.4-8.2)
[2017-11-18] MEDS: POLYETHYLENE GLYCOL 3350 119 GM BTL PO SCH ×2 (10:12→22:02)
[2017-11-18 10:13] LABS: ALK PHOS 122 U/L (45-117)
--- NOTE | 2017-11-18 11:27 | PN ---
Physical Exam: SUBJECTIVE: Patient seen and examined OBJECTIVE: Vital Signs Period Temp Pulse Resp BP Sys/Oliveira Pulse Ox Last 24 Hr 97.8 F-98.7 F 75-98 18-20 92-119/47-74 99 GENERAL: The patient is awake, alert, and fully oriented, in no acute distress. HEAD: Normal with no signs of trauma. EYES: PERRL, extraocular movements intact, sclera anicteric, conjunctiva clear. No ptosis. ENT: Ears normal, nares patent, oropharynx clear without exudates, moist mucous membranes. NECK: Trachea midline, full range of motion, supple. LUNGS: Breath sounds equal, clear to auscultation bilaterally, no wheezes, no crackles, no accessory muscle use. HEART: Regular rate and rhythm, S1, S2 without murmur, rub or gallop. ABDOMEN: Soft, nontender, nondistended, normoactive bowel sounds, no guarding, no rebound, no hepatosplenomegaly, no masses. EXTREMITIES: 2+ pulses, warm, well-perfused, no edema. NEUROLOGICAL: Cranial nerves II through XII grossly intact. Normal speech, gait not observed. PSYCH: Normal mood, normal affect. SKIN: Warm, dry, normal turgor, no rashes or lesions noted Laboratory Results - last 24 hr 11/17/17 11/18/17 11/18/17 17:40 09:00 09:00 WBC 11.0 H RBC 2.50 L Hgb 9.5 L Hct 28.1 L MCV 112.5 H MCH 38.0 H MCHC 33.8 RDW 17.9 H Plt Count 413 MPV 7.4 L Neutrophils % 49.7 D Lymphocytes % 39.8 Monocytes % 5.5 Eosinophils % 4.0 Basophils % 1.0 Sodium 140 Potassium 4.0 Chloride 106 Carbon Dioxide 28 D Anion Gap 6 L BUN 6 L Creatinine 0.6 Creat Clearance w eGFR > 60 Random Glucose 94 Calcium 8.3 L Phosphorus 4.3 Magnesium 1.9 Total Bilirubin 2.1 H AST 47 H D ALT 69 D Alkaline Phosphatase 122 H D Total Protein 7.2 Albumin 3.9 Urine HCG, Qual Negative Active Medications Generic Name Dose Route Start Last Admin Trade Name Freq PRN Reason Stop Dose Admin Aspirin 81 mg 11/13/17 10:00 11/18/17 10:08 Asa - PO 81 mg DAILY [facility]ELA Administration Cyclobenzaprine HCl 10 mg 11/12/17 14:00 11/18/17 10:08 Flexeril - PO 10 mg QID MAYELA Administration Docusate Sodium 300 mg 11/17/17 22:00 11/17/17 21:02 Colace - PO Not Given HS MAYELA Enoxaparin Sodium 40 mg 11/12/17 22:00 11/18/17 10:09 Lovenox - SQ 40 mg BID MAYELA Administration Folic Acid 1 mg 11/12/17 13:00 11/18/17 10:08 Folic Acid - PO 1 mg DAILY MAYELA Administration Gabapentin 600 mg 11/12/17 18:00 11/18/17 06:41 Neurontin - PO 600 mg Q6HPO MAYELA Administration Hydroxyurea 1,000 mg 11/13/17 10:00 11/18/17 10:09 Hydrea - PO 1,000 mg DAILY MAYELA Administration Sodium Chloride 1,000 mls @ 150 mls/hr 11/12/17 12:30 11/17/17 16:54 Normal Saline - IV 150 mls/hr ASDIR MAYELA Administration Levofloxacin 500 mg in 100 mls @ 100 mls/hr 11/14/17 16:00 11/18/17 10:09 Levaquin 500 Mg Premixed Ivpb - IVPB 100 mls/hr DAILY [facility]ELA Administration Morphine Sulfate 3 mg 11/14/17 15:00 11/18/17 10:09 Morphine Injection - IVPUSH 3 mg Q3H PRN Administration PAIN Multivitamins/Minerals/Vitamin C 1 tab 11/13/17 10:00 11/18/17 10:09 Tab-A-Vit - PO 1 tab DAILY MAYELA Administration Polyethylene Glycol 17 gm 11/17/17 10:00 11/18/17 10:12 Miralax (For Daily Use) - PO Not Given BID [facility] ASSESSMENT/PLAN:
--- NOTE | 2017-11-18 12:30 | PN ---
Progress Note (short form) - Note Progress Note: Patient seen and examined this am. Her pains are the same She is now complaining of a R. flank pain No dysuria Her urine HCG is negative She is afraid she might be She has no other symptoms or signs of infection O/E: General: NAD Cor: RSR, No murmurs, No gallops Lungs: Clear to P&A Abd: Soft, Normal bowel sounds, No organomegaly. No flank tenderness Ext:No significant edema Active Medications Generic Name Dose Route Start Last Admin Trade Name Freq PRN Reason Stop Dose Admin Aspirin 81 mg 11/13/17 10:00 11/18/17 10:08 Asa - PO 81 mg DAILY MAYELA Administration Cyclobenzaprine HCl 10 mg 11/12/17 14:00 11/18/17 10:08 Flexeril - PO 10 mg QID MAYELA Administration Docusate Sodium 300 mg 11/17/17 22:00 11/17/17 21:02 Colace - PO Not Given HS MAYELA Enoxaparin Sodium 40 mg 11/12/17 22:00 11/18/17 10:09 Lovenox - SQ 40 mg BID MAYELA Administration Folic Acid 1 mg 11/12/17 13:00 11/18/17 10:08 Folic Acid - PO 1 mg DAILY MAYELA Administration Gabapentin 600 mg 11/12/17 18:00 11/18/17 12:22 Neurontin - PO 600 mg Q6HPO MAYELA Administration Hydroxyurea 1,000 mg 11/13/17 10:00 11/18/17 10:09 Hydrea - PO 1,000 mg DAILY MAYELA Administration Sodium Chloride 1,000 mls @ 150 mls/hr 11/12/17 12:30 11/17/17 16:54 Normal Saline - IV 150 mls/hr ASDIR MAYELA Administration Levofloxacin 500 mg in 100 mls @ 100 mls/hr 11/14/17 16:00 11/18/17 10:09 Levaquin 500 Mg Premixed Ivpb - IVPB 100 mls/hr DAILY MAYELA Administration Morphine Sulfate 3 mg 11/14/17 15:00 11/18/17 10:09 Morphine Injection - IVPUSH 3 mg Q3H PRN Administration PAIN Multivitamins/Minerals/Vitamin C 1 tab 11/13/17 10:00 11/18/17 10:09 Tab-A-Vit - PO 1 tab DAILY MAYELA Administration Polyethylene Glycol 17 gm 11/17/17 10:00 11/18/17 10:12 Miralax (For Daily Use) - PO Not Given BID MAYELA CBC, BMP 11/18/17 09:00 11/18/17 09:00 Sickle cell crisis: simple VOC crisis hgb noted/retic count noted/bili is improving. no need for transfusion c/w hydrea, folate on levofloxacin Will order renal ultrasound - to r/o pyelobephritis due to flank pain Hx of DVT Diagnosed in 2009, 2015, patient reports she is on Lovenox 40mg sq bid
[2017-11-18] MEDS: SODIUM CHLORIDE 1,000 ML IV SCH (13:42)
[2017-11-18] MEDS ORDERED: HYDROCORTISONE 1% TOPICAL CREAM 30 GM TUBE TP PRN (14:36)
[2017-11-18] MEDS: oxyCODONE HCL 5 MG TABLET PO PRN ×2 (16:59→22:06)
[2017-11-18] MEDS ORDERED: oxyCODONE HCL 10 MG SUSTAINED ACTING TABLET PO SCH (22:00)
[2017-11-18] MEDS: DOCUSATE SODIUM 100 MG CAPSULE (FP) PO SCH (22:01)
[2017-11-19] MEDS: GABAPENTIN 300 MG CAPSULE (FP) PO SCH ×3 (01:00→12:15)
[2017-11-19] MEDS: oxyCODONE HCL 5 MG TABLET PO PRN ×2 (02:56→06:54)
[2017-11-19 06:25] VITALS: TEMP 97.6
[2017-11-19 08:35] LABS: CHLORIDE 104 mmol/L (98-107); POTASSIUM 4.5 mmol/L (3.5-5.1); SODIUM 139 mmol/L (136-145)
[2017-11-19 08:36] LABS: EOS % 4.1 % (0-4.5); HEMATOCRIT 27.2 % (32.4-45.2); HEMOGLOBIN 9.3 GM/dL (10.7-15.3); LYMPH % 46.5 % (8-40); MCH 38.2 pg (25.7-33.7); MEAN CELL VOLUME 112.3 fl (80-96); MEAN PLT VOLUME 7.7 fl (7.5-11.1); MONO % 8.4 % (3.8-10.2); PLATELET COUNT 400 K/MM3 (134-434); RBC 2.42 M/mm3 (3.60-5.2); RDW 18.2 % (11.6-15.6); WHITE BLOOD COUNT 10.9 K/mm3 (4.0-10.0)
[2017-11-19 08:45] LABS: ADD RBC MORPHOLOGY YES
[2017-11-19 08:59] LABS: ALBUMIN 3.9 g/dl (3.4-5.0); ALK PHOS 135 U/L (45-117); ANION GAP 10 (8-16); BILIRUBIN,TOTAL 2.2 mg/dL (0.2-1.0); BLOOD UREA NITROGEN 8 mg/dL (7-18); CALCIUM 8.8 mg/dL (8.5-10.1); CO2 25 mmol/L (21-32); CREATININE 0.6 mg/dL (0.55-1.02); GLUCOSE,RANDOM 84 mg/dL (74-106); SGOT/AST 53 U/L (15-37); SGPT/ALT 79 U/L (12-78); TOT PROT 7.2 g/dl (6.4-8.2)
[2017-11-19] MEDS ORDERED: oxyCODONE HCL 10 MG SUSTAINED ACTING TABLET PO SCH (09:47)
[2017-11-19] MEDS: LEVOFLOXACIN 500 MG IVPB 500 MG/100 ML BAG IVPB SCH (09:51)
[2017-11-19] MEDS: ASPIRIN 81 MG CHEWABLE TABLETS PO SCH (09:52)
[2017-11-19] MEDS: CYCLOBENZAPRINE HCL 10 MG TABLET (FP) PO SCH (09:52)
[2017-11-19] MEDS: ENOXAPARIN NA (PORCINE) 40 MG/0.4 ML DISP.SYRIN SQ SCH (09:52)
[2017-11-19] MEDS: HYDROXYUREA 500 MG CAPSULE PO SCH (09:52)
[2017-11-19] MEDS: FOLIC ACID 1 MG TABLET (FP) PO SCH (09:53)
[2017-11-19] MEDS: MULTIVITAMINS (DAILY MVI) TABLET (FP) PO SCH (09:53)
[2017-11-19] MEDS: POLYETHYLENE GLYCOL 3350 119 GM BTL PO SCH (09:53)
[2017-11-19 10:34] LABS: ANISOCYTOSIS 2+; MACROCYTOSIS 2+
[2017-11-19 11:10] LABS: PLATELET ESTIMATE SLT INCREASE
[2017-11-19 12:27] VITALS: BP 118/70; PULSE 92
--- NOTE | 2017-11-19 12:36 | PN ---
Progress Note (short form) - Note Progress Note: Patient seen and examined Feels well. Denies any complaints. no abdominal pain. No SOB/cough. Pain resolved. Wants to go home today PHYSICAL EXAMINATION Last Vital Signs Temp Pulse Resp BP Pulse Ox 97.6 F 92 H 18 118/70 96 11/19/17 06:00 11/19/17 10:00 11/19/17 10:00 11/19/17 10:00 11/19/17 09:00 Cor: RSR, No murmurs, No gallops Lungs: Clear to P&A Abd: Soft, Normal bowel sounds, No organomegaly Ext:No significant edema Abnormal Lab Results 11/19/17 11/19/17 07:20 07:20 WBC 10.9 H RBC 2.42 L Hgb 9.3 L Hct 27.2 L MCV 112.3 H MCH 38.2 H RDW 18.2 H Neutrophils % 40.0 L Lymphocytes % 46.5 H Retic Count 9.60 H D Total Bilirubin 2.2 H AST 53 H ALT 79 H Alkaline Phosphatase 135 H D Home Medication List Medication Instructions Recorded Confirmed Type Hydroxyurea [Hydrea] 1,000 mg PO DAILY 03/13/16 11/12/17 History Aspirin [ASA -] 81 mg PO DAILY 11/12/17 11/12/17 History Cyclobenzaprine HCl 10 mg PO QID 11/12/17 11/12/17 History Active Medications Generic Name Dose Route Start Last Admin Trade Name Freq PRN Reason Stop Dose Admin Aspirin 81 mg 11/13/17 10:00 11/19/17 09:52 Asa - PO 81 mg DAILY MAYELA Administration Cyclobenzaprine HCl 10 mg 11/12/17 14:00 11/19/17 09:52 Flexeril - PO 10 mg QID MAYELA Administration Docusate Sodium 300 mg 11/17/17 22:00 11/18/17 22:01 Colace - PO Not Given HS [facility] Enoxaparin Sodium 40 mg 11/12/17 22:00 11/19/17 09:52 Lovenox - SQ 40 mg BID MAYELA Administration Folic Acid 1 mg 11/12/17 13:00 11/19/17 09:53 Folic Acid - PO 1 mg DAILY MAYELA Administration Gabapentin 600 mg 11/12/17 18:00 11/19/17 12:15 Neurontin - PO 600 mg Q6HPO MAYELA Administration Hydrocortisone 1 applic 11/18/17 14:36 11/18/17 17:00 Hytone 1% Cream - TP 1 applic Q12H PRN Administration FOR ITCHING Hydroxyurea 1,000 mg 11/13/17 10:00 11/19/17 09:52 Hydrea - PO 1,000 mg DAILY MAYELA Administration Sodium Chloride 1,000 mls @ 150 mls/hr 11/12/17 12:30 11/18/17 13:42 Normal Saline - IV 150 mls/hr ASDIR MAYELA Administration Levofloxacin 500 mg in 100 mls @ 100 mls/hr 11/14/17 16:00 11/19/17 09:51 Levaquin 500 Mg Premixed Ivpb - IVPB 100 mls/hr DAILY MAYELA Administration Multivitamins/Minerals/Vitamin C 1 tab 11/13/17 10:00 11/19/17 09:53 Tab-A-Vit - PO 1 tab DAILY MAYELA Administration Oxycodone HCl 5 mg 11/18/17 14:35 11/19/17 06:54 Roxicodone - PO 5 mg Q4H PRN Administration PAIN LEVEL 6-10 Oxycodone HCl 20 mg 11/19/17 09:47 11/19/17 10:17 Oxycontin - PO 20 mg BID MAYELA Administration Polyethylene Glycol 17 gm 11/17/17 10:00 11/19/17 09:53 Miralax (For Daily Use) - PO Not Given BID MAYELA A/P This is a 22 year old female with PMHx of 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 Plan: 1) Sickle cell crisis: Resolved Hemoglobin stable and baseline continue hydrea/folic acid to f/u with primary tanning wheel operator -- Dr. Crow closely as outpatient 2 Hx of DVT - Diagnosed in 2009, 2015, patient reports she is on Lovenox 40mg sq bid 3. UTI---completed levaquin 4. mildly elevated LFTs--? levaquin. No pain. Will need to f/u closely with tanning wheel operator and f/u LFTs discussed with patient and primary team above recommendations and need for close f/u with hematology
== END 2017-11-19 13:38 | disposition home or self-care (01) | DRG 662 ==
LOC: JER 09:17 → JERBED 11:59 → J5S 19:51 → OBSVTOIN 11-13 14:07
PROVIDERS: ADMIT Internal Medicine; ATTEND Nurse Practitioner Acute Care
DX: D57.00 Hb-SS disease with crisis, unspecified (principal); N39.0 Urinary tract infection, site not specified; B96.20 Unspecified Escherichia coli [E. coli] as the cause of diseases classified elsewhere; R07.9 Chest pain, unspecified
CPT/HCPCS: 36415; 71045-TC; 76775-TC; 80053; 81003; 81015; 82550; 83615; 83735; 84100; 84484; 84703; 85025; 85027; 85044; 85610; 85730; 86850; 86900; 86901; 87086; 87186; 87389; 93005; 93010; 93970-TC; 94010; 97116-GP; 97161-GP; 99285-25; G0378; J8999

== ENCOUNTER 2017-12-17 | Emergency (ER) | payer OTHER ==
[2017-12-17 00:11] VITALS: BP 112/72; PULSE 96; TEMP 97.6; BMI 25.2
[2017-12-17] MEDS ORDERED: RANITIDINE HCL 150 MG TABLET (FP) PO ONE (02:06)
[2017-12-17] MEDS ORDERED: diphenhydrAMINE HCL 12.5 MG/5 ML UNIT-DOSE CUPS PO ONE (02:06)
[2017-12-17] MEDS ORDERED: predniSONE 20 MG TABLET (UD) PO ONE (02:06)
--- NOTE | 2017-12-17 02:11 | PDOC ---
History of Present Illness <Capri Smith - Last Filed: 12/17/17 02:22> - History of Present Illness Initial Comments: 12/17/17 02:06 22 yo F with h/o SS disease who presents with rash. Patient reports acute onset rash on neck with progression down breast and abdomen over past 48 hours. Denies new allergen exposure. Denies new shampoo, fragrances, soaps, detergents , clothes, bedding. Denies mouth, eye, face, or inguinal involvement. Denies tongue or lip swelling. Denies N/V, F/C, myalgias, CP, SOB, wheezing, cough, abdominal pain, urinary complaints, lightheadedness. Reports PO intake diphendhydramine 25 mg x 2. Patient with seasonal and food allergies. Allergy to latex. Recent central port placement ( 12/13/17) awaiting BMT. <Von Strong - Last Filed: 12/17/17 02:37> - General Chief Complaint: Rash Stated Complaint: RASH Time Seen by Provider: 12/17/17 01:53 Past History <Capri Smith - Last Filed: 12/17/17 02:22> - Past Medical History Anemia: Yes (sickle cell) Asthma: No Cancer: No Cardiac Disorders: No CVA: No COPD: No Dementia: No Diabetes: No Dialysis: No GI Disorders: No Disorders: No HTN: No Hypercholesterolemia: No Kidney Stones: No Liver Disease: No Seizures: No Thyroid Disease: No - Surgical History Abdominal Surgery: No Appendectomy: No Cardiac Surgery: No Cholecystectomy: Yes Lung Surgery: No Neurologic Surgery: No - Reproductive History Spontaneous : 2 - Immunization History Immunization Up to Date: Yes - Suicide/Smoking/Psychosocial Hx Smoking Status: No Smoking History: Never smoked Years of Tobacco Use: 0 Have you smoked in the past 12 months: Yes Number of Cigarettes Smoked Daily: 10 Information on smoking cessation initiated: No Hx Alcohol Use: No Drug/Substance Use Hx: No Substance Use Type: None Hx Substance Use Treatment: No <Von Strong - Last Filed: 12/17/17 02:37> - Past Medical History Allergies/Adverse Reactions: Allergies Allergy/AdvReac Type Severity Reaction Status Date / Time ceftriaxone Allergy Verified 12/17/17 00:07 ceftriaxone sodium Allergy rash Verified 12/17/17 00:07 [From Rocephin] redness hydromorphone HCl Allergy Rash Verified 12/17/17 00:07 [From Dilaudid] Latex, Natural Rubber Allergy Verified 12/17/17 02:23 Penicillins Allergy Rash Verified 12/17/17 00:07 Home Medications: Ambulatory Orders Hydroxyurea [Hydrea] 1,000 mg PO DAILY 03/13/16 Gabapentin [Neurontin -] 600 mg PO Q6HPO 30 Days capsule 10/11/16 Aspirin [ASA -] 81 mg PO DAILY 11/12/17 Cyclobenzaprine HCl 10 mg PO QID 11/12/17 Oxycodone HCl 10 mg PO BID PRN #20 tablet MDD 2 11/19/17 Diphenhydramine HCl [Benadryl -] 25 mg PO Q6H #28 capsule 12/17/17 Prednisone [Prednisone 50 MG TABLETS] 50 mg PO DAILY #4 tablet 12/17/17 Review of Systems - Review of Systems Comments:: 12/17/17 02:10 GENERAL/CONSTITUTIONAL: No fever or chills. No weakness. HEAD, EYES, EARS, NOSE AND THROAT: No change in vision. No ear pain or discharge. No sore throat.- CARDIOVASCULAR: No chest pain or shortness of breath RESPIRATORY: No cough, wheezing, or hemoptysis. GASTROINTESTINAL: No nausea, vomiting, diarrhea or constipation. GENITOURINARY: No dysuria, frequency, or change in urination. MUSCULOSKELETAL: No joint or muscle swelling or pain. No neck or back pain. SKIN: No rash NEUROLOGIC: No headache, vertigo, loss of consciousness, or change in strength/ sensation. ENDOCRINE: No increased thirst. No abnormal weight change HEMATOLOGIC/LYMPHATIC: No anemia, easy bleeding, or history of blood clots. ALLERGIC/IMMUNOLOGIC: + Rash/hives. <Von Strong - Last Filed: 12/17/17 02:37> *Physical Exam - Vital Signs Last Vital Signs Temp Pulse Resp BP Pulse Ox 97.6 F 96 H 18 112/72 99 12/17/17 00:08 12/17/17 00:08 12/17/17 00:08 12/17/17 00:08 12/17/17 00:08 <Capri Smith - Last Filed: 12/17/17 02:22> - Vital Signs Last Vital Signs Temp Pulse Resp BP Pulse Ox 97.6 F 96 H 18 112/72 99 12/17/17 00:08 12/17/17 00:08 12/17/17 00:08 12/17/17 00:08 12/17/17 00:08 - Physical Exam Comments: 12/17/17 02:11 GENERAL: Awake, alert, and fully oriented, in no acute distress HEAD: No signs of trauma, normocephalic, atraumatic EYES: PERRLA, EOMI, sclera anicteric, conjunctiva clear ENT: Auricles normal inspection, hearing grossly normal, nares patent, oropharynx clear without exudates. Moist mucosa NECK: Normal ROM, supple, no lymphadenopathy, JVD, or masses LUNGS: No distress, speaks full sentences, clear to auscultation bilaterally HEART: Regular rate and rhythm, normal S1 and S2, no murmurs, rubs or gallops, peripheral pulses normal and equal bilaterally. ABDOMEN: Soft, nontender, normoactive bowel sounds. No guarding, no rebound. No masses EXTREMITIES : Normal inspection, Normal range of motion, no edema. No clubbing or cyanosis. SKIN: Diffuse pruitic, raised, urticarial, skin change extending from post neck to chest to inframammary folds. Rash non vesicular. Not actively draining. <Von Strong - Last Filed: 12/17/17 02:37> Medical Decision Making - Medical Decision Making 12/17/17 02:32 22 yo F with h/o SS disease who presents with acute onset urticarial rash on neck with progression down breast and abdomen over past 48 hours. Denies new allergen exposure. Denies N/V, F/C, tongue/lip swelling, myalgias, CP, SOB, wheezing, cough, abdominal pain, urinary complaints, lightheadedness. Reports PO intake diphendhydramine 25 mg x 2. Allergy to latex. Recent central port placement ( 12/13/17) awaiting BMT. Diffuse pruitic, raised, urticarial, skin change extending from post neck to chest to inframammary folds. No face, eye, mouth involvement. Patient rash most likely IgE mediated atopic dermatitis attributed to Tegaderm placement overlying central catheter. Less liekly VZV. Rash is non vesicular and non dermatomal. No evidence of anaphylaxis. Absent stridor, airway edema, or other evidence of resp. compromise. ED course: Prednisone 60 mg, Diphehydramine 25 mg, Ranitidine 150 mg PO. Patient symptoms improved.Stable for d/c with return precautions. <Von Strong - Last Filed: 12/17/17 02:37> *DC/Admit/Observation/Transfer - Discharge Dispostion Admit: No <Capri Smith - Last Filed: 12/17/17 02:22> <Von Strong - Last Filed: 12/17/17 02:37> Diagnosis at time of Disposition: Allergic reaction - Discharge Dispostion Disposition: HOME Condition at time of disposition: Stable - Prescriptions Prescriptions: Diphenhydramine HCl [Benadryl -] 25 mg PO Q6H #28 capsule Prednisone [Prednisone 50 MG TABLETS] 50 mg PO DAILY #4 tablet - Referrals Referrals: Phu Crow MD [Primary Care Provider] - - Patient Instructions Printed Discharge Instructions: DI for General Allergic Reactions - Post Discharge Activity
--- NOTE | 2017-12-17 02:12 | PDOC ---
Attending Attestation - Resident Resident Name: Von Strong - ED Attending Attestation I have performed the following: I have examined & evaluated the patient, The case was reviewed & discussed with the resident, I agree w/resident's findings & plan - HPI HPI: 12/17/17 02:26 Pt has an allergic reaction on her neck and chest. SHe has known latex allergy, dilaudid allergy and pcn allergy. She is now allergic to the tegaderm on her chest; pt has a port that was placed on so she could get stem cell donations from her sister (pt suffers with sickle cell)
[2017-12-17] MEDS ORDERED: diphenhydrAMINE HCL 25 MG CAPSULE (FP) PO ONE (02:15)
[2017-12-17] MEDS ORDERED: predniSONE 20 MG TABLET (UD) ONE (02:15)
[2017-12-17] MEDS ORDERED: RANITIDINE HCL 150 MG TABLET (FP) ONE (02:16)
== END 2017-12-17 02:44 | disposition home or self-care (01) ==
LOC: JER
DX: L50.0 Allergic urticaria (principal); T78.40XA Allergy, unspecified, initial encounter; D57.1 Sickle-cell disease without crisis
CPT/HCPCS: 99282-25